=== PATIENT | male | born 1955 | race Caucasian/White ===

== ENCOUNTER 2018-09-02 09:14 | Observation (INO) | payer OTHER ==
[~2018-09-02] VITALS: Ht 175.3 cm; Wt 100.0 kg
[~2018-09-02 09:14] MED LIST: CYAN10005 PO; ERGO500027 PO; HYDR-2869 PO; LIPA1CAP6 PO; LOSA-73 PO; MELO15TA23 PO; OMEP20TA63 PO; TRAM50TA PO
[2018-09-02] MEDS ORDERED: IV NORMAL SALINE 1000ML BAG 1,000 ML IV SCH (09:27)
[2018-09-02] MEDS ORDERED: ASPIRIN CHEWABLE 81 MG TABLET. PO ONE (09:30)
[2018-09-02] MEDS ORDERED: ONDANSETRON PF 4 MG/2 ML VIAL. IV ONE (09:30)
--- NOTE | 2018-09-02 09:31 | PHYS DOC ---
Past Medical History Past Medical History: Hypertension, Pancreatitis Past Surgical History: Tonsillectomy Additional Past Surgical Histo: hernia repair. Alcohol Use: Heavy (on the weekends) Drug Use: None Adult General Chief Complaint Chief Complaint: CHEST PAIN HPI HPI Patient is a 62 year old male who presents with chest pain. This started yesterday morning. It has been getting worse over time. Patient describes it as both sharp and dull, no radiation, no association with exertion or movement. Patient had similar but less intense pain and he had previous pancreatitis. Patient has had some nausea for the past 2 days, even before this started, after eating some frozen sausage at home. Patient denies any travel, denies cough or fever. Denies any radiation of the discomfort. Notes that his pillow was soaking wet this morning. Otherwise denies any diaphoresis.[] Review of Systems Review of Systems Constitutional: Denies fever or chills [] Eyes: Denies change in visual acuity, redness, or eye pain [] HENT: Denies nasal congestion or sore throat [] Respiratory: Denies cough or shortness of breath [] Cardiovascular: No additional information not addressed in HPI [] GI: Denies abdominal pain, nausea, vomiting, bloody stools or diarrhea [] : Denies dysuria or hematuria [] Musculoskeletal: Denies back pain or joint pain [] Integument: Denies rash or skin lesions [] Neurologic: Denies headache, focal weakness or sensory changes [] Endocrine: Denies polyuria or polydipsia [] All other systems were reviewed and found to be within normal limits, except as documented in this note. Current Medications Current Medications Current Medications Medications (Trade) Dose Ordered Sig/Abimael Start Time Stop Time Status Last Admin Dose Admin Aspirin (Children'S Aspirin) 324 mg 1X ONCE 09/02/18 09:30 09/02/18 09:31 DC 09/02/18 09:52 324 MG Info (CONTRAST GIVEN -- Rx MONITORING) 1 each PRN DAILY PRN 09/02/18 11:45 09/04/18 11:44 Iohexol (Omnipaque 300 Mg/ml) 75 ml 1X ONCE 09/02/18 11:30 09/02/18 11:31 DC 09/02/18 11:38 75 ML Morphine Sulfate (Morphine Sulfate) 4 mg 1X ONCE 09/02/18 13:00 09/02/18 13:02 DC 09/02/18 13:09 4 MG Ondansetron HCl (Zofran) 4 mg 1X ONCE 09/02/18 09:30 09/02/18 09:31 DC 09/02/18 09:49 4 MG Sodium Chloride 1,000 ml @ 1,000 mls/hr Q1H 09/02/18 09:27 09/02/18 10:26 DC 09/02/18 09:47 1,000 MLS/HR Allergies Allergies Allergies Coded Allergies Type Severity Reaction Last Updated Verified No Known Drug Allergies 12/07/15 No Physical Exam Physical Exam Constitutional: Well developed, well nourished, mild discomfort, non-toxic appearance. [] HENT: Normocephalic, atraumatic, bilateral external ears normal, oropharynx moist, no oral exudates, nose normal. [] Eyes: PERRLA, EOMI, conjunctiva normal, no discharge. [] Neck: Normal range of motion, no tenderness, supple, no stridor. [] Cardiovascular:Heart rate regular rhythm, no murmur [] Lungs & Thorax: Bilateral breath sounds clear to auscultation [] Abdomen: Bowel sounds normal, soft, no tenderness, no masses, no pulsatile masses. [] Skin: Warm, dry, no erythema, no rash. [] Back: No tenderness, no CVA tenderness. [] Extremities: No tenderness, no cyanosis, no clubbing, ROM intact, no edema. [] Neurologic: Alert and oriented X 3, normal motor function, normal sensory function, no focal deficits noted. [] Psychologic: Affect normal, judgement normal, mood normal. [] Current Patient Data Vital Signs Vital Signs Date Time Temp Pulse Resp B/P (MAP) Pulse Ox O2 Delivery O2 Flow Rate FiO2 09/02/18 10:30 70 11 148/91 (110) 96 Room Air 09/02/18 09:14 98.0 98.0 Lab Values Laboratory Tests Test 09/02/18 09:29 09/02/18 09:39 09/02/18 09:40 D-Dimer (Flaquita) 0.59 ug/mlFEU (0.00-0.50) H POC Troponin I 0.00 ng/ml (<0.08) White Blood Count 7.7 x10^3/uL (4.0-11.0) Red Blood Count 5.07 x10^6/uL (4.30-5.70) Hemoglobin 15.2 g/dL (13.0-17.5) Hematocrit 45.1 % (39.0-53.0) Mean Corpuscular Volume 89 fL (79-100) Mean Corpuscular Hemoglobin 30 pg (25-35) Mean Corpuscular Hemoglobin Concent 34 g/dL (31-37) Red Cell Distribution Width 12.9 % (11.5-14.5) Platelet Count 233 x10^3/uL (140-400) Neutrophils (%) (Auto) 72 % (31-73) Lymphocytes (%) (Auto) 14 % (24-48) L Monocytes (%) (Auto) 11 % (0-9) H Eosinophils (%) (Auto) 1 % (0-3) Basophils (%) (Auto) 1 % (0-3) Neutrophils # (Auto) 5.5 x10^3uL (1.8-7.7) Lymphocytes # (Auto) 1.1 x10^3/uL (1.0-4.8) Monocytes # (Auto) 0.9 x10^3/uL (0.0-1.1) Eosinophils # (Auto) 0.1 x10^3/uL (0.0-0.7) Basophils # (Auto) 0.1 x10^3/uL (0.0-0.2) Prothrombin Time 13.3 SEC (11.7-14.0) Prothrombin Time INR 1.0 (0.8-1.1) Sodium Level 139 mmol/L (136-145) Potassium Level 4.0 mmol/L (3.5-5.1) Chloride Level 100 mmol/L (98-107) Carbon Dioxide Level 27 mmol/L (21-32) Anion Gap 12 (6-14) Blood Urea Nitrogen 12 mg/dL (8-26) Creatinine 1.0 mg/dL (0.7-1.3) Estimated GFR (Cockcroft-Gault) 75.7 BUN/Creatinine Ratio 12 (6-20) Glucose Level 107 mg/dL (70-99) H Calcium Level 8.4 mg/dL (8.5-10.1) L Magnesium Level 1.7 mg/dL (1.8-2.4) L Total Bilirubin 0.9 mg/dL (0.2-1.0) Aspartate Amino Transferase (AST) 71 U/L (15-37) H Alanine Aminotransferase (ALT) 82 U/L (16-63) H Alkaline Phosphatase 76 U/L (46-116) Troponin I Quantitative < 0.017 ng/mL (0.000-0.055) XB-Ilf-H-Type Natriuretic Peptide 83 pg/mL (0-124) Total Protein 7.1 g/dL (6.4-8.2) Albumin 3.7 g/dL (3.4-5.0) Albumin/Globulin Ratio 1.1 (1.0-1.7) Lipase 30 U/L (73-393) L Laboratory Tests 09/02/18 09:40 Laboratory Tests 09/02/18 09:40 EKG EKG EKG shows a sinus rhythm at 79 bpm, normal axis, normal QTC at 423 ms, no ST elevations, no acute changes when compared with EKG of 07/07/2018. This was interpreted by me at 0921[] Radiology/Procedures Radiology/Procedures PROCEDURE: PORTABLE CHEST 1V CLINICAL INDICATION: CHEST PAIN COMPARISON: None FINDINGS: No pneumothorax identified. Cardiac and mediastinal contours unremarkable. No pulmonary consolidation or acute airspace disease. No acute osseous abnormalities identified. IMPRESSION: No pulmonary consolidation or acute airspace disease. TECHNIQUE: CT abdomen and pelvis with IV contrast with multiplanar reformats. COMPARISON: 07/07/2018 FINDINGS: Heart is normal in size. No pericardial or pleural effusion. Clear lung bases. Scattered calcified granulomas in the spleen and liver. Otherwise, liver, adrenals, spleen and gallbladder are within normal limits. Diffuse dystrophic calcifications are seen in the pancreas. No peripancreatic inflammatory changes. Stable diffusely dilated main pancreatic duct measuring 1.8 cm in the pancreatic head, previously seen. CBD is nondilated. No enlarged retroperitoneal or pelvic adenopathy. No free pelvic fluid or ascites. Exophytic low attenuating lesion is seen in the interpolar left kidney measuring 2.2 x 1.4 cm, previously 2.2 x 1.4 cm. Low attenuating lesion in the inferior pole of the right kidney most likely simple cysts. No nephrolithiasis or hydronephrosis. The prostate and seminal vesicles show no large mass. Small bilateral fat-containing inguinal hernia. No bowel obstruction. Normal appendix. Urinary bladder is within normal limits. No suspicious bony lesion. IMPRESSION: 1. Stigmata of chronic pancreatitis with stable diffuse dilation of the main pancreatic duct. No peripancreatic inflammatory changes or pseudocyst.. 2. Likely couple of simple or minimally complicated renal cysts.[] Course & Med Decision Making Course & Med Decision Making Pertinent Labs and Imaging studies reviewed. (See chart for details) ED course: Patient arrived, was placed in bed, in tolerated exam well. Patient required several doses of morphine for pain management during his emergency department stay. He was transported to and from [place] without complications. After the return of the laboratory and imaging findings, these were discussed with the patient voiced understanding. All questions were answered. Concern for this significant pain being of potential cardiac etiology, consultation was made with hospitalist service who graciously admitted him. Patient was admitted in improved condition Medical decision making: This does not appear to be an ST elevation [place], however there is concerned about this being of potential cardiac etiology. There is no evidence of pneumonia, pneumothorax, congestive heart failure, thoracic aneurysm dissection, nor esophageal rupture. There is no evidence of pancreatitis on CT imaging that is new, rather it appears to be chronic pancreatitis on CT scan. [] Dragon Disclaimer Dragon Disclaimer This electronic medical record was generated, in whole or in part, using a voice recognition dictation system. Departure Departure Impression: Primary Impression: Chest pain Disposition: ADMITTED INPATIENT Admitting Physician: Other Condition: IMPROVED Referrals: OMKAR SHIN MD (PCP) Problem Qualifiers Primary Impression: Chest pain Chest pain type: unspecified Qualified Codes: R07.9 - Chest pain, unspecified LAI KEITA DO Sep 02, 2018 09:31
[2018-09-02] MEDS ORDERED: MORPHINE SULFATE 4 MG/ML VIAL. IV ONE ×2 (10:00→13:00)
--- NOTE | 2018-09-02 10:01 | RAD ---
PROCEDURE: PORTABLE CHEST 1V CLINICAL INDICATION: CHEST PAIN COMPARISON: None FINDINGS: No pneumothorax identified. Cardiac and mediastinal contours unremarkable. No pulmonary consolidation or acute airspace disease. No acute osseous abnormalities identified. IMPRESSION: No pulmonary consolidation or acute airspace disease. Electronically signed by: Alexander Hsieh DO (09/02/2018 9:58 AM) [id number]
[2018-09-02 10:02] LABS: BASO # 0.1 x10^3/uL (0.0-0.2); BASO % 1 % (0-3); EOS # 0.1 x10^3/uL (0.0-0.7); EOS % 1 % (0-3); HEMATOCRIT 45.1 % (39.0-53.0); HEMOGLOBIN 15.2 g/dL (13.0-17.5); LYMPH # 1.1 x10^3/uL (1.0-4.8); LYMPH % 14 % (24-48); MEAN CORPUSCULAR HEMOGLOBIN 30 pg (25-35); MEAN CORPUSCULAR HGB CONC 34 g/dL (31-37); MEAN CORPUSCULAR VOLUME 89 fL (79-100); MONO # 0.9 x10^3/uL (0.0-1.1); MONO % 11 % (0-9); NEUT # 5.5 x10^3uL (1.8-7.7); NEUT % 72 % (31-73); PLATELET COUNT 233 x10^3/uL (140-400); RED BLOOD COUNT 5.07 x10^6/uL (4.30-5.70); RED CELL DISTRIBUTION WIDTH 12.9 % (11.5-14.5); WHITE BLOOD COUNT 7.7 x10^3/uL (4.0-11.0)
[2018-09-02 10:07] LABS: PROTHROMBIN TIME PATIENT 13.3 SEC (11.7-14.0)
[2018-09-02 10:15] LABS: CALCIUM 8.4 mg/dL (8.5-10.1); GFR 75.7
[2018-09-02 10:20] LABS: ALBUMIN 3.7 g/dL (3.4-5.0); ALBUMIN/GLOBULIN RATIO 1.1 (1.0-1.7); MAGNESIUM 1.7 mg/dL (1.8-2.4); TOTAL BILIRUBIN 0.9 mg/dL (0.2-1.0); TOTAL PROTEIN 7.1 g/dL (6.4-8.2)
[2018-09-02] MEDS ORDERED: IOHEXOL 300 MG/ML 100ML VIAL. IV ONE (11:30)
[2018-09-02] MEDS ORDERED: CONTRAST GIVEN. MC PRN (11:45)
--- NOTE | 2018-09-02 12:06 | RAD ---
PQRS Compliance statement: One or more of the following individualized dose reduction techniques were utilized for this examination: 1. Automated exposure control. 2. Adjustment of the mA and/or kV according to patient size. 3. Use of iterative reconstruction technique. Indication:ABD PAIN H/O PANCREATITIS PREV SENT INJ 75ML OMNI 300 TECHNIQUE: CT abdomen and pelvis with IV contrast with multiplanar reformats. COMPARISON: 07/07/2018 FINDINGS: Heart is normal in size. No pericardial or pleural effusion. Clear lung bases. Scattered calcified granulomas in the spleen and liver. Otherwise, liver, adrenals, spleen and gallbladder are within normal limits. Diffuse dystrophic calcifications are seen in the pancreas. No peripancreatic inflammatory changes. Stable diffusely dilated main pancreatic duct measuring 1.8 cm in the pancreatic head, previously seen. CBD is nondilated. No enlarged retroperitoneal or pelvic adenopathy. No free pelvic fluid or ascites. Exophytic low attenuating lesion is seen in the interpolar left kidney measuring 2.2 x 1.4 cm, previously 2.2 x 1.4 cm. Low attenuating lesion in the inferior pole of the right kidney most likely simple cysts. No nephrolithiasis or hydronephrosis. The prostate and seminal vesicles show no large mass. Small bilateral fat-containing inguinal hernia. No bowel obstruction. Normal appendix. Urinary bladder is within normal limits. No suspicious bony lesion. IMPRESSION: 1. Stigmata of chronic pancreatitis with stable diffuse dilation of the main pancreatic duct. No peripancreatic inflammatory changes or pseudocyst.. 2. Likely couple of simple or minimally complicated renal cysts. Electronically signed by: Alexander Hsieh DO (09/02/2018 12:03 PM) [id number]
[2018-09-02] MEDS ORDERED: cloNIDine HCL 0.1 MG TABLET PO PRN (13:15)
[2018-09-02] MEDS ORDERED: ONDANSETRON PF 4 MG/2 ML VIAL. IV PRN (13:15)
[2018-09-02] MEDS ORDERED: ACETAMINOPHEN 325 MG TABLET. PO PRN (13:15)
[2018-09-02] MEDS ORDERED: guaiFENesin ORAL 200 MG/10 ML LIQUID. PO PRN (13:15)
[2018-09-02] MEDS ORDERED: SODIUM PHOSPHATES 19/7GM 133 ML ENEMA. PR PRN (13:15)
[2018-09-02] MEDS ORDERED: DOCUSATE SODIUM 100 MG CAPSULE. PO PRN (13:15)
--- NOTE | 2018-09-02 15:14 | EKG ---
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
[2018-09-02] MEDS ORDERED: IPRATRPIUM/ALBUTEROL 0.5/2.5MG 3 ML NEBU. NEB SCH ×2 (16:00)
[2018-09-02 16:30] VITALS: BP 159/95
--- NOTE | 2018-09-02 16:36 | PDOC1 ---
History and Physical Date of Admission Date of Admission 09/02/2018 Identification/Chief Complaint Chief Complaint bonilla townsend Problems: (1) Chronic pancreatitis Source Source: Patient History of Present Illness History of Present Illness Patient is a 69-year-old gentleman with past medical history of pancreatitis in the past. Comes today with a history of 2 days evolution of epigastric discomfort with nausea. As a consequence of his symptoms he has not had any oral intake food or water. Very little fluids he relates after eating him on a different way. The patient relates that his symptoms are very similar as his past pancreatitis bouts. He seems dehydrated and in acute distress due to his discomfort. He denies emesis hematemesis no diarrhea he denies chest pain precordial per se. There is that discomfort in the epigastrium no radiation to the back no fever or chills were reported no cough or sputum production has been reported either. We have been asked to admit for chest pain rule out and he seems to have more of a GI etiology of his symptoms rather than cardiac. EKG does not have ischemic changes troponin is not elevated and despite his lipase being normal given that he has had several bouts in the past this may be a false negative lab results. The patient has a mild elevation of d-dimer which adjusted for age is in the normal range. He is being admitted for further treatment of his symptoms He denies diaphoresis sensation of impending doom or angina-type of symptoms. ER record: Patient is a 62 year old male who presents with chest pain. This started yesterday morning. It has been getting worse over time. Patient describes it as both sharp and dull, no radiation, no association with exertion or movement. Patient had similar but less intense pain and he had previous pancreatitis. Patient has had some nausea for the past 2 days, even before this started, after eating some frozen sausage at home. Patient denies any travel, denies cough or fever. Denies any radiation of the discomfort. Notes that his pillow was soaking wet this morning. Otherwise denies any diaphoresis. Past Medical History Cardiovascular: HTN Psych: Anxiety, Addictions Past Surgical History Past Surgical History: Tonsillectomy Family History Family History: Family History Unknown Social History ALCOHOL: heavy Drugs: None Current Problem List Problem List Problems Medical Problems: (1) Chest pain Status: Acute Current Medications Current Medications Current Medications Medications (Trade) Dose Ordered Sig/Abimael Start Time Stop Time Status Last Admin Dose Admin Acetaminophen (Tylenol) 650 mg PRN Q4HRS PRN 09/02/18 13:15 Albuterol/ Ipratropium (Duoneb) 3 ml Q4HRS 09/02/18 16:00 UNV Aspirin (Children'S Aspirin) 324 mg 1X ONCE 09/02/18 09:30 09/02/18 09:31 DC 09/02/18 09:52 324 MG Clonidine HCl (Catapres) 0.1 mg PRN Q6HRS PRN 09/02/18 13:15 Cyanocobalamin (Vitamin B-12) 1,000 mcg DAILY 09/03/18 09:00 UNV Docusate Sodium (Colace) 100 mg PRN BID PRN 09/02/18 13:15 Enoxaparin Sodium (Lovenox 40mg Syringe) 40 mg DAILY 09/03/18 09:00 Ergocalciferol (Vitamin D2) 50,000 unit WEEKLY 09/09/18 09:00 Guaifenesin (Robitussin) 200 mg PRN Q4HRS PRN 09/02/18 13:15 Info (CONTRAST GIVEN -- Rx MONITORING) 1 each PRN DAILY PRN 09/02/18 11:45 09/04/18 11:44 Iohexol (Omnipaque 300 Mg/ml) 75 ml 1X ONCE 09/02/18 11:30 09/02/18 11:31 DC 09/02/18 11:38 75 ML Lorazepam (Ativan) 0.5 mg PRN Q4HRS PRN 09/02/18 13:15 Losartan Potassium (Cozaar) 50 mg DAILY 09/03/18 09:00 UNV Morphine Sulfate (Morphine Sulfate) 4 mg 1X ONCE 09/02/18 13:00 09/02/18 13:02 DC 09/02/18 13:09 4 MG Non-Formulary Medication (Hydralazine Hcl ) 50 mg TID 09/02/18 14:00 UNV Non-Formulary Medication (Lipase/Protease/ Amylase (Creon Dr 24,000 Units Capsule)) 1 each QID 09/02/18 17:00 UNV Non-Formulary Medication (Omeprazole Magnesium (Prilosec Otc)) 1 tab DAILY 09/03/18 09:00 UNV Ondansetron HCl (Zofran) 4 mg PRN Q4HRS PRN 09/02/18 13:15 Sodium Monofluorophosphate (Fleet Adult) 133 ml PRN DAILY PRN 09/02/18 13:15 Sodium Chloride 1,000 ml @ 1,000 mls/hr Q1H 09/02/18 09:27 09/02/18 10:26 DC 09/02/18 09:47 1,000 MLS/HR Tramadol HCl (Ultram) 50 mg PRN Q6HRS PRN 09/02/18 13:15 Zolpidem Tartrate (Ambien) 5 mg PRN QHS PRN 09/02/18 13:15 Allergies Allergies Allergies Coded Allergies Type Severity Reaction Last Updated Verified No Known Drug Allergies 12/07/15 No ROS Review of System CONSTITUTIONAL: No fever or chills EYES: No recent changes SKIN: No rash or itching CARDIOVASCULAR: No chest pain, syncope, palpitations, or edema RESPIRATORY: No SOB or cough GASTROINTESTINAL: No nausea, vomiting or abdominal pain NEUROLOGICAL: No headaches or weakness ENDOCRINE: No cold or heat intolerance GENITOURINARY: No urgency or frequency of urination MUSCULOSKELETAL: No back pain or joint pain LYMPHATICS: No enlarged lymph nodes PSYCHIATRIC: No anxiety or depression Physical Exam Physical Exam GEN.: No apparent distress. Alert and oriented. HEENT: Head is normocephalic, atraumatic NECK: Supple. LUNGS: Clear to auscultation. HEART: RRR, S1, S2 present. Peripheral pulses intact ABDOMEN: Soft, nontender. Positive bowel sounds. EXTREMITIES: Without any cyanosis. NEUROLOGIC: Normal speech, normal tone PSYCHIATRIC: Normal affect, normal mood. SKIN: No ulcerations Vitals Vitals Vital Signs Date Time Temp Pulse Resp B/P (MAP) Pulse Ox O2 Delivery O2 Flow Rate FiO2 09/02/18 13:09 11 95 Room Air 09/02/18 10:30 70 148/91 (110) 09/02/18 09:14 98.0 98.0 Labs Labs Laboratory Tests Test 09/02/18 09:29 09/02/18 09:39 09/02/18 09:40 D-Dimer (Flaquita) 0.59 ug/mlFEU (0.00-0.50) Bedside Troponin I 0.00 ng/ml (<0.08) White Blood Count 7.7 x10^3/uL (4.0-11.0) Red Blood Count 5.07 x10^6/uL (4.30-5.70) Hemoglobin 15.2 g/dL (13.0-17.5) Hematocrit 45.1 % (39.0-53.0) Mean Corpuscular Volume 89 fL (79-100) Mean Corpuscular Hemoglobin 30 pg (25-35) Mean Corpuscular Hemoglobin Concent 34 g/dL (31-37) Red Cell Distribution Width 12.9 % (11.5-14.5) Platelet Count 233 x10^3/uL (140-400) Neutrophils (%) (Auto) 72 % (31-73) Lymphocytes (%) (Auto) 14 % (24-48) Monocytes (%) (Auto) 11 % (0-9) Eosinophils (%) (Auto) 1 % (0-3) Basophils (%) (Auto) 1 % (0-3) Neutrophils # (Auto) 5.5 x10^3uL (1.8-7.7) Lymphocytes # (Auto) 1.1 x10^3/uL (1.0-4.8) Monocytes # (Auto) 0.9 x10^3/uL (0.0-1.1) Eosinophils # (Auto) 0.1 x10^3/uL (0.0-0.7) Basophils # (Auto) 0.1 x10^3/uL (0.0-0.2) Prothrombin Time 13.3 SEC (11.7-14.0) Prothromb Time International Ratio 1.0 (0.8-1.1) Sodium Level 139 mmol/L (136-145) Potassium Level 4.0 mmol/L (3.5-5.1) Chloride Level 100 mmol/L (98-107) Carbon Dioxide Level 27 mmol/L (21-32) Anion Gap 12 (6-14) Blood Urea Nitrogen 12 mg/dL (8-26) Creatinine 1.0 mg/dL (0.7-1.3) Estimated GFR (Cockcroft-Gault) 75.7 BUN/Creatinine Ratio 12 (6-20) Glucose Level 107 mg/dL (70-99) Calcium Level 8.4 mg/dL (8.5-10.1) Magnesium Level 1.7 mg/dL (1.8-2.4) Total Bilirubin 0.9 mg/dL (0.2-1.0) Aspartate Amino Transf (AST/SGOT) 71 U/L (15-37) Alanine Aminotransferase (ALT/SGPT) 82 U/L (16-63) Alkaline Phosphatase 76 U/L (46-116) Troponin I Quantitative < 0.017 ng/mL (0.000-0.055) RK-Zlm-P-Type Natriuretic Peptide 83 pg/mL (0-124) Total Protein 7.1 g/dL (6.4-8.2) Albumin 3.7 g/dL (3.4-5.0) Albumin/Globulin Ratio 1.1 (1.0-1.7) Lipase 30 U/L (73-393) Laboratory Tests Test 09/02/18 09:29 09/02/18 09:39 09/02/18 09:40 D-Dimer (Flaquita) 0.59 ug/mlFEU (0.00-0.50) Bedside Troponin I 0.00 ng/ml (<0.08) White Blood Count 7.7 x10^3/uL (4.0-11.0) Red Blood Count 5.07 x10^6/uL (4.30-5.70) Hemoglobin 15.2 g/dL (13.0-17.5) Hematocrit 45.1 % (39.0-53.0) Mean Corpuscular Volume 89 fL (79-100) Mean Corpuscular Hemoglobin 30 pg (25-35) Mean Corpuscular Hemoglobin Concent 34 g/dL (31-37) Red Cell Distribution Width 12.9 % (11.5-14.5) Platelet Count 233 x10^3/uL (140-400) Neutrophils (%) (Auto) 72 % (31-73) Lymphocytes (%) (Auto) 14 % (24-48) Monocytes (%) (Auto) 11 % (0-9) Eosinophils (%) (Auto) 1 % (0-3) Basophils (%) (Auto) 1 % (0-3) Neutrophils # (Auto) 5.5 x10^3uL (1.8-7.7) Lymphocytes # (Auto) 1.1 x10^3/uL (1.0-4.8) Monocytes # (Auto) 0.9 x10^3/uL (0.0-1.1) Eosinophils # (Auto) 0.1 x10^3/uL (0.0-0.7) Basophils # (Auto) 0.1 x10^3/uL (0.0-0.2) Prothrombin Time 13.3 SEC (11.7-14.0) Prothromb Time International Ratio 1.0 (0.8-1.1) Sodium Level 139 mmol/L (136-145) Potassium Level 4.0 mmol/L (3.5-5.1) Chloride Level 100 mmol/L (98-107) Carbon Dioxide Level 27 mmol/L (21-32) Anion Gap 12 (6-14) Blood Urea Nitrogen 12 mg/dL (8-26) Creatinine 1.0 mg/dL (0.7-1.3) Estimated GFR (Cockcroft-Gault) 75.7 BUN/Creatinine Ratio 12 (6-20) Glucose Level 107 mg/dL (70-99) Calcium Level 8.4 mg/dL (8.5-10.1) Magnesium Level 1.7 mg/dL (1.8-2.4) Total Bilirubin 0.9 mg/dL (0.2-1.0) Aspartate Amino Transf (AST/SGOT) 71 U/L (15-37) Alanine Aminotransferase (ALT/SGPT) 82 U/L (16-63) Alkaline Phosphatase 76 U/L (46-116) Troponin I Quantitative < 0.017 ng/mL (0.000-0.055) YF-Dzi-M-Type Natriuretic Peptide 83 pg/mL (0-124) Total Protein 7.1 g/dL (6.4-8.2) Albumin 3.7 g/dL (3.4-5.0) Albumin/Globulin Ratio 1.1 (1.0-1.7) Lipase 30 U/L (73-393) VTE Prophylaxis Ordered VTE Prophylaxis Devices: Contraindicated VTE Pharmacological Prophylaxi: Yes Assessment/Plan Assessment/Plan Epigastric pain likely secondary to pancreatitis Report of chest pain as per ER physician who requested admission for rule out History of hypertension Obesity with a BMI of 31 History of chronic pancreatitis Plan: Continue trending his troponins Request a cardiology consultation We'll keep patient nothing by mouth IV fluid resuscitation with lactated Ringer's Pain management We'll give Protonix IV DVT prophylaxis with Lovenox Further recommendations based on the clinical course ELIZABETH FLANNERY MD Sep 02, 2018 16:36
[2018-09-02] MEDS: LIPASE/PROTEAS/AMYLAS 10/32/42 CAPSULE.DR. PO SCH ×2 (16:39→21:16)
[2018-09-02] MEDS: traMADol 50 MG TABLET PO PRN (16:39)
[2018-09-02] MEDS: IV RINGERS,LACTATED 1000ML 1,000 ML IV SCH (16:40)
[2018-09-02] MEDS ORDERED: ALBUTEROL SULFATE 2.5 MG/3 ML NEBU. NEB PRN (17:45)
[2018-09-02] MEDS ORDERED: IPRATRPIUM/ALBUTEROL 0.5/2.5MG 3 ML NEBU. NEB PRN (17:45)
[2018-09-02] MEDS: LORazepam 0.5 MG TABLET PO PRN (18:26)
[2018-09-02 19:00] VITALS: BP 141/88
[2018-09-02] MEDS: ZOLPIDEM 5 MG TABLET. PO PRN (23:07)
[2018-09-02 23:13] VITALS: BP 134/84
[2018-09-03] VITALS (7 sets, daily range): BP systolic 135–159; BP diastolic 87–100
[2018-09-03] MEDS: IV RINGERS,LACTATED 1000ML 1,000 ML IV SCH ×2 (03:00→15:00)
[2018-09-03] MEDS: traMADol 50 MG TABLET PO PRN ×3 (04:48→16:57)
[2018-09-03] MEDS: LIPASE/PROTEAS/AMYLAS 10/32/42 CAPSULE.DR. PO SCH ×4 (07:30→20:16)
--- NOTE | 2018-09-03 08:31 | PDOC ---
PROGRESS NOTES Chief Complaint Chief Complaint Epigastric pain likely secondary to pancreatitis Report of chest pain as per ER physician who requested admission for rule out History of hypertension Obesity with a BMI of 31 History of chronic pancreatitis ER record: Patient is a 62 year old male who presents with chest pain. This started yesterday morning. It has been getting worse over time. Patient describes it as both sharp and dull, no radiation, no association with exertion or movement. Patient had similar but less intense pain and he had previous pancreatitis. Patient has had some nausea for the past 2 days, even before this started, after eating some frozen sausage at home. Patient denies any travel, denies cough or fever. Denies any radiation of the discomfort. Notes that his pillow was soaking wet this morning. Otherwise denies any diaphoresis. History of Present Illness History of Present Illness 69-year-old gentleman with past medical history of pancreatitis in the past. Comes today with a history of 2 days evolution of epigastric discomfort with nausea. As a consequence of his symptoms he has not had any oral intake food or water. Very little fluids he relates after eating him on a different way. The patient relates that his symptoms are very similar as his past pancreatitis bouts. He seems dehydrated and in acute distress due to his discomfort. He denies emesis hematemesis no diarrhea he denies chest pain precordial per se. There is that discomfort in the epigastrium no radiation to the back no fever or chills were reported no cough or sputum production has been reported either. We have been asked to admit for chest pain rule out and he seems to have more of a GI etiology of his symptoms rather than cardiac. EKG does not have ischemic changes troponin is not elevated and despite his lipase being normal given that he has had several bouts in the past this may be a false negative lab results. The patient has a mild elevation of d-dimer which adjusted for age is in the normal range. He is being admitted for further treatment of his symptoms He denies diaphoresis sensation of impending doom or angina-type of symptoms. Was seen by cardiology anyway, non-cardiac. He has a bit of an appetite today and is insisting to eat and states he will be ready for d/c tomorrow. Plan: CMP in AM ADAT IV pain control, can transition to oral as tolerated for acute on chronic pancreatitis with acute transaminitis Transfer to med/surg Vitals Vitals Vital Signs Date Time Temp Pulse Resp B/P (MAP) Pulse Ox O2 Delivery O2 Flow Rate FiO2 09/03/18 07:00 98.0 83 22 143/99 (114) 94 98.0 09/03/18 04:48 Room Air Physical Exam General: Alert, Oriented X3, Cooperative, mild distress Heart: Regular rate, Normal S1, Normal S2 Lungs: Clear Abdomen: Normal bowel sounds, Soft Labs LABS Laboratory Tests Test 09/02/18 09:29 09/02/18 09:39 09/02/18 09:40 D-Dimer (Flaquita) 0.59 ug/mlFEU (0.00-0.50) Bedside Troponin I 0.00 ng/ml (<0.08) White Blood Count 7.7 x10^3/uL (4.0-11.0) Red Blood Count 5.07 x10^6/uL (4.30-5.70) Hemoglobin 15.2 g/dL (13.0-17.5) Hematocrit 45.1 % (39.0-53.0) Mean Corpuscular Volume 89 fL (79-100) Mean Corpuscular Hemoglobin 30 pg (25-35) Mean Corpuscular Hemoglobin Concent 34 g/dL (31-37) Red Cell Distribution Width 12.9 % (11.5-14.5) Platelet Count 233 x10^3/uL (140-400) Neutrophils (%) (Auto) 72 % (31-73) Lymphocytes (%) (Auto) 14 % (24-48) Monocytes (%) (Auto) 11 % (0-9) Eosinophils (%) (Auto) 1 % (0-3) Basophils (%) (Auto) 1 % (0-3) Neutrophils # (Auto) 5.5 x10^3uL (1.8-7.7) Lymphocytes # (Auto) 1.1 x10^3/uL (1.0-4.8) Monocytes # (Auto) 0.9 x10^3/uL (0.0-1.1) Eosinophils # (Auto) 0.1 x10^3/uL (0.0-0.7) Basophils # (Auto) 0.1 x10^3/uL (0.0-0.2) Prothrombin Time 13.3 SEC (11.7-14.0) Prothromb Time International Ratio 1.0 (0.8-1.1) Sodium Level 139 mmol/L (136-145) Potassium Level 4.0 mmol/L (3.5-5.1) Chloride Level 100 mmol/L (98-107) Carbon Dioxide Level 27 mmol/L (21-32) Anion Gap 12 (6-14) Blood Urea Nitrogen 12 mg/dL (8-26) Creatinine 1.0 mg/dL (0.7-1.3) Estimated GFR (Cockcroft-Gault) 75.7 BUN/Creatinine Ratio 12 (6-20) Glucose Level 107 mg/dL (70-99) Calcium Level 8.4 mg/dL (8.5-10.1) Magnesium Level 1.7 mg/dL (1.8-2.4) Total Bilirubin 0.9 mg/dL (0.2-1.0) Aspartate Amino Transf (AST/SGOT) 71 U/L (15-37) Alanine Aminotransferase (ALT/SGPT) 82 U/L (16-63) Alkaline Phosphatase 76 U/L (46-116) Troponin I Quantitative < 0.017 ng/mL (0.000-0.055) SN-Dln-N-Type Natriuretic Peptide 83 pg/mL (0-124) Total Protein 7.1 g/dL (6.4-8.2) Albumin 3.7 g/dL (3.4-5.0) Albumin/Globulin Ratio 1.1 (1.0-1.7) Lipase 30 U/L (73-393) Assessment and Plan Assessmemt and Plan Problems Medical Problems: (1) Chest pain Status: Acute Comment Review of Relevant I have reviewed the following items annelise (where applicable) has been applied. Labs Laboratory Tests Test 09/02/18 09:29 09/02/18 09:39 09/02/18 09:40 D-Dimer (Flaquita) 0.59 ug/mlFEU (0.00-0.50) Bedside Troponin I 0.00 ng/ml (<0.08) White Blood Count 7.7 x10^3/uL (4.0-11.0) Red Blood Count 5.07 x10^6/uL (4.30-5.70) Hemoglobin 15.2 g/dL (13.0-17.5) Hematocrit 45.1 % (39.0-53.0) Mean Corpuscular Volume 89 fL (79-100) Mean Corpuscular Hemoglobin 30 pg (25-35) Mean Corpuscular Hemoglobin Concent 34 g/dL (31-37) Red Cell Distribution Width 12.9 % (11.5-14.5) Platelet Count 233 x10^3/uL (140-400) Neutrophils (%) (Auto) 72 % (31-73) Lymphocytes (%) (Auto) 14 % (24-48) Monocytes (%) (Auto) 11 % (0-9) Eosinophils (%) (Auto) 1 % (0-3) Basophils (%) (Auto) 1 % (0-3) Neutrophils # (Auto) 5.5 x10^3uL (1.8-7.7) Lymphocytes # (Auto) 1.1 x10^3/uL (1.0-4.8) Monocytes # (Auto) 0.9 x10^3/uL (0.0-1.1) Eosinophils # (Auto) 0.1 x10^3/uL (0.0-0.7) Basophils # (Auto) 0.1 x10^3/uL (0.0-0.2) Prothrombin Time 13.3 SEC (11.7-14.0) Prothromb Time International Ratio 1.0 (0.8-1.1) Sodium Level 139 mmol/L (136-145) Potassium Level 4.0 mmol/L (3.5-5.1) Chloride Level 100 mmol/L (98-107) Carbon Dioxide Level 27 mmol/L (21-32) Anion Gap 12 (6-14) Blood Urea Nitrogen 12 mg/dL (8-26) Creatinine 1.0 mg/dL (0.7-1.3) Estimated GFR (Cockcroft-Gault) 75.7 BUN/Creatinine Ratio 12 (6-20) Glucose Level 107 mg/dL (70-99) Calcium Level 8.4 mg/dL (8.5-10.1) Magnesium Level 1.7 mg/dL (1.8-2.4) Total Bilirubin 0.9 mg/dL (0.2-1.0) Aspartate Amino Transf (AST/SGOT) 71 U/L (15-37) Alanine Aminotransferase (ALT/SGPT) 82 U/L (16-63) Alkaline Phosphatase 76 U/L (46-116) Troponin I Quantitative < 0.017 ng/mL (0.000-0.055) HZ-Miw-G-Type Natriuretic Peptide 83 pg/mL (0-124) Total Protein 7.1 g/dL (6.4-8.2) Albumin 3.7 g/dL (3.4-5.0) Albumin/Globulin Ratio 1.1 (1.0-1.7) Lipase 30 U/L (73-393) Laboratory Tests Test 09/02/18 09:29 09/02/18 09:39 09/02/18 09:40 D-Dimer (Flaquita) 0.59 ug/mlFEU (0.00-0.50) Bedside Troponin I 0.00 ng/ml (<0.08) White Blood Count 7.7 x10^3/uL (4.0-11.0) Red Blood Count 5.07 x10^6/uL (4.30-5.70) Hemoglobin 15.2 g/dL (13.0-17.5) Hematocrit 45.1 % (39.0-53.0) Mean Corpuscular Volume 89 fL (79-100) Mean Corpuscular Hemoglobin 30 pg (25-35) Mean Corpuscular Hemoglobin Concent 34 g/dL (31-37) Red Cell Distribution Width 12.9 % (11.5-14.5) Platelet Count 233 x10^3/uL (140-400) Neutrophils (%) (Auto) 72 % (31-73) Lymphocytes (%) (Auto) 14 % (24-48) Monocytes (%) (Auto) 11 % (0-9) Eosinophils (%) (Auto) 1 % (0-3) Basophils (%) (Auto) 1 % (0-3) Neutrophils # (Auto) 5.5 x10^3uL (1.8-7.7) Lymphocytes # (Auto) 1.1 x10^3/uL (1.0-4.8) Monocytes # (Auto) 0.9 x10^3/uL (0.0-1.1) Eosinophils # (Auto) 0.1 x10^3/uL (0.0-0.7) Basophils # (Auto) 0.1 x10^3/uL (0.0-0.2) Prothrombin Time 13.3 SEC (11.7-14.0) Prothromb Time International Ratio 1.0 (0.8-1.1) Sodium Level 139 mmol/L (136-145) Potassium Level 4.0 mmol/L (3.5-5.1) Chloride Level 100 mmol/L (98-107) Carbon Dioxide Level 27 mmol/L (21-32) Anion Gap 12 (6-14) Blood Urea Nitrogen 12 mg/dL (8-26) Creatinine 1.0 mg/dL (0.7-1.3) Estimated GFR (Cockcroft-Gault) 75.7 BUN/Creatinine Ratio 12 (6-20) Glucose Level 107 mg/dL (70-99) Calcium Level 8.4 mg/dL (8.5-10.1) Magnesium Level 1.7 mg/dL (1.8-2.4) Total Bilirubin 0.9 mg/dL (0.2-1.0) Aspartate Amino Transf (AST/SGOT) 71 U/L (15-37) Alanine Aminotransferase (ALT/SGPT) 82 U/L (16-63) Alkaline Phosphatase 76 U/L (46-116) Troponin I Quantitative < 0.017 ng/mL (0.000-0.055) GA-Pil-S-Type Natriuretic Peptide 83 pg/mL (0-124) Total Protein 7.1 g/dL (6.4-8.2) Albumin 3.7 g/dL (3.4-5.0) Albumin/Globulin Ratio 1.1 (1.0-1.7) Lipase 30 U/L (73-393) Medications Current Medications Aspirin (Children'S Aspirin) 324 mg 1X ONCE PO Last administered on 09/02/18 09:52; Start 09/02/18 at 09:30; Stop 09/02/18 at 09:31; Status DC Sodium Chloride 1,000 ml @ 1,000 mls/hr Q1H IV Last administered on 09/02/18at 09:47; Start 09/02/18 at 09:27; Stop 09/02/18 at 10:26; Status DC Ondansetron HCl (Zofran) 4 mg 1X ONCE IV Last administered on 3/8/19at 09:49; Start 09/02/18 at 09:30; Stop 09/02/18 at 09:31; Status DC Morphine Sulfate (Morphine Sulfate) 4 mg 1X ONCE IV Last administered on at 10:06; Start 09/02/18 at 10:00; Stop 09/02/18 at 10:01; Status DC Iohexol (Omnipaque 300 Mg/ml) 75 ml 1X ONCE IV Last administered on 09/02/18at 11:38; Start 09/02/18 at 11:30; Stop 09/02/18 at 11:31; Status DC Info (CONTRAST GIVEN -- Rx MONITORING) 1 each PRN DAILY PRN MC SEE COMMENTS; Start 09/02/18 at 11:45; Stop 09/04/18 at 11:44 Morphine Sulfate (Morphine Sulfate) 4 mg 1X ONCE IV Last administered on at 13:09; Start 09/02/18 at 13:00; Stop 09/02/18 at 13:02; Status DC Ondansetron HCl (Zofran) 4 mg PRN Q4HRS PRN IV NAUSEA/VOMITING; Start 09/02/18 at 13:15 Zolpidem Tartrate (Ambien) 5 mg PRN QHS PRN PO INSOMNIA Last administered on 09/02/18at 23:07; Start 09/02/18 at 13:15 Acetaminophen (Tylenol) 650 mg PRN Q4HRS PRN PO TEMP OVER 100.4F OR MILD PAIN; Start 09/02/18 at 13:15 Clonidine HCl (Catapres) 0.1 mg PRN Q6HRS PRN PO SBP>160 OR DBP>90; Start at 13:15 Sodium Monofluorophosphate (Fleet Adult) 133 ml PRN DAILY PRN MT CONSTIPATION; Start 09/02/18 at 13:15 Docusate Sodium (Colace) 100 mg PRN BID PRN PO CONSTIPATION; Start 09/02/18 at 13:15 Albuterol/ Ipratropium (Duoneb) 3 ml Q4HRS NEB ; Start 09/02/18 at 16:00; Stop at 17:44; Status DC Guaifenesin (Robitussin) 200 mg PRN Q4HRS PRN PO COUGH; Start 09/02/18 at 13:15 Lorazepam (Ativan) 0.5 mg PRN Q4HRS PRN PO ANXIETY / AGITATION Last administered on 09/02/18at 18:26; Start 09/02/18 at 13:15 Enoxaparin Sodium (Lovenox 40mg Syringe) 40 mg DAILY SQ ; Start 09/03/18 at 09:00 Cyanocobalamin (Vitamin B-12) 1,000 mcg DAILY PO ; Start 09/03/18 at 09:00 Ergocalciferol (Vitamin D2) 50,000 unit WEEKLY PO ; Start 09/09/18 at 09:00 Losartan Potassium (Cozaar) 50 mg DAILY PO ; Start 09/03/18 at 09:00 Tramadol HCl (Ultram) 50 mg PRN Q6HRS PRN PO MODERATE-SEVERE PAIN Last administered on 09/03/18at 04:48; Start 09/02/18 at 13:15 Hydralazine HCl (Apresoline) 50 mg TID PO Last administered on 09/02/18at 23:07; Start 09/02/18 at 17:00 Amylase/Lipase/ Protease (Zenpep 10,000) 2 cap QIDACHS PO Last administered on 09/02/18at 21:16; Start 09/02/18 at 17:00 Pantoprazole Sodium (Protonix) 40 mg DAILYAC PO ; Start 09/03/18 at 07:30 Albuterol/ Ipratropium (Duoneb) 3 ml Q4HRS NEB ; Start 09/02/18 at 16:00; Status UNV Ringer's Solution 1,000 ml @ 100 mls/hr Q10H IV Last administered on 09/03/18at 03:00; Start 09/02/18 at 17:00 Albuterol/ Ipratropium (Duoneb) 3 ml Q4HRS PRN NEB SHORTNESS OF BREATH; Start 09/02/18 at 17:45; Status UNV Albuterol Sulfate (Ventolin Neb Soln) 2.5 mg PRN Q4HRS PRN NEB SHORTNESS OF BREATH; Start 09/02/18 at 17:45 Active Scripts Active Hydralazine Hcl 50 Mg Tablet 50 Mg PO TID 30 Days Tramadol Hcl 50 Mg Tablet 1 Tab PO PRN Q6HRS 6 Days Prilosec Otc (Omeprazole Magnesium) 20 Mg Tablet. 1 Tab PO DAILY Reported Losartan Potassium 50 Mg Tablet 50 Mg PO DAILY Vitamin D2 (Ergocalciferol (Vitamin D2)) 50,000 Unit Capsule 1 Cap PO WEEKLY Vitamin B-12 (Cyanocobalamin (Vitamin B-12)) 1,000 Mcg Tablet 1 Tab PO DAILY Creon 24,000 Units Capsule (Lipase/Protease/Amylase) 1 Each Capsule. 1 Each PO QID Vitals/I & O Vital Sign - Last 24 Hours 09/02/18 09/02/18 09/02/18 09/02/18 09:14 09:30 10:00 10:06 Temp 98.0 98.0 Pulse 84 78 68 Resp 12 15 12 11 B/P (MAP) 140/91 (107) 140/91 (107) 139/95 (110) Pulse Ox 96 98 94 95 O2 Delivery Room Air Room Air Room Air Room Air 09/02/18 09/02/18 09/02/18 09/02/18 10:30 10:30 11:30 12:00 Pulse 70 70 64 70 Resp 11 11 9 10 B/P (MAP) 148/91 (110) 148/91 (110) 142/88 (106) 144/91 (108) Pulse Ox 96 96 95 96 O2 Delivery Room Air Room Air Room Air Room Air 09/02/18 09/02/18 09/02/18 09/02/18 13:00 13:09 13:30 14:00 Pulse 66 66 82 Resp 9 11 10 10 B/P (MAP) 145/97 (113) 152/97 (115) 148/94 (112) Pulse Ox 95 95 94 94 O2 Delivery Room Air Room Air Room Air Room Air 09/02/18 09/02/18 09/02/18 09/02/18 14:30 15:00 15:30 16:00 Pulse 64 64 62 66 Resp 9 12 9 18 B/P (MAP) 146/91 (109) 140/91 (107) 149/95 (113) 157/97 (117) Pulse Ox 95 94 94 95 O2 Delivery Room Air Room Air Room Air Room Air 09/02/18 09/02/18 09/02/18 09/02/18 16:30 16:39 16:39 19:00 Temp 97.9 98.4 97.9 98.4 Pulse 68 80 77 Resp 18 18 B/P (MAP) 159/95 (116) 159/95 141/88 (105) Pulse Ox 95 95 95 O2 Delivery Room Air Room Air 09/02/18 09/02/18 09/03/18 09/03/18 23:07 23:13 03:00 04:48 Temp 98.1 98.1 98.1 98.1 Pulse 80 74 82 Resp 22 18 16 B/P (MAP) 137/89 134/84 (101) 136/92 (107) Pulse Ox 95 94 O2 Delivery Room Air Room Air Room Air 09/03/18 09/03/18 05:48 07:00 Temp 98.0 98.0 Pulse 83 Resp 18 22 B/P (MAP) 143/99 (114) Pulse Ox 94 94 Intake and Output 09/02/18 09/02/18 09/03/18 15:00 23:00 07:00 Intake Total 1000 ml 180 ml Balance 1000 ml 180 ml MASTER MILLS MD Sep 03, 2018 08:31
[2018-09-03] MEDS: PANTOPRAZOLE 40 MG TABLET.DR. PO SCH (09:47)
[2018-09-03] MEDS: LOSARTAN POTASSIUM 50 MG TABLET. PO SCH (09:47)
--- NOTE | 2018-09-03 12:29 | PDOC2 ---
CARDIOLOGY CONSULT NOTE CHEIF COMPLAINT: Belly pain HPI: 62 y.o male with known chronic pancreatitis presenting with similar symptoms as in the past. Cardiology asked to rule out any cardiac source due to epigastric nature of his pain. Patient denies any baseline exertional dyspnea, angina, orthopnea, PND or LE edema. No syncope or palpitations. No prior cardiac issues. Patient states that he drank 2 pints a day for 3 days approximately 2 days prior to presentation. He states that his symptoms feel very similar to his prior pancreatitis bouts. PMHX: Chronic alcohol abuse. Prior tobacco abuse HTN SOCHX: Significant alcohol abuse prior tobacco abuse FAMHX: No significant fam hx of cAD or SCD CURRENT MEDS: Current Medications Medications (Trade) Dose Ordered Sig/Abimael Start Time Stop Time Status Last Admin Dose Admin Acetaminophen (Tylenol) 650 mg PRN Q4HRS PRN 09/02/18 13:15 Albuterol Sulfate (Ventolin Neb Soln) 2.5 mg PRN Q4HRS PRN 09/02/18 17:45 Albuterol/ Ipratropium (Duoneb) 3 ml Q4HRS PRN 09/02/18 17:45 UNV Amylase/Lipase/ Protease (Zenpep 10,000) 2 cap QIDACHS 09/02/18 17:00 09/02/18 21:16 2 CAP Aspirin (Children'S Aspirin) 324 mg 1X ONCE 09/02/18 09:30 09/02/18 09:31 DC 09/02/18 09:52 324 MG Clonidine HCl (Catapres) 0.1 mg PRN Q6HRS PRN 09/02/18 13:15 Cyanocobalamin (Vitamin B-12) 1,000 mcg DAILY 09/03/18 09:00 Docusate Sodium (Colace) 100 mg PRN BID PRN 09/02/18 13:15 Enoxaparin Sodium (Lovenox 40mg Syringe) 40 mg DAILY 09/03/18 09:00 Ergocalciferol (Vitamin D2) 50,000 unit WEEKLY 09/09/18 09:00 Guaifenesin (Robitussin) 200 mg PRN Q4HRS PRN 09/02/18 13:15 Hydralazine HCl (Apresoline) 50 mg TID 09/02/18 17:00 09/03/18 09:48 50 MG Info (CONTRAST GIVEN -- Rx MONITORING) 1 each PRN DAILY PRN 09/02/18 11:45 09/04/18 11:44 Iohexol (Omnipaque 300 Mg/ml) 75 ml 1X ONCE 09/02/18 11:30 09/02/18 11:31 DC 09/02/18 11:38 75 ML Lorazepam (Ativan) 0.5 mg PRN Q4HRS PRN 09/02/18 13:15 09/02/18 18:26 0.5 MG Losartan Potassium (Cozaar) 50 mg DAILY 09/03/18 09:00 09/03/18 09:47 50 MG Morphine Sulfate (Morphine Sulfate) 4 mg 1X ONCE 09/02/18 13:00 09/02/18 13:02 DC 09/02/18 13:09 4 MG Ondansetron HCl (Zofran) 4 mg PRN Q4HRS PRN 09/02/18 13:15 Pantoprazole Sodium (Protonix) 40 mg DAILYAC 09/03/18 07:30 09/03/18 09:47 40 MG Ringer's Solution 1,000 ml @ 100 mls/hr Q10H 09/02/18 17:00 09/03/18 03:00 100 MLS/HR Sodium Monofluorophosphate (Fleet Adult) 133 ml PRN DAILY PRN 09/02/18 13:15 Sodium Chloride 1,000 ml @ 1,000 mls/hr Q1H 09/02/18 09:27 09/02/18 10:26 DC 09/02/18 09:47 1,000 MLS/HR Tramadol HCl (Ultram) 50 mg PRN Q6HRS PRN 09/02/18 13:15 09/03/18 10:30 50 MG Zolpidem Tartrate (Ambien) 5 mg PRN QHS PRN 09/02/18 13:15 09/02/18 23:07 5 MG ALLERGIES: Allergies Coded Allergies Type Severity Reaction Last Updated Verified No Known Drug Allergies 12/07/15 No ROS: As noted above in HPI PHYSICAL EXAM: Vital Signs: Vital Signs Date Time Temp Pulse Resp B/P (MAP) Pulse Ox O2 Delivery O2 Flow Rate FiO2 09/03/18 10:59 97.7 77 20 144/96 (112) 94 Room Air 97.7 I & O Intake and Output 09/03/18 07:00 Intake Total 1180 ml Balance 1180 ml Intake Oral 180 ml IV Total 1000 ml # Voids 3 Physical Exam: GEN.: No apparent distress. Alert and oriented. HEENT: Head is normocephalic, atraumatic NECK: Supple. LUNGS: Clear to auscultation. HEART: RRR, S1, S2 present. Peripheral pulses intact EXTREMITIES: Without any cyanosis. NEUROLOGIC: Normal speech, normal tone PSYCHIATRIC: Normal affect, normal mood. SKIN: No ulcerations DIAGNOSTIC TESTING: Trop negative EKG negative CT abd/pelvis - chronic pancreatitis ASSESSMENT: 1. Pancreatitis PLAN: 1. Presenting symptoms, diagnostic testing and overall problem consistent with pancreatitis. No clear cardiac issues. (negative trop, EKG) and patient able to do strenous activities at home such as shovel snow and ride on an elliptical for 30 minutes w/o problems. No further testing needed. Pls call with questions. CAROLINA AREVALO MD Sep 03, 2018 12:29
[2018-09-03] MEDS: ENOXAPARIN 40 MG/0.4 ML SYRINGE. SQ SCH (12:53)
[2018-09-03] MEDS: CYANOCOBALAMIN (VITAMIN B-12) 1,000 MCG TABLET. PO SCH (12:54)
[2018-09-03] MEDS ORDERED: MAGNESIUM SULFATE 4GM 100 ML IV ONE (14:30)
--- NOTE | 2018-09-03 15:17 | NUR ---
FACULTY CO-SIGN I have reviewed the documentation by Messi Mckeon nursing home director [facility].:
[2018-09-03] MEDS: LORazepam 0.5 MG TABLET PO PRN (18:30)
[2018-09-03] MEDS: ZOLPIDEM 5 MG TABLET. PO PRN (20:16)
[2018-09-04 03:00] VITALS: BP 120/89
[2018-09-04 05:53] LABS: ALBUMIN 3.2 g/dL (3.4-5.0); ALBUMIN/GLOBULIN RATIO 0.9 (1.0-1.7); CALCIUM 8.3 mg/dL (8.5-10.1); CREATININE 0.9 mg/dL (0.7-1.3); GFR 85.5; TOTAL BILIRUBIN 0.8 mg/dL (0.2-1.0); TOTAL PROTEIN 6.9 g/dL (6.4-8.2)
[2018-09-04] MEDS: PANTOPRAZOLE 40 MG TABLET.DR. PO SCH (07:08)
[2018-09-04] MEDS: LIPASE/PROTEAS/AMYLAS 10/32/42 CAPSULE.DR. PO SCH ×2 (07:08→11:39)
[2018-09-04] MEDS: traMADol 50 MG TABLET PO PRN (07:09)
[2018-09-04] MEDS ORDERED: DILT180C2 PO (07:21)
[2018-09-04 07:42] VITALS: BP 148/96
[2018-09-04] MEDS: LOSARTAN POTASSIUM 50 MG TABLET. PO SCH (09:00)
[2018-09-04] MEDS: CYANOCOBALAMIN (VITAMIN B-12) 1,000 MCG TABLET. PO SCH (09:00)
[2018-09-04] MEDS: ENOXAPARIN 40 MG/0.4 ML SYRINGE. SQ SCH (09:01)
--- NOTE | 2018-09-04 10:23 | PDOC ---
PROGRESS NOTES Chief Complaint Chief Complaint Epigastric pain likely secondary to pancreatitis Report of chest pain as per ER physician who requested admission for rule out History of hypertension Obesity with a BMI of 31 History of chronic pancreatitis History of Present Illness History of Present Illness 69-year-old gentleman with past medical history of pancreatitis in the past. He was seen and examined this morning Pt was resting in bed comfortably with NAD He expressed a desire to be discharged home, as his pain is much better controlled He has been able to tolerate food well Discussed with RN Vitals Vitals Vital Signs Date Time Temp Pulse Resp B/P (MAP) Pulse Ox O2 Delivery O2 Flow Rate FiO2 09/04/18 09:00 89 148/96 09/04/18 08:09 16 Room Air 09/04/18 07:42 97.9 95 97.9 Physical Exam General: Alert, Oriented X3, Cooperative, No acute distress Heart: Regular rate, Normal S1, Normal S2 Lungs: Clear Abdomen: Normal bowel sounds, Soft Extremities: No clubbing, No cyanosis, No edema Skin: No rashes, No significant lesion Labs LABS Laboratory Tests Test 09/04/18 04:30 Sodium Level 139 mmol/L (136-145) Potassium Level 4.0 mmol/L (3.5-5.1) Chloride Level 102 mmol/L (98-107) Carbon Dioxide Level 27 mmol/L (21-32) Anion Gap 10 (6-14) Blood Urea Nitrogen 10 mg/dL (8-26) Creatinine 0.9 mg/dL (0.7-1.3) Estimated GFR (Cockcroft-Gault) 85.5 BUN/Creatinine Ratio 11 (6-20) Glucose Level 114 mg/dL (70-99) Calcium Level 8.3 mg/dL (8.5-10.1) Total Bilirubin 0.8 mg/dL (0.2-1.0) Aspartate Amino Transf (AST/SGOT) 47 U/L (15-37) Alanine Aminotransferase (ALT/SGPT) 54 U/L (16-63) Alkaline Phosphatase 107 U/L (46-116) Total Protein 6.9 g/dL (6.4-8.2) Albumin 3.2 g/dL (3.4-5.0) Albumin/Globulin Ratio 0.9 (1.0-1.7) Review of Systems Review of Systems Pt reports some mild epigastric pain, much improved Denies CP, SOB, n/v Assessment and Plan Assessmemt and Plan Problems Medical Problems: (1) Chest pain Status: Acute Assessment Epigastric pain likely secondary to pancreatitis Report of chest pain as per ER physician who requested admission for rule out History of hypertension Obesity with a BMI of 31 History of chronic pancreatitis Plan Cardiology has ruled out cardiac etiology Hopeful to D/C today, as his pain has improved and he feels well Given IVF pain control home meds PT/OT Labs daily lipase D/C home possibly today Comment Review of Relevant I have reviewed the following items annelise (where applicable) has been applied. Labs Laboratory Tests Test 09/03/18 09:30 09/04/18 04:30 Troponin I Quantitative < 0.017 ng/mL (0.000-0.055) Sodium Level 139 mmol/L (136-145) Potassium Level 4.0 mmol/L (3.5-5.1) Chloride Level 102 mmol/L (98-107) Carbon Dioxide Level 27 mmol/L (21-32) Anion Gap 10 (6-14) Blood Urea Nitrogen 10 mg/dL (8-26) Creatinine 0.9 mg/dL (0.7-1.3) Estimated GFR (Cockcroft-Gault) 85.5 BUN/Creatinine Ratio 11 (6-20) Glucose Level 114 mg/dL (70-99) Calcium Level 8.3 mg/dL (8.5-10.1) Total Bilirubin 0.8 mg/dL (0.2-1.0) Aspartate Amino Transf (AST/SGOT) 47 U/L (15-37) Alanine Aminotransferase (ALT/SGPT) 54 U/L (16-63) Alkaline Phosphatase 107 U/L (46-116) Total Protein 6.9 g/dL (6.4-8.2) Albumin 3.2 g/dL (3.4-5.0) Albumin/Globulin Ratio 0.9 (1.0-1.7) Laboratory Tests Test 09/04/18 04:30 Sodium Level 139 mmol/L (136-145) Potassium Level 4.0 mmol/L (3.5-5.1) Chloride Level 102 mmol/L (98-107) Carbon Dioxide Level 27 mmol/L (21-32) Anion Gap 10 (6-14) Blood Urea Nitrogen 10 mg/dL (8-26) Creatinine 0.9 mg/dL (0.7-1.3) Estimated GFR (Cockcroft-Gault) 85.5 BUN/Creatinine Ratio 11 (6-20) Glucose Level 114 mg/dL (70-99) Calcium Level 8.3 mg/dL (8.5-10.1) Total Bilirubin 0.8 mg/dL (0.2-1.0) Aspartate Amino Transf (AST/SGOT) 47 U/L (15-37) Alanine Aminotransferase (ALT/SGPT) 54 U/L (16-63) Alkaline Phosphatase 107 U/L (46-116) Total Protein 6.9 g/dL (6.4-8.2) Albumin 3.2 g/dL (3.4-5.0) Albumin/Globulin Ratio 0.9 (1.0-1.7) Medications Current Medications Aspirin (Children'S Aspirin) 324 mg 1X ONCE PO Last administered on 09/02/18 09:52; Start 09/02/18 at 09:30; Stop 09/02/18 at 09:31; Status DC Sodium Chloride 1,000 ml @ 1,000 mls/hr Q1H IV Last administered on 09/02/18at 09:47; Start 09/02/18 at 09:27; Stop 09/02/18 at 10:26; Status DC Ondansetron HCl (Zofran) 4 mg 1X ONCE IV Last administered on 09/02/18 09:49; Start 09/02/18 at 09:30; Stop 09/02/18 at 09:31; Status DC Morphine Sulfate (Morphine Sulfate) 4 mg 1X ONCE IV Last administered on at 10:06; Start 09/02/18 at 10:00; Stop 09/02/18 at 10:01; Status DC Iohexol (Omnipaque 300 Mg/ml) 75 ml 1X ONCE IV Last administered on 09/02/18at 11:38; Start 09/02/18 at 11:30; Stop 09/02/18 at 11:31; Status DC Info (CONTRAST GIVEN -- Rx MONITORING) 1 each PRN DAILY PRN MC SEE COMMENTS; Start 09/02/18 at 11:45; Stop 09/04/18 at 11:44 Morphine Sulfate (Morphine Sulfate) 4 mg 1X ONCE IV Last administered on 13:09; Start 09/02/18 at 13:00; Stop 09/02/18 at 13:02; Status DC Ondansetron HCl (Zofran) 4 mg PRN Q4HRS PRN IV NAUSEA/VOMITING; Start 09/02/18 at 13:15 Zolpidem Tartrate (Ambien) 5 mg PRN QHS PRN PO INSOMNIA Last administered on 20:16; Start 09/02/18 at 13:15 Acetaminophen (Tylenol) 650 mg PRN Q4HRS PRN PO TEMP OVER 100.4F OR MILD PAIN Last administered on 09/04/18 08:12; Start 09/02/18 at 13:15 Clonidine HCl (Catapres) 0.1 mg PRN Q6HRS PRN PO SBP>160 OR DBP>90; Start at 13:15 Sodium Monofluorophosphate (Fleet Adult) 133 ml PRN DAILY PRN DE CONSTIPATION; Start 09/02/18 at 13:15 Docusate Sodium (Colace) 100 mg PRN BID PRN PO CONSTIPATION; Start 09/02/18 at 13:15 Albuterol/ Ipratropium (Duoneb) 3 ml Q4HRS NEB ; Start 09/02/18 at 16:00; Stop at 17:44; Status DC Guaifenesin (Robitussin) 200 mg PRN Q4HRS PRN PO COUGH; Start 09/02/18 at 13:15 Lorazepam (Ativan) 0.5 mg PRN Q4HRS PRN PO ANXIETY / AGITATION Last administered on 09/03/18 18:30; Start 09/02/18 at 13:15 Enoxaparin Sodium (Lovenox 40mg Syringe) 40 mg DAILY SQ Last administered on 09:01; Start 09/03/18 at 09:00 Cyanocobalamin (Vitamin B-12) 1,000 mcg DAILY PO Last administered on 09:00; Start 09/03/18 at 09:00 Ergocalciferol (Vitamin D2) 50,000 unit WEEKLY PO ; Start 09/09/18 at 09:00 Losartan Potassium (Cozaar) 50 mg DAILY PO Last administered on 3/10/19at 09:00 ; Start 09/03/18 at 09:00 Tramadol HCl (Ultram) 50 mg PRN Q6HRS PRN PO MODERATE-SEVERE PAIN Last administered on 09/04/18at 07:09; Start 09/02/18 at 13:15 Hydralazine HCl (Apresoline) 50 mg TID PO Last administered on 09/03/18at 20:16; Start 09/02/18 at 17:00; Stop 09/04/18 at 08:58; Status DC Amylase/Lipase/ Protease (Zenpep 10,000) 2 cap QIDACHS PO Last administered on 09/04/18at 07:08; Start 09/02/18 at 17:00 Pantoprazole Sodium (Protonix) 40 mg DAILYAC PO Last administered on 09/04/18 07:08; Start 09/03/18 at 07:30 Albuterol/ Ipratropium (Duoneb) 3 ml Q4HRS NEB ; Start 09/02/18 at 16:00; Status UNV Ringer's Solution 1,000 ml @ 100 mls/hr Q10H IV Last administered on 09/03/18at 15:00; Start 09/02/18 at 17:00; Stop 09/04/18 at 09:00; Status DC Albuterol/ Ipratropium (Duoneb) 3 ml Q4HRS PRN NEB SHORTNESS OF BREATH; Start 09/02/18 at 17:45; Status UNV Albuterol Sulfate (Ventolin Neb Soln) 2.5 mg PRN Q4HRS PRN NEB SHORTNESS OF BREATH; Start 09/02/18 at 17:45 Magnesium Sulfate/ Dextrose 100 ml @ 25 mls/hr 1X ONCE IV Last administered on 09/03/18 15:01; Start 09/03/18 at 14:30; Stop 09/03/18 at 18:29; Status DC Diltiazem HCl (Cardizem 24hr Cd) 180 mg DAILY PO Last administered on at 09:00; Start 09/04/18 at 09:00 Active Scripts Active Tramadol Hcl 50 Mg Tablet 1 Tab PO PRN Q6HRS 6 Days Prilosec Otc (Omeprazole Magnesium) 20 Mg Tablet.dr 1 Tab PO DAILY Reported Cardizem Cd (Diltiazem Hcl) 180 Mg Cap.er.24h 1 Cap PO DAILY Losartan Potassium 50 Mg Tablet 50 Mg PO DAILY Vitamin D2 (Ergocalciferol (Vitamin D2)) 50,000 Unit Capsule 1 Cap PO WEEKLY Vitamin B-12 (Cyanocobalamin (Vitamin B-12)) 1,000 Mcg Tablet 1 Tab PO DAILY Harshad Orellana 24,000 Units Capsule (Lipase/Protease/Amylase) 1 Each Capsule. 1 Each PO QID Vitals/I & O Vital Sign - Last 24 Hours 09/03/18 09/03/18 09/03/18 09/03/18 10:30 10:59 14:59 15:00 Temp 97.7 98.2 97.7 98.2 Pulse 77 77 74 Resp 16 20 20 B/P (MAP) 144/96 (112) 144/96 159/100 (119) Pulse Ox 94 97 O2 Delivery Room Air Room Air Room Air 09/03/18 09/03/18 09/03/18 09/03/18 16:57 18:46 19:31 20:16 Temp 98.0 98.0 Pulse 109 109 Resp 16 20 B/P (MAP) 135/87 (103) 135/87 Pulse Ox 95 O2 Delivery Room Air Room Air Room Air 09/03/18 09/04/18 09/04/18 09/04/18 23:13 03:00 07:09 07:42 Temp 98.0 98.0 97.9 98.0 98.0 97.9 Pulse 86 79 100 Resp 18 20 16 20 B/P (MAP) 153/98 (116) 120/89 (99) 148/96 (113) Pulse Ox 96 94 95 O2 Delivery Room Air Room Air Room Air Room Air 09/04/18 09/04/18 09/04/18 09/04/18 08:00 08:09 09:00 09:00 Pulse 100 89 Resp 16 B/P (MAP) 148/96 148/96 O2 Delivery Room Air Room Air Intake and Output 09/03/18 09/03/18 09/04/18 14:59 22:59 06:59 Intake Total 200 ml 500 ml Output Total 600 ml Balance 200 ml -100 ml OMAR REEDER III DO Sep 04, 2018 10:23
[2018-09-04 10:50] VITALS: BP 143/87
--- NOTE | 2018-09-04 14:00 | NUR ---
Discharge instructions reviewed with patient, patient verbalized understanding. Patient to be picked up by taxi.
--- NOTE | 2018-09-04 20:48 | DS ---
DATE OF DISCHARGE: 09/04/2018 ADMISSION DIAGNOSES: Chest pain and pancreatitis. DISCHARGE DIAGNOSIS: Resolving atypical chest pain secondary to pancreatitis. CONSULTS: Cardiology. PROCEDURES: None. HOSPITAL COURSE: The patient is a pleasant middle-aged male, who presented with chest pain. He was admitted. We did a full cardiac workup with consult to Cardiology. His enzymes are negative, but he does have pancreatitis. He has now been eating for the last day or so. I saw him and examined this morning. His heart tones were normal. His lungs were clear. His abdomen was soft, nontender. We plan to discharge with close outpatient followup. DISPOSITION: Home. ACTIVITY: As tolerated. DIET: Low sodium. MEDICATIONS: Please see the MRAD. TOTAL TIME: 34 minutes. OMAR REEDER DO DR: JULIENNE/esa JOB#: [id number] / [id number]
[2018-09-09] MEDS ORDERED: ERGOCALCIFEROL (VITAMIN D2) 50,000 UNIT CAPSULE. PO SCH (09:00)
== END 2018-09-04 14:45 | disposition home or self-care (01) ==
LOC: ER 09:14 → ED HOLD 13:00 → 2 SOUTH 16:23
PROVIDERS: ADMIT Internal Medicine; ATTEND Internal Medicine
DX: R07.89 Other chest pain (principal); I10 Essential (primary) hypertension; K86.1 Other chronic pancreatitis; F41.9 Anxiety disorder, unspecified; Z98.890 Other specified postprocedural states; E66.9 Obesity, unspecified; Z68.31 Body mass index [BMI] 31.0-31.9, adult
CPT/HCPCS: 36415; 71045; 74177; 80053; 83690; 83735; 83880; 84484; 85025; 85379; 85610; 93005; 96361; 96365; 96366; 96372; 96375; 96376; 99284; G0378; J1650; J2270; J2405; J3475; J7030; Q9967; G0379; J7120

== ENCOUNTER 2018-10-26 18:15 | Inpatient (IN) | payer OTHER, SELFPAY ==
[~2018-10-26] VITALS: Ht 175.3 cm; Wt 99.1 kg
[~2018-10-26 18:15] MED LIST changes: +DILT180C2 PO
[2018-10-26] MEDS ORDERED: IV NORMAL SALINE 1000ML BAG 1,000 ML IV SCH (19:07)
[2018-10-26 19:16] LABS: BASO # 0.1 x10^3/uL (0.0-0.2); BASO % 1 % (0-3); EOS # 0.3 x10^3/uL (0.0-0.7); EOS % 4 % (0-3); HEMATOCRIT 42.2 % (39.0-53.0); HEMOGLOBIN 14.2 g/dL (13.0-17.5); LYMPH % 27 % (24-48); MEAN CORPUSCULAR HEMOGLOBIN 30 pg (25-35); MEAN CORPUSCULAR HGB CONC 34 g/dL (31-37); MEAN CORPUSCULAR VOLUME 89 fL (79-100); MONO % 13 % (0-9); NEUT # 4.2 x10^3uL (1.8-7.7); NEUT % 56 % (31-73); PLATELET COUNT 305 x10^3/uL (140-400); RED BLOOD COUNT 4.75 x10^6/uL (4.30-5.70); RED CELL DISTRIBUTION WIDTH 13.3 % (11.5-14.5); WHITE BLOOD COUNT 7.6 x10^3/uL (4.0-11.0)
[2018-10-26 19:27] LABS: CALCIUM 8.7 mg/dL (8.5-10.1); CREATININE 0.9 mg/dL (0.7-1.3); GFR 85.2; POTASSIUM 3.7 mmol/L (3.5-5.1)
[2018-10-26 19:33] LABS: ALBUMIN 3.3 g/dL (3.4-5.0); TOTAL BILIRUBIN 0.3 mg/dL (0.2-1.0); TOTAL PROTEIN 6.6 g/dL (6.4-8.2)
--- NOTE | 2018-10-26 19:44 | RAD ---
CHEST PA LATERAL History: CHEST PAIN, HIGH BLOOD PRESSURE, WEAKNESS. Comparison with 09/02/2018. Heart size not enlarged. No evidence of pneumothorax, pleural effusion or consolidating infiltrate. Right lateral chest wall not completely included. Regional skeleton appears grossly intact. IMPRESSION: No evidence of consolidating infiltrate. Electronically signed by: Tyrone Shah MD (10/26/2018 7:41 PM) [facility]
[2018-10-26] MEDS ORDERED: MORPHINE SULFATE 4 MG/ML VIAL. IV ONE (19:45)
[2018-10-26] MEDS ORDERED: ONDANSETRON ODT 4 MG TAB.RAPDIS. PO ONE (19:45)
[2018-10-26] MEDS ORDERED: IOHEXOL 300 MG/ML 100ML VIAL. IV ONE (20:30)
[2018-10-26 20:52] LABS: BILIRUBIN,URINE NEGATIVE (NEG); CLARITY,URINE CLEAR; COLOR,URINE YELLOW; NITRITE,URINE NEGATIVE (NEG); PH,URINE 7.5; PROTEIN,URINE NEGATIVE (NEG-TRACE); UROBILINOGEN,URINE 0.2 mg/dL (0.2 mg/dL)
--- NOTE | 2018-10-26 20:54 | RAD ---
CT ABD PELV W/ IV CONTRST ONLY Indication: epigastric pain, n/v, hx pancreatitis, [id number] 75ml, prior sent Exposure: One or more of the following individualized dose reduction techniques were utilized for this examination: 1. Automated exposure control 2. Adjustment of the mA and/or kV according to patient size 3. Use of iterative reconstruction technique. Technique: Intravenous contrast was given. No oral contrast per request. The lung bases are clear. No pericardial effusion. Liver and spleen are unremarkable. The pancreas is diffusely calcified comparable to study of 09/02/2018. Pancreatic duct dilatation also appears similar. No adrenal mass. Kidneys demonstrate symmetric enhancement. Lesion at the posterior left kidney is stable in size, measures 60 Hounsfield units could be a hemorrhagic cyst. Smaller low-density lesion of the right kidney too small to characterize appears similar. No hydronephrosis. No calcified gallstone. Aorta nonaneurysmal. Mildly calcified. No significant lymph node enlargement. No significant small bowel distention. No evidence of acute colitis. The appendix is visualized and appears normal. No evidence of ascites or pneumoperitoneum. No evidence of pelvic mass. Urinary bladder appears unremarkable. Degenerative spondylosis is again seen. No aggressive bone destruction. IMPRESSION: 1. Left renal lesion measures greater than a simple cyst. This could represent a hemorrhagic cyst versus other etiology. Nonemergent ultrasound could further evaluate. 2. Chronic pancreatic changes are again seen. 3. No acute findings are identified. Electronically signed by: Tyrone Shah MD (10/26/2018 8:51 PM) [facility]
[2018-10-26 20:56] LABS: BACTERIA,URINE 0 /HPF (0-FEW); RBC,URINE RARE /HPF (0-2); WBC,URINE OCC /HPF (0-4)
--- NOTE | 2018-10-26 21:00 | PHYS DOC ---
Past Medical History Past Medical History: GERD, Hypertension, Pancreatitis Past Surgical History: Tonsillectomy Additional Past Surgical Histo: HERNIA REPAIR Smoking: Cigarettes Alcohol Use: Heavy Drug Use: None Adult General Chief Complaint Chief Complaint: CHEST PAIN HPI HPI Patient is a 63 year old male presents to the ED the chief complaint of epigastric chest pain. Patient states that the pain has been present all day today. Patient states that he has history of bronchitis and he used alcohol today. Patient denies fever, chills, nausea, vomiting, diarrhea, dysuria, shortness of breath. Patient also denies cardiac history. Patient does admit to being an active smoker and using alcohol. Patient was last admitted for cardiac rule out and 2015 when he had a negative echo. Patient was admitted in June 2018 for pancreatitis. Patient states that his lipase is usually not elevated. Review of Systems Review of Systems Patient denies fever, chills, nausea, vomiting, diarrhea, dysuria, shortness of breath. Patient does complain of chest pain and epigastric abdominal pain. Current Medications Current Medications Current Medications Medications (Trade) Dose Ordered Sig/Abimael Start Time Stop Time Status Last Admin Dose Admin Famotidine (Pepcid Vial) 20 mg 1X ONCE 10/26/18 21:30 10/26/18 21:31 DC 10/26/18 21:38 20 MG Iohexol (Omnipaque 300 Mg/ml) 75 ml 1X ONCE 10/26/18 20:30 10/26/18 20:32 DC 10/26/18 20:34 75 ML Morphine Sulfate (Morphine Sulfate) 4 mg 1X ONCE 10/26/18 19:45 10/26/18 19:46 DC 10/26/18 19:45 4 MG Multi-Ingredient Mouthwash/Gargle (Gi Cocktail) 20 ml 1X ONCE 10/26/18 21:30 10/26/18 21:31 DC 10/26/18 21:38 20 ML Ondansetron HCl (Zofran Odt) 4 mg 1X ONCE 10/26/18 19:45 10/26/18 19:46 DC 10/26/18 19:45 4 MG Sodium Chloride 1,000 ml @ 1,000 mls/hr Q1H 10/26/18 19:07 10/26/18 20:06 DC 10/26/18 19:37 1,000 MLS/HR Allergies Allergies Allergies Coded Allergies Type Severity Reaction Last Updated Verified No Known Drug Allergies 12/07/15 No Physical Exam Physical Exam Constitutional: Well developed, well nourished, no acute distress, non-toxic appearance. HENT: Normocephalic, atraumatic, normocaphalic Eyes: PERRL, EOMI Neck: Normal range of motion, no tenderness, supple Cardiovascular:Heart rate regular rhythm, no murmur Resp: Bilateral breath sounds clear to auscultation Abdomen: Epigastric abdominal tenderness Skin: Warm, dry, no erythema, no rash. Back: No tenderness, no CVA tenderness. Extremities: No tenderness, ROM intact, no edema. Neurologic: Alert and oriented X 3, normal motor function, normal sensory function, no focal deficits noted. Psychologic: Affect normal, judgement normal, mood normal. Current Patient Data Vital Signs Vital Signs Date Time Temp Pulse Resp B/P (MAP) Pulse Ox O2 Delivery O2 Flow Rate FiO2 10/26/18 21:56 72 12 157/99 (118) 96 Room Air 10/26/18 18:23 98.3 98.3 Lab Values Laboratory Tests Test 10/26/18 18:47 10/26/18 20:42 White Blood Count 7.6 x10^3/uL (4.0-11.0) Red Blood Count 4.75 x10^6/uL (4.30-5.70) Hemoglobin 14.2 g/dL (13.0-17.5) Hematocrit 42.2 % (39.0-53.0) Mean Corpuscular Volume 89 fL (79-100) Mean Corpuscular Hemoglobin 30 pg (25-35) Mean Corpuscular Hemoglobin Concent 34 g/dL (31-37) Red Cell Distribution Width 13.3 % (11.5-14.5) Platelet Count 305 x10^3/uL (140-400) Neutrophils (%) (Auto) 56 % (31-73) Lymphocytes (%) (Auto) 27 % (24-48) Monocytes (%) (Auto) 13 % (0-9) H Eosinophils (%) (Auto) 4 % (0-3) H Basophils (%) (Auto) 1 % (0-3) Neutrophils # (Auto) 4.2 x10^3uL (1.8-7.7) Lymphocytes # (Auto) 2.0 x10^3/uL (1.0-4.8) Monocytes # (Auto) 1.0 x10^3/uL (0.0-1.1) Eosinophils # (Auto) 0.3 x10^3/uL (0.0-0.7) Basophils # (Auto) 0.1 x10^3/uL (0.0-0.2) Sodium Level 141 mmol/L (136-145) Potassium Level 3.7 mmol/L (3.5-5.1) Chloride Level 104 mmol/L (98-107) Carbon Dioxide Level 27 mmol/L (21-32) Anion Gap 10 (6-14) Blood Urea Nitrogen 14 mg/dL (8-26) Creatinine 0.9 mg/dL (0.7-1.3) Estimated GFR (Cockcroft-Gault) 85.2 BUN/Creatinine Ratio 16 (6-20) Glucose Level 110 mg/dL (70-99) H Calcium Level 8.7 mg/dL (8.5-10.1) Total Bilirubin 0.3 mg/dL (0.2-1.0) Aspartate Amino Transferase (AST) 37 U/L (15-37) Alanine Aminotransferase (ALT) 40 U/L (16-63) Alkaline Phosphatase 70 U/L (46-116) Troponin I Quantitative < 0.017 ng/mL (0.000-0.055) Total Protein 6.6 g/dL (6.4-8.2) Albumin 3.3 g/dL (3.4-5.0) L Albumin/Globulin Ratio 1.0 (1.0-1.7) Lipase 52 U/L (73-393) L Urine Color Yellow Urine Clarity Clear Urine pH 7.5 Urine Specific [place] 1.015 Urine Protein Negative mg/dL (NEG-TRACE) Urine Glucose (UA) Negative mg/dL (NEG) Urine Ketones (Stick) Negative mg/dL (NEG) Urine Blood Negative (NEG) Urine Nitrite Negative (NEG) Urine Bilirubin Negative (NEG) Urine Urobilinogen Dipstick 0.2 mg/dL (0.2 mg/dL) Urine Leukocyte Esterase Negative (NEG) Urine RBC Rare /HPF (0-2) Urine WBC Occ /HPF (0-4) Urine Squamous Epithelial Cells None /LPF Urine Bacteria 0 /HPF (0-FEW) Urine Mucus Slight /LPF Laboratory Tests 10/26/18 18:47 Laboratory Tests 10/26/18 18:47 EKG EKG EKG interpretation: 10/26/2018 HR: 83 Normal sinus rhythm Regular intervals Normal axis Nonspecific ST changes No STEMI Radiology/Procedures Radiology/Procedures CHEST PA LATERAL History: CHEST PAIN, HIGH BLOOD PRESSURE, WEAKNESS. Comparison with 09/02/2018. Heart size not enlarged. No evidence of pneumothorax, pleural effusion or consolidating infiltrate. Right lateral chest wall not completely included. Regional skeleton appears grossly intact. IMPRESSION: No evidence of consolidating infiltrate. Electronically signed by: Tyrone Shah MD (10/26/2018 7:41 PM) [facility] CT ABD PELV W/ IV CONTRST ONLY Indication: epigastric pain, n/v, hx pancreatitis, [id number] 75ml, prior sent Exposure: One or more of the following individualized dose reduction techniques were utilized for this examination: 1. Automated exposure control 2. Adjustment of the mA and/or kV according to patient size 3. Use of iterative reconstruction technique. Technique: Intravenous contrast was given. No oral contrast per request. The lung bases are clear. No pericardial effusion. Liver and spleen are unremarkable. The pancreas is diffusely calcified comparable to study of 09/02/2018. Pancreatic duct dilatation also appears similar. No adrenal mass. Kidneys demonstrate symmetric enhancement. Lesion at the posterior left kidney is stable in size, measures 60 Hounsfield units could be a hemorrhagic cyst. Smaller low-density lesion of the right kidney too small to characterize appears similar. No hydronephrosis. No calcified gallstone. Aorta nonaneurysmal. Mildly calcified. No significant lymph node enlargement. No significant small bowel distention. No evidence of acute colitis. The appendix is visualized and appears normal. No evidence of ascites or pneumoperitoneum. No evidence of pelvic mass. Urinary bladder appears unremarkable. Degenerative spondylosis is again seen. No aggressive bone destruction. IMPRESSION: 1. Left renal lesion measures greater than a simple cyst. This could represent a hemorrhagic cyst versus other etiology. Nonemergent ultrasound could further evaluate. 2. Chronic pancreatic changes are again seen. 3. No acute findings are identified. Electronically signed by: Tyrone Shah MD (10/26/2018 8:51 PM) [facility] Course & Med Decision Making Course & Med Decision Making Pertinent Labs and Imaging studies reviewed. (See chart for details) Ordered labs, EKG, chest x-ray, IV fluids. EKG shows no acute changes. Troponin is negative. Labs are within normal limits. Lipase is within normal limits. CT abdomen and pelvis with IV contrast shows no acute disease. Patient has received IV morphine and Zofran in the ED. Continues to ask for pain medication and so ordered Toradol 30 mg IV. The medications given to the patient. GI cocktail given to the patient. Review patient's chart patient has been admitted for chronic otitis in June 2018. Patient states that he feels just like he did for the chronic pancreatitis admission. I discussed case with Dr. iVrk hospitalist on-call who accepts admission. I will order second troponin to ED. If troponin is negative patient will be admitted for chronic pancreatitis. Dragon Disclaimer Mumtazon Disclaimer This electronic medical record was generated, in whole or in part, using a voice recognition dictation system. Departure Departure Disposition: ADMITTED INPATIENT Admitting Physician: Other Condition: IMPROVED Referrals: NO PCP (PCP) URSULA CROCKETT DO October 26, 2018 21:00
[2018-10-26] MEDS ORDERED: FAMOTIDINE 20 MG/2 ML VIAL IVP ONE (21:30)
[2018-10-26] MEDS ORDERED: LIDO:MAALOX 1:1 20 ML SINGLE DOSE. SWSW ONE (21:30)
[2018-10-26] MEDS ORDERED: KETOROLAC 30 MG/ML VIAL. IV ONE (22:30)
[2018-10-26 23:05] VITALS: BP 145/100
[2018-10-26] MEDS ORDERED: PROCHLORPERAZINE 10 MG/2 ML VIAL. IV ONE (23:15)
[2018-10-26] MEDS ORDERED: HALOPERIDOL LACTATE 5 MG/ML VIAL. IVP PRN (23:45)
[2018-10-26] MEDS ORDERED: diphenhydrAMINE 50 MG/ML VIAL IVP PRN (23:45)
[2018-10-26] MEDS ORDERED: HYDROmorphone 2 MG/ML VIAL IV PRN (23:45)
--- NOTE | 2018-10-26 23:53 | PDOC1 ---
History and Physical Date of Admission Date of Admission DATE: 10/26/18 TIME: 23:40 Identification/Chief Complaint Chief Complaint Chest pain Source Source: Patient History of Present Illness History of Present Illness 62-year-old male w/ PMH ex-smoker, bronchitischronic pancreatitis, HTN admits to me he has been drinking again. Was last seen here June 2018 for alcoholic pancreatitis. His lipase is normal now, but he looks very uncomfortable with epigastric pain and chest pain. Known to GI. Was advised to go out patient EGD in [facility] [place] and daily PPI but he has not been taking PPI but he admits he is taking the Creon. He is scheduled for an EGD sometime, but he came to the ER because of 4 day history of severe epigastric pain some nausea but no emesis. No fevers no sick contacts. No change in BM. Patient was last admitted for cardiac rule out and 2016 when he had a negative echo. Patient was admitted in June 2018 for pancreatitis. Patient states that his lipase is usually not elevated. Past Medical History Cardiovascular: HTN Psych: Anxiety, Addictions Past Surgical History Past Surgical History: Tonsillectomy Family History Family History: Family History Unknown Social History Smoke: 1 pack per day ALCOHOL: heavy Drugs: None Current Problem List Problem List Problems Medical Problems: (1) Pancreatitis Status: Acute Current Medications Current Medications Current Medications Sodium Chloride 1,000 ml @ 1,000 mls/hr Q1H IV Last administered on 10/26/18at 19:37; Start 10/26/18 at 19:07; Stop 10/26/18 at 20:06; Status DC Morphine Sulfate (Morphine Sulfate) 4 mg 1X ONCE IV Last administered on 10/26/18at 19:45; Start 10/26/18 at 19:45; Stop 10/26/18 at 19:46; Status DC Ondansetron HCl (Zofran Odt) 4 mg 1X ONCE PO Last administered on 10/26/18at 19:45; Start 10/26/18 at 19:45; Stop 10/26/18 at 19:46; Status DC Iohexol (Omnipaque 300 Mg/ml) 75 ml 1X ONCE IV Last administered on 10/26/18at 2 0:34; Start 10/26/18 at 20:30; Stop 10/26/18 at 20:32; Status DC Multi-Ingredient Mouthwash/Gargle (Gi Cocktail) 20 ml 1X ONCE SWSW Last administered on 10/26/18at 21:38; Start 10/26/18 at 21:30; Stop 10/26/18 at 21:31; Status DC Famotidine (Pepcid Vial) 20 mg 1X ONCE IVP Last administered on 10/26/18at 21:38; Start 10/26/18 at 21:30; Stop 10/26/18 at 21:31; Status DC Ketorolac Tromethamine (Toradol 30mg Vial) 30 mg 1X ONCE IV Last administered on 10/26/18at 22:27; Start 10/26/18 at 22:30; Stop 10/26/18 at 22:31; Status DC Prochlorperazine Edisylate (Compazine) 10 mg 1X ONCE IV Last administered on 10/26/18at 23:37; Start 10/26/18 at 23:15; Stop 10/26/18 at 23:18; Status DC Active Scripts Active Prilosec Otc (Omeprazole Magnesium) 20 Mg Tablet.dr 1 Tab PO DAILY Reported Cardizem Cd (Diltiazem Hcl) 180 Mg Cap.er.24h 1 Cap PO DAILY Losartan Potassium 50 Mg Tablet 50 Mg PO DAILY Vitamin D2 (Ergocalciferol (Vitamin D2)) 50,000 Unit Capsule 1 Cap PO WEEKLY Vitamin B-12 (Cyanocobalamin (Vitamin B-12)) 1,000 Mcg Tablet 1 Tab PO DAILY Harshad Orellana 24,000 Units Capsule (Lipase/Protease/Amylase) 1 Each Capsule.dr 1 Each PO QID Allergies Allergies: Coded Allergies: No Known Drug Allergies (Unverified , 12/07/15) ROS General: YES: Fatigue, Malaise, Appetite; No: Chills, Night Sweats, Other PSYCHOLOGICAL ROS: YES: Anxiety; No: Behavioral Disorder, Concentration difficultie, Decreased libido, Depression, Disorientation, Hallucinations, Hostility, Irritablity, Memory difficulties, Mood Swings, Obsessive thoughts, Physical abuse, Sexual abuse, Sleep disturbances, Suicidal ideation, Other Eyes: No Blurry vision, No Decreased vision, No Double vision, No Dry eyes, No Excessive tearing, No Eye Pain, No Itchy Eyes, No Loss of vision, No Photophobia, No Scotomata, No Uses contacts, No Uses glasses, No Other HEENT: YES: Heacaches; No: Visual Changes, Hearing change, Nasal congestion, Nasal discharge, Oral lesions, Sinus pain, Sore Throat, Epistaxis, Sneezing, Snoring, Tinnitus, Vertigo, Vocal changes, Other ALLERGY AND IMMUNOLOGY: No: Hives, Insect Bite Sensitivity, Itchy/Watery Eyes, Nasal Congestion, Post Nasal Drip, Seasonal Allergies, Other Hematological and Lymphatic: No: Bleeding Problems, Blood Clots, Blood Transfusions, Brusing, Night Sweats, Pallor, Swollen Lymph Nodes, Other ENDOCRINE: No: Breast Changes, Galactorrhea, Hair Pattern Changes, Hot Flashes, Malaise/lethargy, Mood Swings, Palpitations, Polydipsia/polyuria, Skin Changes, Temperature Intolerance, Unexpected Weight Changes, Other Breast: No New/Changing Breast Lumps, No Nipple changes, No Nipple discharge, No Other Respiratory: YES: Wheezing; No: Cough, Hemoptysis, Orthopnea, Pleuritic Pain, Shortness of breath, SOB with excertion, Sputum Changes, Stridor, Tachypnea, Other Cardiovascular: yes Chest Pain; No Palpitations, No Orthopnea, No Paroxysmal Noc. Dyspnea, No Edema, No Lt Headedness, No Other Gastrointestinal: Yes Nausea, Yes Abdominal Pain; No Vomiting, No Diarrhea, No Constipation, No Melena, No Hematochezia, No Other Genitourinary: No Dysuria, No Frequency, No Incontinence, No Hematuria, No Retention, No Discharge, No Urgency, No Pain, No Flank Pain, No Other, No , No , No , No , No , No , No Musculoskeletal: No Gait Disturbance, No Joint Pain, No Joint Stiffness, No Joint Swelling, No Muscle Pain, No Muscular Weakness, No Pain In:, No Swelling In:, No Other Neurological: No Behavorial Changes, No Bowel/Bladder ControlChng, No Confusion, No Dizziness, No Gait Disturbance, No Headaches, No Impaired Coord/balance, No Memory Loss, No Numbness/Tingling, No Seizures, No Speech Problems, No Tremors, No Visual Changes, No Weakness, No Other Skin: No Dry Skin, No Eczema, No Hair Changes, No Lumps, No Mole Changes, No Mottling, No Nail Changes, No Pruritus, No Rash, No Skin Lesion Changes, No Other, No Acne Physical Exam General: Alert, Oriented X3, Cooperative, No acute distress HEENT: Atraumatic, PERRLA, EOMI, Mucous membr. moist/pink Lungs: Clear to auscultation, Normal air movement Heart: S1S2, RRR Abdomen: Normal bowel sounds, Soft, No hepatosplenomegaly, No masses, Other (Epigastric tenderness) Extremities: No clubbing, No cyanosis, No edema, Normal pulses, No tenderness/swelling Skin: No rashes, No breakdown, No significant lesion Neuro: Normal gait, Normal speech, Strength at 5/5 X4 ext, Normal tone, Sensation intact, Cranial nerves 3-12 NL, Reflexes 2+ Psych/Mental Status: Mental status NL, Mood NL Vitals Vitals Vital Signs Date Time Temp Pulse Resp B/P (MAP) Pulse Ox O2 Delivery O2 Flow Rate FiO2 10/26/18 23:05 97.4 64 16 145/100 (115) 96 Room Air 97.4 Labs Labs Laboratory Tests Test 10/26/18 18:47 10/26/18 20:42 White Blood Count 7.6 x10^3/uL (4.0-11.0) Red Blood Count 4.75 x10^6/uL (4.30-5.70) Hemoglobin 14.2 g/dL (13.0-17.5) Hematocrit 42.2 % (39.0-53.0) Mean Corpuscular Volume 89 fL (79-100) Mean Corpuscular Hemoglobin 30 pg (25-35) Mean Corpuscular Hemoglobin Concent 34 g/dL (31-37) Red Cell Distribution Width 13.3 % (11.5-14.5) Platelet Count 305 x10^3/uL (140-400) Neutrophils (%) (Auto) 56 % (31-73) Lymphocytes (%) (Auto) 27 % (24-48) Monocytes (%) (Auto) 13 % (0-9) Eosinophils (%) (Auto) 4 % (0-3) Basophils (%) (Auto) 1 % (0-3) Neutrophils # (Auto) 4.2 x10^3uL (1.8-7.7) Lymphocytes # (Auto) 2.0 x10^3/uL (1.0-4.8) Monocytes # (Auto) 1.0 x10^3/uL (0.0-1.1) Eosinophils # (Auto) 0.3 x10^3/uL (0.0-0.7) Basophils # (Auto) 0.1 x10^3/uL (0.0-0.2) Sodium Level 141 mmol/L (136-145) Potassium Level 3.7 mmol/L (3.5-5.1) Chloride Level 104 mmol/L (98-107) Carbon Dioxide Level 27 mmol/L (21-32) Anion Gap 10 (6-14) Blood Urea Nitrogen 14 mg/dL (8-26) Creatinine 0.9 mg/dL (0.7-1.3) Estimated GFR (Cockcroft-Gault) 85.2 BUN/Creatinine Ratio 16 (6-20) Glucose Level 110 mg/dL (70-99) Calcium Level 8.7 mg/dL (8.5-10.1) Total Bilirubin 0.3 mg/dL (0.2-1.0) Aspartate Amino Transf (AST/SGOT) 37 U/L (15-37) Alanine Aminotransferase (ALT/SGPT) 40 U/L (16-63) Alkaline Phosphatase 70 U/L (46-116) Troponin I Quantitative < 0.017 ng/mL (0.000-0.055) Total Protein 6.6 g/dL (6.4-8.2) Albumin 3.3 g/dL (3.4-5.0) Albumin/Globulin Ratio 1.0 (1.0-1.7) Lipase 52 U/L (73-393) Urine Color Yellow Urine Clarity Clear Urine pH 7.5 Urine Specific Mobile 1.015 Urine Protein Negative mg/dL (NEG-TRACE) Urine Glucose (UA) Negative mg/dL (NEG) Urine Ketones (Stick) Negative mg/dL (NEG) Urine Blood Negative (NEG) Urine Nitrite Negative (NEG) Urine Bilirubin Negative (NEG) Urine Urobilinogen Dipstick 0.2 mg/dL (0.2 mg/dL) Urine Leukocyte Esterase Negative (NEG) Urine RBC Rare /HPF (0-2) Urine WBC Occ /HPF (0-4) Urine Squamous Epithelial Cells None /LPF Urine Bacteria 0 /HPF (0-FEW) Urine Mucus Slight /LPF Laboratory Tests Test 10/26/18 18:47 10/26/18 20:42 White Blood Count 7.6 x10^3/uL (4.0-11.0) Red Blood Count 4.75 x10^6/uL (4.30-5.70) Hemoglobin 14.2 g/dL (13.0-17.5) Hematocrit 42.2 % (39.0-53.0) Mean Corpuscular Volume 89 fL (79-100) Mean Corpuscular Hemoglobin 30 pg (25-35) Mean Corpuscular Hemoglobin Concent 34 g/dL (31-37) Red Cell Distribution Width 13.3 % (11.5-14.5) Platelet Count 305 x10^3/uL (140-400) Neutrophils (%) (Auto) 56 % (31-73) Lymphocytes (%) (Auto) 27 % (24-48) Monocytes (%) (Auto) 13 % (0-9) Eosinophils (%) (Auto) 4 % (0-3) Basophils (%) (Auto) 1 % (0-3) Neutrophils # (Auto) 4.2 x10^3uL (1.8-7.7) Lymphocytes # (Auto) 2.0 x10^3/uL (1.0-4.8) Monocytes # (Auto) 1.0 x10^3/uL (0.0-1.1) Eosinophils # (Auto) 0.3 x10^3/uL (0.0-0.7) Basophils # (Auto) 0.1 x10^3/uL (0.0-0.2) Sodium Level 141 mmol/L (136-145) Potassium Level 3.7 mmol/L (3.5-5.1) Chloride Level 104 mmol/L (98-107) Carbon Dioxide Level 27 mmol/L (21-32) Anion Gap 10 (6-14) Blood Urea Nitrogen 14 mg/dL (8-26) Creatinine 0.9 mg/dL (0.7-1.3) Estimated GFR (Cockcroft-Gault) 85.2 BUN/Creatinine Ratio 16 (6-20) Glucose Level 110 mg/dL (70-99) Calcium Level 8.7 mg/dL (8.5-10.1) Total Bilirubin 0.3 mg/dL (0.2-1.0) Aspartate Amino Transf (AST/SGOT) 37 U/L (15-37) Alanine Aminotransferase (ALT/SGPT) 40 U/L (16-63) Alkaline Phosphatase 70 U/L (46-116) Troponin I Quantitative < 0.017 ng/mL (0.000-0.055) Total Protein 6.6 g/dL (6.4-8.2) Albumin 3.3 g/dL (3.4-5.0) Albumin/Globulin Ratio 1.0 (1.0-1.7) Lipase 52 U/L (73-393) Urine Color Yellow Urine Clarity Clear Urine pH 7.5 Urine Specific Mobile 1.015 Urine Protein Negative mg/dL (NEG-TRACE) Urine Glucose (UA) Negative mg/dL (NEG) Urine Ketones (Stick) Negative mg/dL (NEG) Urine Blood Negative (NEG) Urine Nitrite Negative (NEG) Urine Bilirubin Negative (NEG) Urine Urobilinogen Dipstick 0.2 mg/dL (0.2 mg/dL) Urine Leukocyte Esterase Negative (NEG) Urine RBC Rare /HPF (0-2) Urine WBC Occ /HPF (0-4) Urine Squamous Epithelial Cells None /LPF Urine Bacteria 0 /HPF (0-FEW) Urine Mucus Slight /LPF Images Images CT abdomen - 1. Left renal lesion measures greater than a simple cyst. This could represent a hemorrhagic cyst versus other etiology. Nonemergent ultrasound could further evaluate. 2. Chronic pancreatic changes are again seen. 3. No acute findings are identified. VTE Prophylaxis Ordered VTE Prophylaxis Devices: Contraindicated VTE Pharmacological Prophylaxi: Yes Assessment/Plan Assessment/Plan A/P: Abdominal pain - acute on Chronic Pancreatitis - will keep NPO Epigastric pain, need to rule out perforation or any acute abdomen but he lacks signs of acute abdomen on my PE, difftls include PUD, gastritis or NUD - will consult GI Heavy alcohol drinking - CIWA scale History of chronic pancreatitis-lipase is normal Accel HTN sec to pain POA - will keep on his meds Chest pain - seen by cardiology very recently, negative echo, will trend trops Obesity BMI 32 - counseled on weight loss Headache - will give toradol, compazine Ex smoker - counseled Chronic bronchitis - nebs FEN - NPO PPX - Lovenox, PPI FULL CODE Dispo - inpatient for acute on chronic pancreatitis, chest pain MASTER MILLS MD October 26, 2018 23:53
[2018-10-27 03:02] VITALS: BP 135/91
[2018-10-27] MEDS: PANTOPRAZOLE 40 MG TABLET.DR. PO SCH (06:35)
--- NOTE | 2018-10-27 06:54 | EKG ---
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
[2018-10-27 07:00] VITALS: BP 126/96
[2018-10-27] MEDS: IPRATRPIUM/ALBUTEROL 0.5/2.5MG 3 ML NEBU. NEB SCH ×2 (07:00→11:19)
[2018-10-27] MEDS: HYDROcodone/APAP 5/325MG 1 TAB TABLET PO PRN ×4 (07:34→23:04)
[2018-10-27] MEDS: CYANOCOBALAMIN (VITAMIN B-12) 1,000 MCG TABLET. PO SCH (08:45)
[2018-10-27] MEDS: MULTIVIT INFUSN,ADULT 4,VIT K 10 ML, THIAMINE INJ 100 MG, FOLIC ACID INJ 1 MG in IV NOR... IV SCH (08:45)
[2018-10-27] MEDS: LOSARTAN POTASSIUM 50 MG TABLET. PO SCH (08:46)
[2018-10-27] MEDS: ENOXAPARIN 40 MG/0.4 ML SYRINGE. SQ SCH (08:47)
[2018-10-27] MEDS: LIPASE/PROTEAS/AMYLAS 10/32/42 CAPSULE.DR. PO SCH ×4 (08:50→20:45)
--- NOTE | 2018-10-27 10:01 | PDOC ---
PROGRESS NOTES Chief Complaint Chief Complaint but he came to the ER because of 4 day history of severe epigastric pain some nausea but no emesis. No fevers no sick contacts. No change in BM. Patient was last admitted for cardiac rule out and 2016 when he had a negative echo. Patient was admitted in June 2018 for pancreatitis. Patient states that his lipase is usually not elevated. History of Present Illness History of Present Illness VTE Prophylaxis Ordered VTE Prophylaxis Devices: Contraindicated VTE Pharmacological Prophylaxi: Yes Assessment/Plan Assessment/Plan A/P: Abdominal pain - acute on Chronic Pancreatitis - will keep NPO Epigastric pain, need to rule out perforation or any acute abdomen but he lacks signs of acute abdomen on my PE, difftls include PUD, gastritis or NUD - GI following Heavy alcohol drinking - CIWA scale History of chronic pancreatitis-lipase is normal Accel HTN sec to pain POA - will keep on his meds Chest pain - seen by cardiology very recently, negative echo, will trend trops Obesity BMI 32 - counseled on weight loss Headache - cont toradol, compazine Ex smoker - counseled Chronic bronchitis - nebs Left renal lesion measures greater than a simple cyst. This could represent a hemorrhagic cyst versus other etiology. Nonemergent ultrasound could further evaluate. 2. Chronic pancreatic changes FEN - NPO PPX - Lovenox, PPI FULL CODE Dispo - inpatient for acute on chronic pancreatitis, chest pain 43 min pt exam, chart review, > 50% of time spent with exam, chart review, pt care coordination Vitals Vitals Vital Signs Date Time Temp Pulse Resp B/P (MAP) Pulse Ox O2 Delivery O2 Flow Rate FiO2 10/27/18 08:46 76 126/96 10/27/18 08:34 18 10/27/18 07:34 98 Room Air 10/27/18 07:00 98.6 98.6 Physical Exam General: Alert, Oriented X3, Cooperative, No acute distress Lungs: Clear Abdomen: Normal bowel sounds, Soft, No hepatosplenomegaly, No masses, Other (Epigastric tenderness) Extremities: No clubbing, No cyanosis, No edema, Normal pulses, No tenderness/swelling Skin: No rashes, No breakdown, No significant lesion Labs LABS CT ABD PELV W/ IV CONTRST ONLY Indication: epigastric pain, n/v, hx pancreatitis, [id number] 75ml, prior sent Exposure: One or more of the following individualized dose reduction techniques were utilized for this examination: 1. Automated exposure control 2. Adjustment of the mA and/or kV according to patient size 3. Use of iterative reconstruction technique. Technique: Intravenous contrast was given. No oral contrast per request. The lung bases are clear. No pericardial effusion. Liver and spleen are unremarkable. The pancreas is diffusely calcified comparable to study of 09/02/2018. Pancreatic duct dilatation also appears similar. No adrenal mass. Kidneys demonstrate symmetric enhancement. Lesion at the posterior left kidney is stable in size, measures 60 Hounsfield units could be a hemorrhagic cyst. Smaller low-density lesion of the right kidney too small to characterize appears similar. No hydronephrosis. No calcified gallstone. Aorta nonaneurysmal. Mildly calcified. No significant lymph node enlargement. No significant small bowel distention. No evidence of acute colitis. The appendix is visualized and appears normal. No evidence of ascites or pneumoperitoneum. No evidence of pelvic mass. Urinary bladder appears unremarkable. Degenerative spondylosis is again seen. No aggressive bone destruction. IMPRESSION: 1. Left renal lesion measures greater than a simple cyst. This could represent a hemorrhagic cyst versus other etiology. Nonemergent ultrasound could further evaluate. 2. Chronic pancreatic changes are again seen. 3. No acute findings are identified. Electronically signed by: Tyrone Shah MD (10/26/2018 8:51 PM) [facility] DICTATED and SIGNED BY: TYRONE SHAH MD DATE: 10/26/182050 Laboratory Tests Test 10/26/18 18:47 10/26/18 20:42 10/27/18 01:45 10/27/18 07:35 White Blood Count 7.6 x10^3/uL (4.0-11.0) Red Blood Count 4.75 x10^6/uL (4.30-5.70) Hemoglobin 14.2 g/dL (13.0-17.5) Hematocrit 42.2 % (39.0-53.0) Mean Corpuscular Volume 89 fL (79-100) Mean Corpuscular Hemoglobin 30 pg (25-35) Mean Corpuscular Hemoglobin Concent 34 g/dL (31-37) Red Cell Distribution Width 13.3 % (11.5-14.5) Platelet Count 305 x10^3/uL (140-400) Neutrophils (%) (Auto) 56 % (31-73) Lymphocytes (%) (Auto) 27 % (24-48) Monocytes (%) (Auto) 13 % (0-9) Eosinophils (%) (Auto) 4 % (0-3) Basophils (%) (Auto) 1 % (0-3) Neutrophils # (Auto) 4.2 x10^3uL (1.8-7.7) Lymphocytes # (Auto) 2.0 x10^3/uL (1.0-4.8) Monocytes # (Auto) 1.0 x10^3/uL (0.0-1.1) Eosinophils # (Auto) 0.3 x10^3/uL (0.0-0.7) Basophils # (Auto) 0.1 x10^3/uL (0.0-0.2) Sodium Level 141 mmol/L (136-145) Potassium Level 3.7 mmol/L (3.5-5.1) Chloride Level 104 mmol/L (98-107) Carbon Dioxide Level 27 mmol/L (21-32) Anion Gap 10 (6-14) Blood Urea Nitrogen 14 mg/dL (8-26) Creatinine 0.9 mg/dL (0.7-1.3) Estimated GFR (Cockcroft-Gault) 85.2 BUN/Creatinine Ratio 16 (6-20) Glucose Level 110 mg/dL (70-99) Calcium Level 8.7 mg/dL (8.5-10.1) Total Bilirubin 0.3 mg/dL (0.2-1.0) Aspartate Amino Transf (AST/SGOT) 37 U/L (15-37) Alanine Aminotransferase (ALT/SGPT) 40 U/L (16-63) Alkaline Phosphatase 70 U/L (46-116) Troponin I Quantitative < 0.017 ng/mL (0.000-0.055) 0.019 ng/mL (0.000-0.055) < 0.017 ng/mL (0.000-0.055) Total Protein 6.6 g/dL (6.4-8.2) Albumin 3.3 g/dL (3.4-5.0) Albumin/Globulin Ratio 1.0 (1.0-1.7) Lipase 52 U/L (73-393) Urine Color Yellow Urine Clarity Clear Urine pH 7.5 Urine Specific [place] 1.015 Urine Protein Negative mg/dL (NEG-TRACE) Urine Glucose (UA) Negative mg/dL (NEG) Urine Ketones (Stick) Negative mg/dL (NEG) Urine Blood Negative (NEG) Urine Nitrite Negative (NEG) Urine Bilirubin Negative (NEG) Urine Urobilinogen Dipstick 0.2 mg/dL (0.2 mg/dL) Urine Leukocyte Esterase Negative (NEG) Urine RBC Rare /HPF (0-2) Urine WBC Occ /HPF (0-4) Urine Squamous Epithelial Cells None /LPF Urine Bacteria 0 /HPF (0-FEW) Urine Mucus Slight /LPF Assessment and Plan Assessmemt and Plan Problems Medical Problems: (1) Pancreatitis Status: Acute Comment Review of Relevant I have reviewed the following items annelise (where applicable) has been applied. Labs Laboratory Tests Test 10/26/18 18:47 10/26/18 20:42 10/27/18 01:45 10/27/18 07:35 White Blood Count 7.6 x10^3/uL (4.0-11.0) Red Blood Count 4.75 x10^6/uL (4.30-5.70) Hemoglobin 14.2 g/dL (13.0-17.5) Hematocrit 42.2 % (39.0-53.0) Mean Corpuscular Volume 89 fL (79-100) Mean Corpuscular Hemoglobin 30 pg (25-35) Mean Corpuscular Hemoglobin Concent 34 g/dL (31-37) Red Cell Distribution Width 13.3 % (11.5-14.5) Platelet Count 305 x10^3/uL (140-400) Neutrophils (%) (Auto) 56 % (31-73) Lymphocytes (%) (Auto) 27 % (24-48) Monocytes (%) (Auto) 13 % (0-9) Eosinophils (%) (Auto) 4 % (0-3) Basophils (%) (Auto) 1 % (0-3) Neutrophils # (Auto) 4.2 x10^3uL (1.8-7.7) Lymphocytes # (Auto) 2.0 x10^3/uL (1.0-4.8) Monocytes # (Auto) 1.0 x10^3/uL (0.0-1.1) Eosinophils # (Auto) 0.3 x10^3/uL (0.0-0.7) Basophils # (Auto) 0.1 x10^3/uL (0.0-0.2) Sodium Level 141 mmol/L (136-145) Potassium Level 3.7 mmol/L (3.5-5.1) Chloride Level 104 mmol/L (98-107) Carbon Dioxide Level 27 mmol/L (21-32) Anion Gap 10 (6-14) Blood Urea Nitrogen 14 mg/dL (8-26) Creatinine 0.9 mg/dL (0.7-1.3) Estimated GFR (Cockcroft-Gault) 85.2 BUN/Creatinine Ratio 16 (6-20) Glucose Level 110 mg/dL (70-99) Calcium Level 8.7 mg/dL (8.5-10.1) Total Bilirubin 0.3 mg/dL (0.2-1.0) Aspartate Amino Transf (AST/SGOT) 37 U/L (15-37) Alanine Aminotransferase (ALT/SGPT) 40 U/L (16-63) Alkaline Phosphatase 70 U/L (46-116) Troponin I Quantitative < 0.017 ng/mL (0.000-0.055) 0.019 ng/mL (0.000-0.055) < 0.017 ng/mL (0.000-0.055) Total Protein 6.6 g/dL (6.4-8.2) Albumin 3.3 g/dL (3.4-5.0) Albumin/Globulin Ratio 1.0 (1.0-1.7) Lipase 52 U/L (73-393) Urine Color Yellow Urine Clarity Clear Urine pH 7.5 Urine Specific [place] 1.015 Urine Protein Negative mg/dL (NEG-TRACE) Urine Glucose (UA) Negative mg/dL (NEG) Urine Ketones (Stick) Negative mg/dL (NEG) Urine Blood Negative (NEG) Urine Nitrite Negative (NEG) Urine Bilirubin Negative (NEG) Urine Urobilinogen Dipstick 0.2 mg/dL (0.2 mg/dL) Urine Leukocyte Esterase Negative (NEG) Urine RBC Rare /HPF (0-2) Urine WBC Occ /HPF (0-4) Urine Squamous Epithelial Cells None /LPF Urine Bacteria 0 /HPF (0-FEW) Urine Mucus Slight /LPF Laboratory Tests Test 10/26/18 18:47 10/26/18 20:42 10/27/18 01:45 10/27/18 07:35 White Blood Count 7.6 x10^3/uL (4.0-11.0) Red Blood Count 4.75 x10^6/uL (4.30-5.70) Hemoglobin 14.2 g/dL (13.0-17.5) Hematocrit 42.2 % (39.0-53.0) Mean Corpuscular Volume 89 fL (79-100) Mean Corpuscular Hemoglobin 30 pg (25-35) Mean Corpuscular Hemoglobin Concent 34 g/dL (31-37) Red Cell Distribution Width 13.3 % (11.5-14.5) Platelet Count 305 x10^3/uL (140-400) Neutrophils (%) (Auto) 56 % (31-73) Lymphocytes (%) (Auto) 27 % (24-48) Monocytes (%) (Auto) 13 % (0-9) Eosinophils (%) (Auto) 4 % (0-3) Basophils (%) (Auto) 1 % (0-3) Neutrophils # (Auto) 4.2 x10^3uL (1.8-7.7) Lymphocytes # (Auto) 2.0 x10^3/uL (1.0-4.8) Monocytes # (Auto) 1.0 x10^3/uL (0.0-1.1) Eosinophils # (Auto) 0.3 x10^3/uL (0.0-0.7) Basophils # (Auto) 0.1 x10^3/uL (0.0-0.2) Sodium Level 141 mmol/L (136-145) Potassium Level 3.7 mmol/L (3.5-5.1) Chloride Level 104 mmol/L (98-107) Carbon Dioxide Level 27 mmol/L (21-32) Anion Gap 10 (6-14) Blood Urea Nitrogen 14 mg/dL (8-26) Creatinine 0.9 mg/dL (0.7-1.3) Estimated GFR (Cockcroft-Gault) 85.2 BUN/Creatinine Ratio 16 (6-20) Glucose Level 110 mg/dL (70-99) Calcium Level 8.7 mg/dL (8.5-10.1) Total Bilirubin 0.3 mg/dL (0.2-1.0) Aspartate Amino Transf (AST/SGOT) 37 U/L (15-37) Alanine Aminotransferase (ALT/SGPT) 40 U/L (16-63) Alkaline Phosphatase 70 U/L (46-116) Troponin I Quantitative < 0.017 ng/mL (0.000-0.055) 0.019 ng/mL (0.000-0.055) < 0.017 ng/mL (0.000-0.055) Total Protein 6.6 g/dL (6.4-8.2) Albumin 3.3 g/dL (3.4-5.0) Albumin/Globulin Ratio 1.0 (1.0-1.7) Lipase 52 U/L (73-393) Urine Color Yellow Urine Clarity Clear Urine pH 7.5 Urine Specific [place] 1.015 Urine Protein Negative mg/dL (NEG-TRACE) Urine Glucose (UA) Negative mg/dL (NEG) Urine Ketones (Stick) Negative mg/dL (NEG) Urine Blood Negative (NEG) Urine Nitrite Negative (NEG) Urine Bilirubin Negative (NEG) Urine Urobilinogen Dipstick 0.2 mg/dL (0.2 mg/dL) Urine Leukocyte Esterase Negative (NEG) Urine RBC Rare /HPF (0-2) Urine WBC Occ /HPF (0-4) Urine Squamous Epithelial Cells None /LPF Urine Bacteria 0 /HPF (0-FEW) Urine Mucus Slight /LPF Medications Current Medications Sodium Chloride 1,000 ml @ 1,000 mls/hr Q1H IV Last administered on 10/26/18at 19:37; Start 10/26/18 at 19:07; Stop 10/26/18 at 20:06; Status DC Morphine Sulfate (Morphine Sulfate) 4 mg 1X ONCE IV Last administered on 10/26/18at 19:45; Start 10/26/18 at 19:45; Stop 10/26/18 at 19:46; Status DC Ondansetron HCl (Zofran Odt) 4 mg 1X ONCE PO Last administered on 10/26/18at 19:45; Start 10/26/18 at 19:45; Stop 10/26/18 at 19:46; Status DC Iohexol (Omnipaque 300 Mg/ml) 75 ml 1X ONCE IV Last administered on 10/26/18at 20:34; Start 10/26/18 at 20:30; Stop 10/26/18 at 20:32; Status DC Multi-Ingredient Mouthwash/Gargle (Gi Cocktail) 20 ml 1X ONCE SWSW Last administered on 10/26/18at 21:38; Start 10/26/18 at 21:30; Stop 10/26/18 at 21:31; Status DC Famotidine (Pepcid Vial) 20 mg 1X ONCE IVP Last administered on 10/26/18at 21:38; Start 10/26/18 at 21:30; Stop 10/26/18 at 21:31; Status DC Ketorolac Tromethamine (Toradol 30mg Vial) 30 mg 1X ONCE IV Last administered on 10/26/18at 22:27; Start 10/26/18 at 22:30; Stop 10/26/18 at 22:31; Status DC Prochlorperazine Edisylate (Compazine) 10 mg 1X ONCE IV Last administered on 10/26/18at 23:37; Start 10/26/18 at 23:15; Stop 10/26/18 at 23:18; Status DC Cyanocobalamin (Vitamin B-12) 1,000 mcg DAILY PO Last administered on 10/27/18at 08:45; Start 10/27/18 at 09:00 Ergocalciferol (Vitamin D2) 50,000 unit WEEKLY PO ; Start 11/02/18 at 09:00 Losartan Potassium (Cozaar) 50 mg DAILY PO Last administered on 10/27/18at 08:46; Start 10/27/18 at 09:00 Diltiazem HCl (Cardizem 24hr Cd) 180 mg DAILY PO Last administered on 10/27/18at 08:46; Start 10/27/18 at 09:00 Amylase/Lipase/ Protease (Zenpep 10,000) 2 cap QID PO ; Start 10/27/18 at 09:00 Pantoprazole Sodium (Protonix) 40 mg DAILYAC PO Last administered on 10/27/18at 06:35; Start 10/27/18 at 07:30 Multivitamins 10 ml/Thiamine HCl 100 mg/Folic Acid 1 mg/Sodium Chloride 1,011.2 ml @ 100 mls/ hr DAILY IV Last administered on 10/27/18at 08:45; Start 10/27/18 at 09:00; Stop 10/31/18 at 19:07 Lorazepam (Ativan) 2 mg PRN Q1HR PRN IV For CIWA 8-14; Start 10/26/18 at 23:45 Haloperidol Lactate (Haldol Inj) 5 mg PRN Q4HRS PRN IVP Hallucinatns,Confusn,Delirium; Start 10/26/18 at 23:45 Diphenhydramine HCl (Benadryl) 25 mg PRN Q15MIN PRN IVP EPS symptoms 2'Haldol admin; Start 10/26/18 at 23:45 Acetaminophen/ Hydrocodone Bitart (Lortab 5/325) 1 tab PRN Q4HRS PRN PO PAIN Last administered on 10/27/18at 07:34; Start 10/26/18 at 23:45 Hydromorphone HCl (Dilaudid) 1 mg PRN Q4HRS PRN IV PAIN Last administered on 10/27/18at 00:32; Start 10/26/18 at 23:45 Enoxaparin Sodium (Lovenox 40mg Syringe) 40 mg Q24H SQ Last administered on 10/27/18at 08:47; Start 10/27/18 at 09:00 Albuterol/ Ipratropium (Duoneb) 3 ml RTQID NEB Last administered on 10/27/18at 07:00; Start 10/27/18 at 08:00 Active Scripts Active Prilosec Otc (Omeprazole Magnesium) 20 Mg Tablet. 1 Tab PO DAILY Reported Cardizem Cd (Diltiazem Hcl) 180 Mg Cap.er.24h 1 Cap PO DAILY Losartan Potassium 50 Mg Tablet 50 Mg PO DAILY Vitamin D2 (Ergocalciferol (Vitamin D2)) 50,000 Unit Capsule 1 Cap PO WEEKLY Vitamin B-12 (Cyanocobalamin (Vitamin B-12)) 1,000 Mcg Tablet 1 Tab PO DAILY Harshad Orellana 24,000 Units Capsule (Lipase/Protease/Amylase) 1 Each Capsule. 1 Each PO QID Vitals/I & O Vital Sign - Last 24 Hours 10/26/18 10/26/18 10/26/18 10/26/18 18:23 18:59 19:29 19:45 Temp 98.3 98.3 Pulse 85 74 74 Resp 20 16 30 21 B/P (MAP) 162/100 (120) 157/104 (121) 156/96 (116) Pulse Ox 96 95 96 96 O2 Delivery Room Air Room Air Room Air Room Air 10/26/18 10/26/18 10/26/18 10/26/18 19:59 20:57 21:26 21:56 Pulse 72 74 72 72 Resp 12 15 12 12 B/P (MAP) 162/98 (119) 160/98 (118) 154/95 (114) 157/99 (118) Pulse Ox 95 96 95 96 O2 Delivery Room Air Room Air Room Air Room Air 10/26/18 10/26/18 10/27/18 10/27/18 22:55 23:05 00:32 01:02 Temp 97.4 97.4 Pulse 64 Resp 16 18 18 B/P (MAP) 145/100 (115) Pulse Ox 96 96 96 O2 Delivery Room Air Room Air Room Air Room Air 10/27/18 10/27/18 10/27/18 10/27/18 03:02 06:54 07:00 07:34 Temp 97.7 98.6 97.7 98.6 Pulse 59 76 Resp 17 18 20 B/P (MAP) 135/91 (106) 126/96 (106) Pulse Ox 98 98 95 98 O2 Delivery Room Air Room Air Room Air Room Air 10/27/18 10/27/18 10/27/18 08:34 08:46 08:46 Pulse 76 76 Resp 18 B/P (MAP) 126/96 126/96 Intake and Output 10/26/18 10/26/18 10/27/18 14:59 22:59 06:59 Intake Total 1000 ml 0 ml Output Total 300 ml Balance 1000 ml -300 ml LISA MCGUIRE MD October 27, 2018 10:00
[2018-10-27 11:04] VITALS: BP 134/88
--- NOTE | 2018-10-27 14:12 | PDOC2 ---
GI CONSULT Reason For Consult: Chronic pancreatitis, epigastric and chest pain HPI: HPI: 63 y/o male who we have seen in the past. Admitted again with epigastric and chest pain similar to past pancreatitis. No n/v, diarrhea, constipation, bleeding, or weight loss. Pain improved, asking to eat. H/o alcoholism w/ periods of sobriety and relapses. 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 No previous EGD or colonoscopy - has reported several times these are scheduled w/ [facility] but have never been performed. GB sludge and fatty liver on past imaging. No routine NSAID use. PMH: PMH: alcohol abuse, chronic pancreatitis, umbilical hernia repair, tonsillectomy FH: Family History: No pertinent hx Social History: Smoke: 1 pack per day ALCOHOL: heavy Drugs: None ROS: GEN: Denies fevers, chills, sweats HEENT: Denies blurred vision, sore throat CV: +chest pain RESP: Denies shortness of air, cough GI: Per HPI : Denies hematuria, dysuria ENDO: Denies weight changes NEURO: Denies confusion, dizziness MSK: Denies weakness, joint pain/swelling SKIN: Denies jaundice, pruritus Vitals: Vitals: Vital Signs Date Time Temp Pulse Resp B/P (MAP) Pulse Ox O2 Delivery O2 Flow Rate FiO2 10/27/18 11:04 98.2 60 14 134/88 (103) 96 Room Air 98.2 Labs: Labs: Laboratory Tests Test 10/26/18 18:47 10/26/18 20:42 10/27/18 01:45 10/27/18 07:35 White Blood Count 7.6 x10^3/uL (4.0-11.0) Red Blood Count 4.75 x10^6/uL (4.30-5.70) Hemoglobin 14.2 g/dL (13.0-17.5) Hematocrit 42.2 % (39.0-53.0) Mean Corpuscular Volume 89 fL (79-100) Mean Corpuscular Hemoglobin 30 pg (25-35) Mean Corpuscular Hemoglobin Concent 34 g/dL (31-37) Red Cell Distribution Width 13.3 % (11.5-14.5) Platelet Count 305 x10^3/uL (140-400) Neutrophils (%) (Auto) 56 % (31-73) Lymphocytes (%) (Auto) 27 % (24-48) Monocytes (%) (Auto) 13 % (0-9) Eosinophils (%) (Auto) 4 % (0-3) Basophils (%) (Auto) 1 % (0-3) Neutrophils # (Auto) 4.2 x10^3uL (1.8-7.7) Lymphocytes # (Auto) 2.0 x10^3/uL (1.0-4.8) Monocytes # (Auto) 1.0 x10^3/uL (0.0-1.1) Eosinophils # (Auto) 0.3 x10^3/uL (0.0-0.7) Basophils # (Auto) 0.1 x10^3/uL (0.0-0.2) Sodium Level 141 mmol/L (136-145) Potassium Level 3.7 mmol/L (3.5-5.1) Chloride Level 104 mmol/L (98-107) Carbon Dioxide Level 27 mmol/L (21-32) Anion Gap 10 (6-14) Blood Urea Nitrogen 14 mg/dL (8-26) Creatinine 0.9 mg/dL (0.7-1.3) Estimated GFR (Cockcroft-Gault) 85.2 BUN/Creatinine Ratio 16 (6-20) Glucose Level 110 mg/dL (70-99) Calcium Level 8.7 mg/dL (8.5-10.1) Total Bilirubin 0.3 mg/dL (0.2-1.0) Aspartate Amino Transf (AST/SGOT) 37 U/L (15-37) Alanine Aminotransferase (ALT/SGPT) 40 U/L (16-63) Alkaline Phosphatase 70 U/L (46-116) Troponin I Quantitative < 0.017 ng/mL (0.000-0.055) 0.019 ng/mL (0.000-0.055) < 0.017 ng/mL (0.000-0.055) Total Protein 6.6 g/dL (6.4-8.2) Albumin 3.3 g/dL (3.4-5.0) Albumin/Globulin Ratio 1.0 (1.0-1.7) Lipase 52 U/L (73-393) Urine Color Yellow Urine Clarity Clear Urine pH 7.5 Urine Specific [place] 1.015 Urine Protein Negative mg/dL (NEG-TRACE) Urine Glucose (UA) Negative mg/dL (NEG) Urine Ketones (Stick) Negative mg/dL (NEG) Urine Blood Negative (NEG) Urine Nitrite Negative (NEG) Urine Bilirubin Negative (NEG) Urine Urobilinogen Dipstick 0.2 mg/dL (0.2 mg/dL) Urine Leukocyte Esterase Negative (NEG) Urine RBC Rare /HPF (0-2) Urine WBC Occ /HPF (0-4) Urine Squamous Epithelial Cells None /LPF Urine Bacteria 0 /HPF (0-FEW) Urine Mucus Slight /LPF Allergies: Coded Allergies: No Known Drug Allergies (Unverified , 12/07/15) Medications: Current Medications Medications (Trade) Dose Ordered Sig/Abimael Route PRN Reason Start Time Stop Time Status Last Admin Dose Admin Sodium Chloride 1,000 ml @ 1,000 mls/hr Q1H IV 10/26/18 19:07 10/26/18 20:06 DC 10/26/18 19:37 Morphine Sulfate (Morphine Sulfate) 4 mg 1X ONCE IV 10/26/18 19:45 10/26/18 19:46 DC 10/26/18 19:45 Ondansetron HCl (Zofran Odt) 4 mg 1X ONCE PO 10/26/18 19:45 10/26/18 19:46 DC 10/26/18 19:45 Iohexol (Omnipaque 300 Mg/ml) 75 ml 1X ONCE IV 10/26/18 20:30 10/26/18 20:32 DC 10/26/18 20:34 Multi-Ingredient Mouthwash/Gargle (Gi Cocktail) 20 ml 1X ONCE SWSW 10/26/18 21:30 10/26/18 21:31 DC 10/26/18 21:38 Famotidine (Pepcid Vial) 20 mg 1X ONCE IVP 10/26/18 21:30 10/26/18 21:31 DC 10/26/18 21:38 Ketorolac Tromethamine (Toradol 30mg Vial) 30 mg 1X ONCE IV 10/26/18 22:30 10/26/18 22:31 DC 10/26/18 22:27 Prochlorperazine Edisylate (Compazine) 10 mg 1X ONCE IV 10/26/18 23:15 10/26/18 23:18 DC 10/26/18 23:37 Cyanocobalamin (Vitamin B-12) 1,000 mcg DAILY PO 10/27/18 09:00 10/27/18 08:45 Losartan Potassium (Cozaar) 50 mg DAILY PO 10/27/18 09:00 10/27/18 08:46 Diltiazem HCl (Cardizem 24hr Cd) 180 mg DAILY PO 10/27/18 09:00 10/27/18 08:46 Pantoprazole Sodium (Protonix) 40 mg DAILYAC PO 10/27/18 07:30 10/27/18 06:35 Multivitamins 10 ml/Thiamine HCl 100 mg/Folic Acid 1 mg/Sodium Chloride 1,011.2 ml @ 100 mls/ hr DAILY IV 10/27/18 09:00 10/31/18 19:07 10/27/18 08:45 Acetaminophen/ Hydrocodone Bitart (Lortab 5/325) 1 tab PRN Q4HRS PRN PO PAIN 10/26/18 23:45 10/27/18 07:34 Hydromorphone HCl (Dilaudid) 1 mg PRN Q4HRS PRN IV PAIN 10/26/18 23:45 10/27/18 00:32 Enoxaparin Sodium (Lovenox 40mg Syringe) 40 mg Q24H SQ 10/27/18 09:00 10/27/18 08:47 Albuterol/ Ipratropium (Duoneb) 3 ml RTQID NEB 10/27/18 08:00 10/27/18 07:00 Imaging: Imaging: CT A/P The lung bases are clear. No pericardial effusion. Liver and spleen are unrem arkable. The pancreas is diffusely calcified comparable to study of 09/02/2018. Pancreatic duct dilatation also appears similar. No adrenal mass. Kidneys demonstrate symmetric enhancement. Lesion at the posterior left kidney is stable in size, measures 60 Hounsfield units could be a hemorrhagic cyst. Smaller low-density lesion of the right kidney too small to characterize appears similar. No hydronephrosis. No calcified gallstone. Aorta nonaneurysmal. Mildly calcified. No significant lymph node enlargement. No significant small bowel distention. No evidence of acute colitis. The appendix is visualized and appears normal. No evidence of ascites or pneumoperitoneum. No evidence of pelvic mass. Urinary bladder appears unremarkable. Degenerative spondylosis is again seen. No aggressive bone destruction. IMPRESSION: 1. Left renal lesion measures greater than a simple cyst. This could represent a hemorrhagic cyst versus other etiology. Nonemergent ultrasound could further evaluate. 2. Chronic pancreatic changes are again seen. 3. No acute findings are identified. PE: GEN: NAD HEENT: Atraumatic, PERRL LUNGS: CTAB HEART: RRR ABD: quiet, soft, epigastric tenderness (mild) - also he points to sternum EXTREMITY: No edema SKIN: No rashes, no jaundice NEURO/PSYCH: A & O 3 A/P: A/P: Chest and epigastric pain - better Chronic pancreatitis, alcoholism - still drinking GERD CRC screen - none -- Clears, ADAT, okay to DC per GI if tolerates. [facility]. RADHA STEVENS October 27, 2018 14:12
[2018-10-27] MEDS ORDERED: ALBUTEROL SULFATE 2.5 MG/3 ML NEBU. NEB PRN (15:00)
[2018-10-27 15:02] VITALS: BP 136/83
[2018-10-27 19:00] VITALS: BP 144/98
[2018-10-27 23:00] VITALS: BP 118/81
[2018-10-27] MEDS ORDERED: TEMAZEPAM 15 MG CAPSULE PO PRN (23:45)
[2018-10-28 03:00] VITALS: BP 116/78
[2018-10-28 06:21] LABS: ALBUMIN 3.1 g/dL (3.4-5.0); ALBUMIN/GLOBULIN RATIO 0.9 (1.0-1.7); CALCIUM 8.6 mg/dL (8.5-10.1); CREATININE 0.9 mg/dL (0.7-1.3); GFR 85.2; POTASSIUM 3.9 mmol/L (3.5-5.1); TOTAL BILIRUBIN 0.8 mg/dL (0.2-1.0); TOTAL PROTEIN 6.4 g/dL (6.4-8.2)
[2018-10-28 06:29] LABS: BASO % 1 % (0-3); EOS # 0.3 x10^3/uL (0.0-0.7); EOS % 6 % (0-3); HEMATOCRIT 41.7 % (39.0-53.0); HEMOGLOBIN 14.3 g/dL (13.0-17.5); LYMPH # 1.2 x10^3/uL (1.0-4.8); LYMPH % 24 % (24-48); MEAN CORPUSCULAR HEMOGLOBIN 31 pg (25-35); MEAN CORPUSCULAR HGB CONC 34 g/dL (31-37); MEAN CORPUSCULAR VOLUME 89 fL (79-100); MONO # 0.7 x10^3/uL (0.0-1.1); MONO % 14 % (0-9); NEUT # 2.7 x10^3uL (1.8-7.7); NEUT % 55 % (31-73); PLATELET COUNT 252 x10^3/uL (140-400); RED BLOOD COUNT 4.67 x10^6/uL (4.30-5.70); RED CELL DISTRIBUTION WIDTH 13.5 % (11.5-14.5); WHITE BLOOD COUNT 4.9 x10^3/uL (4.0-11.0)
[2018-10-28 06:34] VITALS: BP 119/84
[2018-10-28] MEDS: PANTOPRAZOLE 40 MG TABLET.DR. PO SCH ×2 (06:41→09:03)
--- NOTE | 2018-10-28 07:55 | RAD ---
Abdominal ultrasound, 10/28/2018: HISTORY: Epigastric pain, pancreatitis The gallbladder is at the upper limits of normal in size. There is a small amount of echogenic material within the dependent aspect of the gallbladder. No definite posterior acoustic shadowing is seen. The appearance suggests biliary sludge. The gallbladder wall is not thickened. The common hepatic duct at the grace hepatis level measures 6 mm which is at the upper limits of normal. No intrahepatic bile duct dilatation is seen. The hepatic echogenicity appears mildly increased. There is no evidence of a hepatic mass. The pancreas is not clearly defined due to shadowing related to extensive known pancreatic calcifications. The spleen is of normal size. There is a 2.5 cm cyst arising from the lateral aspect of the left kidney. The kidneys show no evidence of obstruction. There is moderate aortic calcific plaquing without evidence of aneurysm. The inferior vena cava is unremarkable. IMPRESSION: 1. Gallbladder sludge. Tiny calculi cannot be entirely excluded. 2. The common hepatic duct is at the upper limits of normal in size. 3. Increased hepatic echogenicity suggesting hepatic steatosis. 4. Chronic calcific pancreatitis. 5. Small left renal cyst. Electronically signed by: Nitesh Craig MD (10/28/2018 7:53 AM) [facility]
[2018-10-28] MEDS: ENOXAPARIN 40 MG/0.4 ML SYRINGE. SQ SCH ×2 (09:00→09:04)
[2018-10-28] MEDS: CYANOCOBALAMIN (VITAMIN B-12) 1,000 MCG TABLET. PO SCH (09:03)
[2018-10-28] MEDS: LIPASE/PROTEAS/AMYLAS 10/32/42 CAPSULE.DR. PO SCH ×2 (09:03→13:14)
[2018-10-28] MEDS: LOSARTAN POTASSIUM 50 MG TABLET. PO SCH (09:03)
[2018-10-28] MEDS: MULTIVIT INFUSN,ADULT 4,VIT K 10 ML, THIAMINE INJ 100 MG, FOLIC ACID INJ 1 MG in IV NOR... IV SCH (09:05)
--- NOTE | 2018-10-28 10:15 | PDOC ---
PROGRESS NOTES Chief Complaint Chief Complaint but he came to the ER because of 4 day history of severe epigastric pain some nausea but no emesis. No fevers no sick contacts. No change in BM. Patient was last admitted for cardiac rule out and 2016 when he had a negative echo. Patient was admitted in June 2018 for pancreatitis. Patient states that his lipase is usually not elevated. History of Present Illness History of Present Illness VTE Prophylaxis Ordered VTE Prophylaxis Devices: Contraindicated VTE Pharmacological Prophylaxi: Yes Assessment/Plan Assessment/Plan A/P: Abdominal pain - acute on Chronic Pancreatitis - will keep NPO Epigastric pain, need to rule out perforation or any acute abdomen but he lacks signs of acute abdomen on my PE, difftls include PUD, gastritis or NUD - GI following Heavy alcohol drinking - CIWA scale History of chronic pancreatitis-lipase is normal Accel HTN sec to pain POA - will keep on his meds Chest pain - seen by cardiology very recently, negative echo, will trend trops Obesity BMI 32 - counseled on weight loss Headache - cont toradol, compazine Ex smoker - counseled Chronic bronchitis - nebs Left renal lesion measures greater than a simple cyst. This could represent a hemorrhagic cyst versus other etiology. Nonemergent ultrasound could further evaluate. 2. Chronic pancreatic changes FEN - NPO PPX - Lovenox, PPI FULL CODE Dispo - inpatient for acute on chronic pancreatitis, chest pain 43 min pt exam, chart review, > 50% of time spent with exam, chart review, pt care coordination Vitals Vitals Vital Signs Date Time Temp Pulse Resp B/P (MAP) Pulse Ox O2 Delivery O2 Flow Rate FiO2 10/28/18 09:03 65 119/84 10/28/18 06:34 97.9 16 98 Room Air 97.9 Physical Exam General: Alert, Oriented X3, Cooperative, No acute distress Lungs: Clear Abdomen: Normal bowel sounds, Soft, No hepatosplenomegaly, No masses, Other (Epigastric tenderness) Extremities: No clubbing, No cyanosis, No edema, Normal pulses, No tenderness/swelling Skin: No rashes, No breakdown, No significant lesion Labs LABS PROCEDURE: ABDOMEN COMPLETE Abdominal ultrasound, 10/28/2018: HISTORY: Epigastric pain, pancreatitis The gallbladder is at the upper limits of normal in size. There is a small amount of echogenic material within the dependent aspect of the gallbladder. No definite posterior acoustic shadowing is seen. The appearance suggests biliary sludge. The gallbladder wall is not thickened. The common hepatic duct at the grace hepatis level measures 6 mm which is at the upper limits of normal. No intrahepatic bile duct dilatation is seen. The hepatic echogenicity appears mildly increased. There is no evidence of a hepatic mass. The pancreas is not clearly defined due to shadowing related to extensive known pancreatic calcifications. The spleen is of normal size. There is a 2.5 cm cyst arising from the lateral aspect of the left kidney. The kidneys show no evidence of obstruction. There is moderate aortic calcific plaquing without evidence of aneurysm. The inferior vena cava is unremarkable. IMPRESSION: 1. Gallbladder sludge. Tiny calculi cannot be entirely excluded. 2. The common hepatic duct is at the upper limits of normal in size. 3. Increased hepatic echogenicity suggesting hepatic steatosis. 4. Chronic calcific pancreatitis. 5. Small left renal cyst. Electronically signed by: Nitesh Craig MD (10/28/2018 7:53 AM) [facility] Laboratory Tests Test 10/28/18 04:55 White Blood Count 4.9 x10^3/uL (4.0-11.0) Red Blood Count 4.67 x10^6/uL (4.30-5.70) Hemoglobin 14.3 g/dL (13.0-17.5) Hematocrit 41.7 % (39.0-53.0) Mean Corpuscular Volume 89 fL (79-100) Mean Corpuscular Hemoglobin 31 pg (25-35) Mean Corpuscular Hemoglobin Concent 34 g/dL (31-37) Red Cell Distribution Width 13.5 % (11.5-14.5) Platelet Count 252 x10^3/uL (140-400) Neutrophils (%) (Auto) 55 % (31-73) Lymphocytes (%) (Auto) 24 % (24-48) Monocytes (%) (Auto) 14 % (0-9) Eosinophils (%) (Auto) 6 % (0-3) Basophils (%) (Auto) 1 % (0-3) Neutrophils # (Auto) 2.7 x10^3uL (1.8-7.7) Lymphocytes # (Auto) 1.2 x10^3/uL (1.0-4.8) Monocytes # (Auto) 0.7 x10^3/uL (0.0-1.1) Eosinophils # (Auto) 0.3 x10^3/uL (0.0-0.7) Basophils # (Auto) 0.0 x10^3/uL (0.0-0.2) Sodium Level 139 mmol/L (136-145) Potassium Level 3.9 mmol/L (3.5-5.1) Chloride Level 103 mmol/L (98-107) Carbon Dioxide Level 29 mmol/L (21-32) Anion Gap 7 (6-14) Blood Urea Nitrogen 9 mg/dL (8-26) Creatinine 0.9 mg/dL (0.7-1.3) Estimated GFR (Cockcroft-Gault) 85.2 BUN/Creatinine Ratio 10 (6-20) Glucose Level 96 mg/dL (70-99) Calcium Level 8.6 mg/dL (8.5-10.1) Total Bilirubin 0.8 mg/dL (0.2-1.0) Aspartate Amino Transf (AST/SGOT) 33 U/L (15-37) Alanine Aminotransferase (ALT/SGPT) 38 U/L (16-63) Alkaline Phosphatase 87 U/L (46-116) Total Protein 6.4 g/dL (6.4-8.2) Albumin 3.1 g/dL (3.4-5.0) Albumin/Globulin Ratio 0.9 (1.0-1.7) Assessment and Plan Assessmemt and Plan Problems Medical Problems: (1) Pancreatitis Status: Acute Comment Review of Relevant I have reviewed the following items annelise (where applicable) has been applied. Labs Laboratory Tests Test 10/26/18 18:47 10/26/18 20:42 10/27/18 01:45 10/27/18 07:35 White Blood Count 7.6 x10^3/uL (4.0-11.0) Red Blood Count 4.75 x10^6/uL (4.30-5.70) Hemoglobin 14.2 g/dL (13.0-17.5) Hematocrit 42.2 % (39.0-53.0) Mean Corpuscular Volume 89 fL (79-100) Mean Corpuscular Hemoglobin 30 pg (25-35) Mean Corpuscular Hemoglobin Concent 34 g/dL (31-37) Red Cell Distribution Width 13.3 % (11.5-14.5) Platelet Count 305 x10^3/uL (140-400) Neutrophils (%) (Auto) 56 % (31-73) Lymphocytes (%) (Auto) 27 % (24-48) Monocytes (%) (Auto) 13 % (0-9) Eosinophils (%) (Auto) 4 % (0-3) Basophils (%) (Auto) 1 % (0-3) Neutrophils # (Auto) 4.2 x10^3uL (1.8-7.7) Lymphocytes # (Auto) 2.0 x10^3/uL (1.0-4.8) Monocytes # (Auto) 1.0 x10^3/uL (0.0-1.1) Eosinophils # (Auto) 0.3 x10^3/uL (0.0-0.7) Basophils # (Auto) 0.1 x10^3/uL (0.0-0.2) Sodium Level 141 mmol/L (136-145) Potassium Level 3.7 mmol/L (3.5-5.1) Chloride Level 104 mmol/L (98-107) Carbon Dioxide Level 27 mmol/L (21-32) Anion Gap 10 (6-14) Blood Urea Nitrogen 14 mg/dL (8-26) Creatinine 0.9 mg/dL (0.7-1.3) Estimated GFR (Cockcroft-Gault) 85.2 BUN/Creatinine Ratio 16 (6-20) Glucose Level 110 mg/dL (70-99) Calcium Level 8.7 mg/dL (8.5-10.1) Total Bilirubin 0.3 mg/dL (0.2-1.0) Aspartate Amino Transf (AST/SGOT) 37 U/L (15-37) Alanine Aminotransferase (ALT/SGPT) 40 U/L (16-63) Alkaline Phosphatase 70 U/L (46-116) Troponin I Quantitative < 0.017 ng/mL (0.000-0.055) 0.019 ng/mL (0.000-0.055) < 0.017 ng/mL (0.000-0.055) Total Protein 6.6 g/dL (6.4-8.2) Albumin 3.3 g/dL (3.4-5.0) Albumin/Globulin Ratio 1.0 (1.0-1.7) Lipase 52 U/L (73-393) Urine Color Yellow Urine Clarity Clear Urine pH 7.5 Urine Specific [place] 1.015 Urine Protein Negative mg/dL (NEG-TRACE) Urine Glucose (UA) Negative mg/dL (NEG) Urine Ketones (Stick) Negative mg/dL (NEG) Urine Blood Negative (NEG) Urine Nitrite Negative (NEG) Urine Bilirubin Negative (NEG) Urine Urobilinogen Dipstick 0.2 mg/dL (0.2 mg/dL) Urine Leukocyte Esterase Negative (NEG) Urine RBC Rare /HPF (0-2) Urine WBC Occ /HPF (0-4) Urine Squamous Epithelial Cells None /LPF Urine Bacteria 0 /HPF (0-FEW) Urine Mucus Slight /LPF Test 10/28/18 04:55 White Blood Count 4.9 x10^3/uL (4.0-11.0) Red Blood Count 4.67 x10^6/uL (4.30-5.70) Hemoglobin 14.3 g/dL (13.0-17.5) Hematocrit 41.7 % (39.0-53.0) Mean Corpuscular Volume 89 fL (79-100) Mean Corpuscular Hemoglobin 31 pg (25-35) Mean Corpuscular Hemoglobin Concent 34 g/dL (31-37) Red Cell Distribution Width 13.5 % (11.5-14.5) Platelet Count 252 x10^3/uL (140-400) Neutrophils (%) (Auto) 55 % (31-73) Lymphocytes (%) (Auto) 24 % (24-48) Monocytes (%) (Auto) 14 % (0-9) Eosinophils (%) (Auto) 6 % (0-3) Basophils (%) (Auto) 1 % (0-3) Neutrophils # (Auto) 2.7 x10^3uL (1.8-7.7) Lymphocytes # (Auto) 1.2 x10^3/uL (1.0-4.8) Monocytes # (Auto) 0.7 x10^3/uL (0.0-1.1) Eosinophils # (Auto) 0.3 x10^3/uL (0.0-0.7) Basophils # (Auto) 0.0 x10^3/uL (0.0-0.2) Sodium Level 139 mmol/L (136-145) Potassium Level 3.9 mmol/L (3.5-5.1) Chloride Level 103 mmol/L (98-107) Carbon Dioxide Level 29 mmol/L (21-32) Anion Gap 7 (6-14) Blood Urea Nitrogen 9 mg/dL (8-26) Creatinine 0.9 mg/dL (0.7-1.3) Estimated GFR (Cockcroft-Gault) 85.2 BUN/Creatinine Ratio 10 (6-20) Glucose Level 96 mg/dL (70-99) Calcium Level 8.6 mg/dL (8.5-10.1) Total Bilirubin 0.8 mg/dL (0.2-1.0) Aspartate Amino Transf (AST/SGOT) 33 U/L (15-37) Alanine Aminotransferase (ALT/SGPT) 38 U/L (16-63) Alkaline Phosphatase 87 U/L (46-116) Total Protein 6.4 g/dL (6.4-8.2) Albumin 3.1 g/dL (3.4-5.0) Albumin/Globulin Ratio 0.9 (1.0-1.7) Laboratory Tests Test 10/28/18 04:55 White Blood Count 4.9 x10^3/uL (4.0-11.0) Red Blood Count 4.67 x10^6/uL (4.30-5.70) Hemoglobin 14.3 g/dL (13.0-17.5) Hematocrit 41.7 % (39.0-53.0) Mean Corpuscular Volume 89 fL (79-100) Mean Corpuscular Hemoglobin 31 pg (25-35) Mean Corpuscular Hemoglobin Concent 34 g/dL (31-37) Red Cell Distribution Width 13.5 % (11.5-14.5) Platelet Count 252 x10^3/uL (140-400) Neutrophils (%) (Auto) 55 % (31-73) Lymphocytes (%) (Auto) 24 % (24-48) Monocytes (%) (Auto) 14 % (0-9) Eosinophils (%) (Auto) 6 % (0-3) Basophils (%) (Auto) 1 % (0-3) Neutrophils # (Auto) 2.7 x10^3uL (1.8-7.7) Lymphocytes # (Auto) 1.2 x10^3/uL (1.0-4.8) Monocytes # (Auto) 0.7 x10^3/uL (0.0-1.1) Eosinophils # (Auto) 0.3 x10^3/uL (0.0-0.7) Basophils # (Auto) 0.0 x10^3/uL (0.0-0.2) Sodium Level 139 mmol/L (136-145) Potassium Level 3.9 mmol/L (3.5-5.1) Chloride Level 103 mmol/L (98-107) Carbon Dioxide Level 29 mmol/L (21-32) Anion Gap 7 (6-14) Blood Urea Nitrogen 9 mg/dL (8-26) Creatinine 0.9 mg/dL (0.7-1.3) Estimated GFR (Cockcroft-Gault) 85.2 BUN/Creatinine Ratio 10 (6-20) Glucose Level 96 mg/dL (70-99) Calcium Level 8.6 mg/dL (8.5-10.1) Total Bilirubin 0.8 mg/dL (0.2-1.0) Aspartate Amino Transf (AST/SGOT) 33 U/L (15-37) Alanine Aminotransferase (ALT/SGPT) 38 U/L (16-63) Alkaline Phosphatase 87 U/L (46-116) Total Protein 6.4 g/dL (6.4-8.2) Albumin 3.1 g/dL (3.4-5.0) Albumin/Globulin Ratio 0.9 (1.0-1.7) Medications Current Medications Sodium Chloride 1,000 ml @ 1,000 mls/hr Q1H IV Last administered on 10/26/18at 19:37; Start 10/26/18 at 19:07; Stop 10/26/18 at 20:06; Status DC Morphine Sulfate (Morphine Sulfate) 4 mg 1X ONCE IV Last administered on 10/26/18at 19:45; Start 10/26/18 at 19:45; Stop 10/26/18 at 19:46; Status DC Ondansetron HCl (Zofran Odt) 4 mg 1X ONCE PO Last administered on 10/26/18at 19:45; Start 10/26/18 at 19:45; Stop 10/26/18 at 19:46; Status DC Iohexol (Omnipaque 300 Mg/ml) 75 ml 1X ONCE IV Last administered on 10/26/18at 20:34; Start 10/26/18 at 20:30; Stop 10/26/18 at 20:32; Status DC Multi-Ingredient Mouthwash/Gargle (Gi Cocktail) 20 ml 1X ONCE SWSW Last administered on 10/26/18at 21:38; Start 10/26/18 at 21:30; Stop 10/26/18 at 21:31; Status DC Famotidine (Pepcid Vial) 20 mg 1X ONCE IVP Last administered on 10/26/18at 21:38; Start 10/26/18 at 21:30; Stop 10/26/18 at 21:31; Status DC Ketorolac Tromethamine (Toradol 30mg Vial) 30 mg 1X ONCE IV Last administered on 10/26/18at 22:27; Start 10/26/18 at 22:30; Stop 10/26/18 at 22:31; Status DC Prochlorperazine Edisylate (Compazine) 10 mg 1X ONCE IV Last administered on 10/26/18 23:37; Start 10/26/18 at 23:15; Stop 10/26/18 at 23:18; Status DC Cyanocobalamin (Vitamin B-12) 1,000 mcg DAILY PO Last administered on 10/28/18 09:03; Start 10/27/18 at 09:00 Ergocalciferol (Vitamin D2) 50,000 unit WEEKLY PO ; Start 11/02/18 at 09:00 Losartan Potassium (Cozaar) 50 mg DAILY PO Last administered on 10/28/18 09:03; Start 10/27/18 at 09:00 Diltiazem HCl (Cardizem 24hr Cd) 180 mg DAILY PO Last administered on 10/28/18 09:03; Start 10/27/18 at 09:00 Amylase/Lipase/ Protease (Zenpep 10,000) 2 cap QID PO Last administered on 10/28/18 09:03; Start 10/27/18 at 09:00 Pantoprazole Sodium (Protonix) 40 mg DAILYAC PO Last administered on 10/28/18at 09:03; Start 10/27/18 at 07:30 Multivitamins 10 ml/Thiamine HCl 100 mg/Folic Acid 1 mg/Sodium Chloride 1,011.2 ml @ 100 mls/ hr DAILY IV Last administered on 10/28/18at 09:05; Start 10/27/18 at 09:00; Stop 10/31/18 at 19:07 Lorazepam (Ativan) 2 mg PRN Q1HR PRN IV For CIWA 8-14; Start 10/26/18 at 23:45 Haloperidol Lactate (Haldol Inj) 5 mg PRN Q4HRS PRN IVP Hallucinatns,Confusn,Delirium; Start 10/26/18 at 23:45 Diphenhydramine HCl (Benadryl) 25 mg PRN Q15MIN PRN IVP EPS symptoms 2'Haldol admin; Start 10/26/18 at 23:45 Acetaminophen/ Hydrocodone Bitart (Lortab 5/325) 1 tab PRN Q4HRS PRN PO PAIN Last administered on 10/27/18at 23:04; Start 10/26/18 at 23:45 Hydromorphone HCl (Dilaudid) 1 mg PRN Q4HRS PRN IV PAIN Last administered on 10/27/18at 00:32; Start 10/26/18 at 23:45 Enoxaparin Sodium (Lovenox 40mg Syringe) 40 mg Q24H SQ Last administered on 10/27/18at 08:47; Start 10/27/18 at 09:00 Albuterol/ Ipratropium (Duoneb) 3 ml RTQID NEB Last administered on 10/27/18at 07:00; Start 10/27/18 at 08:00; Stop 10/27/18 at 14:45; Status DC Albuterol Sulfate (Ventolin Neb Soln) 2.5 mg PRN Q4HRS PRN NEB SHORTNESS OF BREATH; Start 10/27/18 at 15:00 Temazepam (Restoril) 15 mg PRN QHS PRN PO INSOMNIA Last administered on 10/27/18at 23:51; Start 10/27/18 at 23:45 Active Scripts Active Prilosec Otc (Omeprazole Magnesium) 20 Mg Tablet. 1 Tab PO DAILY Reported Cardizem Cd (Diltiazem Hcl) 180 Mg Cap.er.24h 1 Cap PO DAILY Losartan Potassium 50 Mg Tablet 50 Mg PO DAILY Vitamin D2 (Ergocalciferol (Vitamin D2)) 50,000 Unit Capsule 1 Cap PO WEEKLY Vitamin B-12 (Cyanocobalamin (Vitamin B-12)) 1,000 Mcg Tablet 1 Tab PO DAILY Harshad Orellana 24,000 Units Capsule (Lipase/Protease/Amylase) 1 Each Capsule. 1 Each PO QID Vitals/I & O Vital Sign - Last 24 Hours 10/27/18 10/27/18 10/27/18 10/27/18 11:04 14:23 15:02 18:17 Temp 98.2 98.3 98.2 98.3 Pulse 60 65 Resp 14 18 17 18 B/P (MAP) 134/88 (103) 136/83 (100) Pulse Ox 96 99 O2 Delivery Room Air Room Air Room Air Room Air 10/27/18 10/27/18 10/27/18 10/27/18 19:00 20:00 23:00 23:04 Temp 97.9 97.9 97.9 97.9 Pulse 72 56 Resp 17 18 20 B/P (MAP) 144/98 (113) 118/81 (93) Pulse Ox 96 96 96 O2 Delivery Room Air Room Air Room Air Room Air 10/28/18 10/28/18 10/28/18 10/28/18 00:04 03:00 06:34 09:03 Temp 97.9 97.9 97.9 97.9 Pulse 69 65 65 Resp 18 18 16 B/P (MAP) 116/78 (91) 119/84 (96) 119/84 Pulse Ox 95 95 98 O2 Delivery Room Air Room Air Room Air 10/28/18 09:03 Pulse 65 B/P (MAP) 119/84 Intake and Output 10/27/18 10/27/18 10/28/18 15:00 23:00 07:00 Intake Total 72798 ml 0 ml Output Total 480 ml 500 ml 400 ml Balance -480 ml 04770 ml -400 ml LISA MCGUIRE MD October 28, 2018 10:15
[2018-10-28 11:00] VITALS: BP 122/84
--- NOTE | 2018-10-28 14:02 | PDOC3 ---
Discharge Summary Date of Admission: October 26, 2018 Date of Discharge: October 28, 2018 Follow-Up: 3-5 days Admitting Diagnosis comment: discharge dx Assessment/Plan A/P: Abdominal pain - acute on Chronic Pancreatitis - on low fat diet, miguel well today Epigastric pain, need to rule out perforation or any acute abdomen but he lacks signs of acute abdomen on my PE, difftls include PUD, gastritis or NUD - GI following Heavy alcohol drinking - CIWA scale History of chronic pancreatitis-lipase is normal Accel HTN sec to pain POA - will keep on his meds Chest pain - seen by cardiology very recently, negative echo, will trend trops Obesity BMI 32 - counseled on weight loss Headache - cont toradol, compazine Ex smoker - counseled Chronic bronchitis - nebs Left renal lesion measures greater than a simple cyst. This could represent a hemorrhagic cyst versus other etiology. Nonemergent ultrasound could further evaluate. 2. Chronic pancreatic changes FEN - NPO PPX - Lovenox, PPI FULL CODE Dispo - inpatient for acute on chronic pancreatitis, chest pain 33 min pt exam, chart review d/c planning , > 50% of time spent with exam, chart review, pt care coordination Vitals Vitals Vital Signs Date Time Temp Pulse Resp B/P (MAP) Pulse Ox O2 Delivery O2 Flow Rate FiO2 10/28/18 09:03 65 119/84 10/28/18 06:34 97.9 16 98 Room Air 97.9 Physical Exam General: Alert, Oriented X3, Cooperative, No acute distress Lungs: Clear Abdomen: Normal bowel sounds, Soft, No hepatosplenomegaly, No masses, Other (Epigastric tenderness) Extremities: No clubbing, No cyanosis, No edema, Normal pulses, No ten derness/swelling Skin: No rashes, No breakdown, No significant lesion Labs LABS PROCEDURE: ABDOMEN COMPLETE Abdominal ultrasound, 10/28/2018: HISTORY: Epigastric pain, pancreatitis The gallbladder is at the upper limits of normal in size. There is a small amount of echogenic material within the dependent aspect of the gallbladder. No definite posterior acoustic shadowing is seen. The appearance suggests biliary sludge. The gallbladder wall is not thickened. The common hepatic duct at the grace hepatis level measures 6 mm which is at the upper limits of normal. No intrahepatic bile duct dilatation is seen. The hepatic echogenicity appears mildly increased. There is no evidence of a hepatic mass. The pancreas is not clearly defined due to shadowing related to extensive known pancreatic calcifications. The spleen is of normal size. There is a 2.5 cm cyst arising from the lateral aspect of the left kidney. The kidneys show no evidence of obstruction. There is moderate aortic calcific plaquing without evidence of aneurysm. The inferior vena cava is unremarkable. IMPRESSION: 1. Gallbladder sludge. Tiny calculi cannot be entirely excluded. 2. The common hepatic duct is at the upper limits of normal in size. 3. Increased hepatic echogenicity suggesting hepatic steatosis. 4. Chronic calcific pancreatitis. 5. Small left renal cyst. FINAL DIAGNOSIS Problems Medical Problems: (1) Pancreatitis Status: Acute Brief Hospital Course Mr. Howard is a 63 old [sex] who presented with [ acute pancreatitis] CONDITION AT DISCHARGE: Improved Discharge Medications Current Medications Sodium Chloride 1,000 ml @ 1,000 mls/hr Q1H IV Last administered on 10/26/18at 19:37; Start 10/26/18 at 19:07; Stop 10/26/18 at 20:06; Status DC Morphine Sulfate (Morphine Sulfate) 4 mg 1X ONCE IV Last administered on 10/26/18at 19:45; Start 10/26/18 at 19:45; Stop 10/26/18 at 19:46; Status DC Ondansetron HCl (Zofran Odt) 4 mg 1X ONCE PO Last administered on 10/26/18at 19:45; Start 10/26/18 at 19:45; Stop 10/26/18 at 19:46; Status DC Iohexol (Omnipaque 300 Mg/ml) 75 ml 1X ONCE IV Last administered on 10/26/18at 20:34; Start 10/26/18 at 20:30; Stop 10/26/18 at 20:32; Status DC Multi-Ingredient Mouthwash/Gargle (Gi Cocktail) 20 ml 1X ONCE SWSW Last administered on 10/26/18at 21:38; Start 10/26/18 at 21:30; Stop 10/26/18 at 21:31; Status DC Famotidine (Pepcid Vial) 20 mg 1X ONCE IVP Last administered on 10/26/18at 21:38; Start 10/26/18 at 21:30; Stop 10/26/18 at 21:31; Status DC Ketorolac Tromethamine (Toradol 30mg Vial) 30 mg 1X ONCE IV Last administered on 10/26/18at 22:27; Start 10/26/18 at 22:30; Stop 10/26/18 at 22:31; Status DC Prochlorperazine Edisylate (Compazine) 10 mg 1X ONCE IV Last administered on 10/26/18at 23:37; Start 10/26/18 at 23:15; Stop 10/26/18 at 23:18; Status DC Cyanocobalamin (Vitamin B-12) 1,000 mcg DAILY PO Last administered on 10/28/18at 09:03; Start 10/27/18 at 09:00 Ergocalciferol (Vitamin D2) 50,000 unit WEEKLY PO ; Start 11/02/18 at 09:00 Losartan Potassium (Cozaar) 50 mg DAILY PO Last administered on 10/28/18at 09:03; Start 10/27/18 at 09:00 Diltiazem HCl (Cardizem 24hr Cd) 180 mg DAILY PO Last administered on 10/28/18at 09:03; Start 10/27/18 at 09:00 Amylase/Lipase/ Protease (Zenpep 10,000) 2 cap QID PO Last administered on 10/28/18at 13:14; Start 10/27/18 at 09:00 Pantoprazole Sodium (Protonix) 40 mg DAILYAC PO Last administered on 10/28/18at 09:03; Start 10/27/18 at 07:30 Multivitamins 10 ml/Thiamine HCl 100 mg/Folic Acid 1 mg/Sodium Chloride 1,011.2 ml @ 100 mls/ hr DAILY IV Last administered on 10/28/18at 09:05; Start 10/27/18 at 09:00; Stop 10/31/18 at 19:07 Lorazepam (Ativan) 2 mg PRN Q1HR PRN IV For CIWA 8-14; Start 10/26/18 at 23:45 Haloperidol Lactate (Haldol Inj) 5 mg PRN Q4HRS PRN IVP Hallucinatns,Confusn,Delirium; Start 10/26/18 at 23:45 Diphenhydramine HCl (Benadryl) 25 mg PRN Q15MIN PRN IVP EPS symptoms 2'Haldol admin; Start 10/26/18 at 23:45 Acetaminophen/ Hydrocodone Bitart (Lortab 5/325) 1 tab PRN Q4HRS PRN PO PAIN Last administered on 10/27/18at 23:04; Start 10/26/18 at 23:45 Hydromorphone HCl (Dilaudid) 1 mg PRN Q4HRS PRN IV PAIN Last administered on 10/27/18at 00:32; Start 10/26/18 at 23:45 Enoxaparin Sodium (Lovenox 40mg Syringe) 40 mg Q24H SQ Last administered on 10/27/18at 08:47; Start 10/27/18 at 09:00 Albuterol/ Ipratropium (Duoneb) 3 ml RTQID NEB Last administered on 10/27/18at 07:00; Start 10/27/18 at 08:00; Stop 10/27/18 at 14:45; Status DC Albuterol Sulfate (Ventolin Neb Soln) 2.5 mg PRN Q4HRS PRN NEB SHORTNESS OF BREATH; Start 10/27/18 at 15:00 Temazepam (Restoril) 15 mg PRN QHS PRN PO INSOMNIA Last administered on 10/27/18at 23:51; Start 10/27/18 at 23:45 Active Scripts Active Prilosec Otc (Omeprazole Magnesium) 20 Mg Tablet.dr 1 Tab PO DAILY Reported Cardizem Cd (Diltiazem Hcl) 180 Mg Cap.er.24h 1 Cap PO DAILY Losartan Potassium 50 Mg Tablet 50 Mg PO DAILY Vitamin D2 (Ergocalciferol (Vitamin D2)) 50,000 Unit Capsule 1 Cap PO WEEKLY Vitamin B-12 (Cyanocobalamin (Vitamin B-12)) 1,000 Mcg Tablet 1 Tab PO DAILY Harshad Orellana 24,000 Units Capsule (Lipase/Protease/Amylase) 1 Each Capsule. 1 Each PO QID Vital Signs Vital Signs Date Time Temp Pulse Resp B/P (MAP) Pulse Ox O2 Delivery O2 Flow Rate FiO2 10/28/18 11:00 98.2 66 16 122/84 (97) 94 Room Air 98.2 Labs Laboratory Tests Test 10/26/18 18:47 10/26/18 20:42 10/27/18 01:45 10/27/18 07:35 White Blood Count 7.6 x10^3/uL (4.0-11.0) Red Blood Count 4.75 x10^6/uL (4.30-5.70) Hemoglobin 14.2 g/dL (13.0-17.5) Hematocrit 42.2 % (39.0-53.0) Mean Corpuscular Volume 89 fL (79-100) Mean Corpuscular Hemoglobin 30 pg (25-35) Mean Corpuscular Hemoglobin Concent 34 g/dL (31-37) Red Cell Distribution Width 13.3 % (11.5-14.5) Platelet Count 305 x10^3/uL (140-400) Neutrophils (%) (Auto) 56 % (31-73) Lymphocytes (%) (Auto) 27 % (24-48) Monocytes (%) (Auto) 13 % (0-9) Eosinophils (%) (Auto) 4 % (0-3) Basophils (%) (Auto) 1 % (0-3) Neutrophils # (Auto) 4.2 x10^3uL (1.8-7.7) Lymphocytes # (Auto) 2.0 x10^3/uL (1.0-4.8) Monocytes # (Auto) 1.0 x10^3/uL (0.0-1.1) Eosinophils # (Auto) 0.3 x10^3/uL (0.0-0.7) Basophils # (Auto) 0.1 x10^3/uL (0.0-0.2) Sodium Level 141 mmol/L (136-145) Potassium Level 3.7 mmol/L (3.5-5.1) Chloride Level 104 mmol/L (98-107) Carbon Dioxide Level 27 mmol/L (21-32) Anion Gap 10 (6-14) Blood Urea Nitrogen 14 mg/dL (8-26) Creatinine 0.9 mg/dL (0.7-1.3) Estimated GFR (Cockcroft-Gault) 85.2 BUN/Creatinine Ratio 16 (6-20) Glucose Level 110 mg/dL (70-99) Calcium Level 8.7 mg/dL (8.5-10.1) Total Bilirubin 0.3 mg/dL (0.2-1.0) Aspartate Amino Transf (AST/SGOT) 37 U/L (15-37) Alanine Aminotransferase (ALT/SGPT) 40 U/L (16-63) Alkaline Phosphatase 70 U/L (46-116) Troponin I Quantitative < 0.017 ng/mL (0.000-0.055) 0.019 ng/mL (0.000-0.055) < 0.017 ng/mL (0.000-0.055) Total Protein 6.6 g/dL (6.4-8.2) Albumin 3.3 g/dL (3.4-5.0) Albumin/Globulin Ratio 1.0 (1.0-1.7) Lipase 52 U/L (73-393) Urine Color Yellow Urine Clarity Clear Urine pH 7.5 Urine Specific [place] 1.015 Urine Protein Negative mg/dL (NEG-TRACE) Urine Glucose (UA) Negative mg/dL (NEG) Urine Ketones (Stick) Negative mg/dL (NEG) Urine Blood Negative (NEG) Urine Nitrite Negative (NEG) Urine Bilirubin Negative (NEG) Urine Urobilinogen Dipstick 0.2 mg/dL (0.2 mg/dL) Urine Leukocyte Esterase Negative (NEG) Urine RBC Rare /HPF (0-2) Urine WBC Occ /HPF (0-4) Urine Squamous Epithelial Cells None /LPF Urine Bacteria 0 /HPF (0-FEW) Urine Mucus Slight /LPF Test 10/28/18 04:55 White Blood Count 4.9 x10^3/uL (4.0-11.0) Red Blood Count 4.67 x10^6/uL (4.30-5.70) Hemoglobin 14.3 g/dL (13.0-17.5) Hematocrit 41.7 % (39.0-53.0) Mean Corpuscular Volume 89 fL (79-100) Mean Corpuscular Hemoglobin 31 pg (25-35) Mean Corpuscular Hemoglobin Concent 34 g/dL (31-37) Red Cell Distribution Width 13.5 % (11.5-14.5) Platelet Count 252 x10^3/uL (140-400) Neutrophils (%) (Auto) 55 % (31-73) Lymphocytes (%) (Auto) 24 % (24-48) Monocytes (%) (Auto) 14 % (0-9) Eosinophils (%) (Auto) 6 % (0-3) Basophils (%) (Auto) 1 % (0-3) Neutrophils # (Auto) 2.7 x10^3uL (1.8-7.7) Lymphocytes # (Auto) 1.2 x10^3/uL (1.0-4.8) Monocytes # (Auto) 0.7 x10^3/uL (0.0-1.1) Eosinophils # (Auto) 0.3 x10^3/uL (0.0-0.7) Basophils # (Auto) 0.0 x10^3/uL (0.0-0.2) Sodium Level 139 mmol/L (136-145) Potassium Level 3.9 mmol/L (3.5-5.1) Chloride Level 103 mmol/L (98-107) Carbon Dioxide Level 29 mmol/L (21-32) Anion Gap 7 (6-14) Blood Urea Nitrogen 9 mg/dL (8-26) Creatinine 0.9 mg/dL (0.7-1.3) Estimated GFR (Cockcroft-Gault) 85.2 BUN/Creatinine Ratio 10 (6-20) Glucose Level 96 mg/dL (70-99) Calcium Level 8.6 mg/dL (8.5-10.1) Total Bilirubin 0.8 mg/dL (0.2-1.0) Aspartate Amino Transf (AST/SGOT) 33 U/L (15-37) Alanine Aminotransferase (ALT/SGPT) 38 U/L (16-63) Alkaline Phosphatase 87 U/L (46-116) Total Protein 6.4 g/dL (6.4-8.2) Albumin 3.1 g/dL (3.4-5.0) Albumin/Globulin Ratio 0.9 (1.0-1.7) Laboratory Tests Test 10/28/18 04:55 White Blood Count 4.9 x10^3/uL (4.0-11.0) Red Blood Count 4.67 x10^6/uL (4.30-5.70) Hemoglobin 14.3 g/dL (13.0-17.5) Hematocrit 41.7 % (39.0-53.0) Mean Corpuscular Volume 89 fL (79-100) Mean Corpuscular Hemoglobin 31 pg (25-35) Mean Corpuscular Hemoglobin Concent 34 g/dL (31-37) Red Cell Distribution Width 13.5 % (11.5-14.5) Platelet Count 252 x10^3/uL (140-400) Neutrophils (%) (Auto) 55 % (31-73) Lymphocytes (%) (Auto) 24 % (24-48) Monocytes (%) (Auto) 14 % (0-9) Eosinophils (%) (Auto) 6 % (0-3) Basophils (%) (Auto) 1 % (0-3) Neutrophils # (Auto) 2.7 x10^3uL (1.8-7.7) Lymphocytes # (Auto) 1.2 x10^3/uL (1.0-4.8) Monocytes # (Auto) 0.7 x10^3/uL (0.0-1.1) Eosinophils # (Auto) 0.3 x10^3/uL (0.0-0.7) Basophils # (Auto) 0.0 x10^3/uL (0.0-0.2) Sodium Level 139 mmol/L (136-145) Potassium Level 3.9 mmol/L (3.5-5.1) Chloride Level 103 mmol/L (98-107) Carbon Dioxide Level 29 mmol/L (21-32) Anion Gap 7 (6-14) Blood Urea Nitrogen 9 mg/dL (8-26) Creatinine 0.9 mg/dL (0.7-1.3) Estimated GFR (Cockcroft-Gault) 85.2 BUN/Creatinine Ratio 10 (6-20) Glucose Level 96 mg/dL (70-99) Calcium Level 8.6 mg/dL (8.5-10.1) Total Bilirubin 0.8 mg/dL (0.2-1.0) Aspartate Amino Transf (AST/SGOT) 33 U/L (15-37) Alanine Aminotransferase (ALT/SGPT) 38 U/L (16-63) Alkaline Phosphatase 87 U/L (46-116) Total Protein 6.4 g/dL (6.4-8.2) Albumin 3.1 g/dL (3.4-5.0) Albumin/Globulin Ratio 0.9 (1.0-1.7) Allergies Allergies Coded Allergies Type Severity Reaction Last Updated Verified No Known Drug Allergies 12/07/15 No Disposition/Orders: D/C to Home Patient Instructions d/c planning 33 min FULBRIGHT,LISA W MD October 28, 2018 14:02
[2018-10-28] MEDS ORDERED: ALBU2.5V8 NEB (14:03)
--- NOTE | 2018-10-28 14:05 | DISCH ---
DISCHARGE INSTRUCTIONS Condition on Discharge Condition on Discharge: Stable Activity After Discharge Activity Instructions for Disc: No restrictions Lifting Instructions after Dis: No heavy lifting, No pulling or pushing Exercise Instruction after Dis: Progress as tolerated Driving Instructions after Dis: Do not drive Weight Bearing Status after Di: No restrictions Diet after Discharge Diet after Discharge: Cardiac, Regular Diet Texture: Regular Liquid Texture: Thin Liquid Swallowing Supervision: None needed Checks after Discharge Checks after discharge: Check blood press - daily Contacting the DR. after DC Call your doctor for: If your condition worsens (attend AA DAILY) Treatment/Equipment after DC Adaptive Equipment Issued: None LISA MCGUIRE MD October 28, 2018 14:05
[2018-10-28] MEDS ORDERED: THIA100T57 PO (14:06)
[2018-10-28] MEDS ORDERED: FOLI1TAB16 PO (14:06)
--- NOTE | 2018-10-28 14:18 | PDOC ---
G I PROGRESS NOTE Reason for Follow-up Alcohol abuse Subjective Anxious about MRI Physical Exam Lungs clear CV S1 S2 ABD +BS, osft, nontender Review of Relevant I have reviewed the following items annelise (where applicable) has been applied. Labs Laboratory Tests Test 10/26/18 18:47 10/26/18 20:42 10/27/18 01:45 10/27/18 07:35 White Blood Count 7.6 x10^3/uL (4.0-11.0) Red Blood Count 4.75 x10^6/uL (4.30-5.70) Hemoglobin 14.2 g/dL (13.0-17.5) Hematocrit 42.2 % (39.0-53.0) Mean Corpuscular Volume 89 fL (79-100) Mean Corpuscular Hemoglobin 30 pg (25-35) Mean Corpuscular Hemoglobin Concent 34 g/dL (31-37) Red Cell Distribution Width 13.3 % (11.5-14.5) Platelet Count 305 x10^3/uL (140-400) Neutrophils (%) (Auto) 56 % (31-73) Lymphocytes (%) (Auto) 27 % (24-48) Monocytes (%) (Auto) 13 % (0-9) Eosinophils (%) (Auto) 4 % (0-3) Basophils (%) (Auto) 1 % (0-3) Neutrophils # (Auto) 4.2 x10^3uL (1.8-7.7) Lymphocytes # (Auto) 2.0 x10^3/uL (1.0-4.8) Monocytes # (Auto) 1.0 x10^3/uL (0.0-1.1) Eosinophils # (Auto) 0.3 x10^3/uL (0.0-0.7) Basophils # (Auto) 0.1 x10^3/uL (0.0-0.2) Sodium Level 141 mmol/L (136-145) Potassium Level 3.7 mmol/L (3.5-5.1) Chloride Level 104 mmol/L (98-107) Carbon Dioxide Level 27 mmol/L (21-32) Anion Gap 10 (6-14) Blood Urea Nitrogen 14 mg/dL (8-26) Creatinine 0.9 mg/dL (0.7-1.3) Estimated GFR (Cockcroft-Gault) 85.2 BUN/Creatinine Ratio 16 (6-20) Glucose Level 110 mg/dL (70-99) Calcium Level 8.7 mg/dL (8.5-10.1) Total Bilirubin 0.3 mg/dL (0.2-1.0) Aspartate Amino Transf (AST/SGOT) 37 U/L (15-37) Alanine Aminotransferase (ALT/SGPT) 40 U/L (16-63) Alkaline Phosphatase 70 U/L (46-116) Troponin I Quantitative < 0.017 ng/mL (0.000-0.055) 0.019 ng/mL (0.000-0.055) < 0.017 ng/mL (0.000-0.055) Total Protein 6.6 g/dL (6.4-8.2) Albumin 3.3 g/dL (3.4-5.0) Albumin/Globulin Ratio 1.0 (1.0-1.7) Lipase 52 U/L (73-393) Urine Color Yellow Urine Clarity Clear Urine pH 7.5 Urine Specific [place] 1.015 Urine Protein Negative mg/dL (NEG-TRACE) Urine Glucose (UA) Negative mg/dL (NEG) Urine Ketones (Stick) Negative mg/dL (NEG) Urine Blood Negative (NEG) Urine Nitrite Negative (NEG) Urine Bilirubin Negative (NEG) Urine Urobilinogen Dipstick 0.2 mg/dL (0.2 mg/dL) Urine Leukocyte Esterase Negative (NEG) Urine RBC Rare /HPF (0-2) Urine WBC Occ /HPF (0-4) Urine Squamous Epithelial Cells None /LPF Urine Bacteria 0 /HPF (0-FEW) Urine Mucus Slight /LPF Test 10/28/18 04:55 White Blood Count 4.9 x10^3/uL (4.0-11.0) Red Blood Count 4.67 x10^6/uL (4.30-5.70) Hemoglobin 14.3 g/dL (13.0-17.5) Hematocrit 41.7 % (39.0-53.0) Mean Corpuscular Volume 89 fL (79-100) Mean Corpuscular Hemoglobin 31 pg (25-35) Mean Corpuscular Hemoglobin Concent 34 g/dL (31-37) Red Cell Distribution Width 13.5 % (11.5-14.5) Platelet Count 252 x10^3/uL (140-400) Neutrophils (%) (Auto) 55 % (31-73) Lymphocytes (%) (Auto) 24 % (24-48) Monocytes (%) (Auto) 14 % (0-9) Eosinophils (%) (Auto) 6 % (0-3) Basophils (%) (Auto) 1 % (0-3) Neutrophils # (Auto) 2.7 x10^3uL (1.8-7.7) Lymphocytes # (Auto) 1.2 x10^3/uL (1.0-4.8) Monocytes # (Auto) 0.7 x10^3/uL (0.0-1.1) Eosinophils # (Auto) 0.3 x10^3/uL (0.0-0.7) Basophils # (Auto) 0.0 x10^3/uL (0.0-0.2) Sodium Level 139 mmol/L (136-145) Potassium Level 3.9 mmol/L (3.5-5.1) Chloride Level 103 mmol/L (98-107) Carbon Dioxide Level 29 mmol/L (21-32) Anion Gap 7 (6-14) Blood Urea Nitrogen 9 mg/dL (8-26) Creatinine 0.9 mg/dL (0.7-1.3) Estimated GFR (Cockcroft-Gault) 85.2 BUN/Creatinine Ratio 10 (6-20) Glucose Level 96 mg/dL (70-99) Calcium Level 8.6 mg/dL (8.5-10.1) Total Bilirubin 0.8 mg/dL (0.2-1.0) Aspartate Amino Transf (AST/SGOT) 33 U/L (15-37) Alanine Aminotransferase (ALT/SGPT) 38 U/L (16-63) Alkaline Phosphatase 87 U/L (46-116) Total Protein 6.4 g/dL (6.4-8.2) Albumin 3.1 g/dL (3.4-5.0) Albumin/Globulin Ratio 0.9 (1.0-1.7) Laboratory Tests Test 10/28/18 04:55 White Blood Count 4.9 x10^3/uL (4.0-11.0) Red Blood Count 4.67 x10^6/uL (4.30-5.70) Hemoglobin 14.3 g/dL (13.0-17.5) Hematocrit 41.7 % (39.0-53.0) Mean Corpuscular Volume 89 fL (79-100) Mean Corpuscular Hemoglobin 31 pg (25-35) Mean Corpuscular Hemoglobin Concent 34 g/dL (31-37) Red Cell Distribution Width 13.5 % (11.5-14.5) Platelet Count 252 x10^3/uL (140-400) Neutrophils (%) (Auto) 55 % (31-73) Lymphocytes (%) (Auto) 24 % (24-48) Monocytes (%) (Auto) 14 % (0-9) Eosinophils (%) (Auto) 6 % (0-3) Basophils (%) (Auto) 1 % (0-3) Neutrophils # (Auto) 2.7 x10^3uL (1.8-7.7) Lymphocytes # (Auto) 1.2 x10^3/uL (1.0-4.8) Monocytes # (Auto) 0.7 x10^3/uL (0.0-1.1) Eosinophils # (Auto) 0.3 x10^3/uL (0.0-0.7) Basophils # (Auto) 0.0 x10^3/uL (0.0-0.2) Sodium Level 139 mmol/L (136-145) Potassium Level 3.9 mmol/L (3.5-5.1) Chloride Level 103 mmol/L (98-107) Carbon Dioxide Level 29 mmol/L (21-32) Anion Gap 7 (6-14) Blood Urea Nitrogen 9 mg/dL (8-26) Creatinine 0.9 mg/dL (0.7-1.3) Estimated GFR (Cockcroft-Gault) 85.2 BUN/Creatinine Ratio 10 (6-20) Glucose Level 96 mg/dL (70-99) Calcium Level 8.6 mg/dL (8.5-10.1) Total Bilirubin 0.8 mg/dL (0.2-1.0) Aspartate Amino Transf (AST/SGOT) 33 U/L (15-37) Alanine Aminotransferase (ALT/SGPT) 38 U/L (16-63) Alkaline Phosphatase 87 U/L (46-116) Total Protein 6.4 g/dL (6.4-8.2) Albumin 3.1 g/dL (3.4-5.0) Albumin/Globulin Ratio 0.9 (1.0-1.7) Medications Current Medications Sodium Chloride 1,000 ml @ 1,000 mls/hr Q1H IV Last administered on 10/26/18at 19:37; Start 10/26/18 at 19:07; Stop 10/26/18 at 20:06; Status DC Morphine Sulfate (Morphine Sulfate) 4 mg 1X ONCE IV Last administered on 10/26/18at 19:45; Start 10/26/18 at 19:45; Stop 10/26/18 at 19:46; Status DC Ondansetron HCl (Zofran Odt) 4 mg 1X ONCE PO Last administered on 10/26/18at 19:45; Start 10/26/18 at 19:45; Stop 10/26/18 at 19:46; Status DC Iohexol (Omnipaque 300 Mg/ml) 75 ml 1X ONCE IV Last administered on 10/26/18at 20:34; Start 10/26/18 at 20:30; Stop 10/26/18 at 20:32; Status DC Multi-Ingredient Mouthwash/Gargle (Gi Cocktail) 20 ml 1X ONCE SWSW Last administered on 10/26/18at 21:38; Start 10/26/18 at 21:30; Stop 10/26/18 at 21:31; Status DC Famotidine (Pepcid Vial) 20 mg 1X ONCE IVP Last administered on 10/26/18at 21:38; Start 10/26/18 at 21:30; Stop 10/26/18 at 21:31; Status DC Ketorolac Tromethamine (Toradol 30mg Vial) 30 mg 1X ONCE IV Last administered on 10/26/18at 22:27; Start 10/26/18 at 22:30; Stop 10/26/18 at 22:31; Status DC Prochlorperazine Edisylate (Compazine) 10 mg 1X ONCE IV Last administered on 10/26/18at 23:37; Start 10/26/18 at 23:15; Stop 10/26/18 at 23:18; Status DC Cyanocobalamin (Vitamin B-12) 1,000 mcg DAILY PO Last administered on 10/28/18 09:03; Start 10/27/18 at 09:00 Ergocalciferol (Vitamin D2) 50,000 unit WEEKLY PO ; Start 11/02/18 at 09:00 Losartan Potassium (Cozaar) 50 mg DAILY PO Last administered on 10/28/18 09:03; Start 10/27/18 at 09:00 Diltiazem HCl (Cardizem 24hr Cd) 180 mg DAILY PO Last administered on 10/28/18 09:03; Start 10/27/18 at 09:00 Amylase/Lipase/ Protease (Zenpep 10,000) 2 cap QID PO Last administered on 10/28/18 13:14; Start 10/27/18 at 09:00 Pantoprazole Sodium (Protonix) 40 mg DAILYAC PO Last administered on 10/28/18 09:03; Start 10/27/18 at 07:30 Multivitamins 10 ml/Thiamine HCl 100 mg/Folic Acid 1 mg/Sodium Chloride 1,011.2 ml @ 100 mls/ hr DAILY IV Last administered on 10/28/18 09:05; Start 10/27/18 at 09:00; Stop 10/31/18 at 19:07 Lorazepam (Ativan) 2 mg PRN Q1HR PRN IV For CIWA 8-14; Start 10/26/18 at 23:45 Haloperidol Lactate (Haldol Inj) 5 mg PRN Q4HRS PRN IVP Hallucinatns,Confusn,Delirium; Start 10/26/18 at 23:45 Diphenhydramine HCl (Benadryl) 25 mg PRN Q15MIN PRN IVP EPS symptoms 2'Haldol admin; Start 10/26/18 at 23:45 Acetaminophen/ Hydrocodone Bitart (Lortab 5/325) 1 tab PRN Q4HRS PRN PO PAIN Last administered on 10/27/18 23:04; Start 10/26/18 at 23:45 Hydromorphone HCl (Dilaudid) 1 mg PRN Q4HRS PRN IV PAIN Last administered on 10/27/18at 00:32; Start 10/26/18 at 23:45 Enoxaparin Sodium (Lovenox 40mg Syringe) 40 mg Q24H SQ Last administered on 5/2/19at 08:47; Start 10/27/18 at 09:00 Albuterol/ Ipratropium (Duoneb) 3 ml RTQID NEB Last administered on 10/27/18at 07:00; Start 10/27/18 at 08:00; Stop 10/27/18 at 14:45; Status DC Albuterol Sulfate (Ventolin Neb Soln) 2.5 mg PRN Q4HRS PRN NEB SHORTNESS OF BREATH; Start 10/27/18 at 15:00 Temazepam (Restoril) 15 mg PRN QHS PRN PO INSOMNIA Last administered on 10/27/18at 23:51; Start 10/27/18 at 23:45 Active Scripts Active Vitamin B-1 (Thiamine Hcl) 100 Mg Tablet 100 Mg PO DAILY08 30 Days Folic Acid 1 Mg Tablet 1 Tab PO DAILY Proair Hfa (Albuterol Sulfate) 8.5 Gm Hfa.aer.ad 2.5 Mg NEB PRN Q4HRS PRN 30 Days Prilosec Otc (Omeprazole Magnesium) 20 Mg Tablet. 1 Tab PO DAILY Reported Cardizem Cd (Diltiazem Hcl) 180 Mg Cap.er.24h 1 Cap PO DAILY Losartan Potassium 50 Mg Tablet 50 Mg PO DAILY Vitamin D2 (Ergocalciferol (Vitamin D2)) 50,000 Unit Capsule 1 Cap PO WEEKLY Vitamin B-12 (Cyanocobalamin (Vitamin B-12)) 1,000 Mcg Tablet 1 Tab PO DAILY Harshad Orellana 24,000 Units Capsule (Lipase/Protease/Amylase) 1 Each Capsule. 1 Each PO QID Vitals/I & O Vital Sign - Last 24 Hours 10/27/18 10/27/18 10/27/18 10/27/18 14:23 15:02 18:17 19:00 Temp 98.3 97.9 98.3 97.9 Pulse 65 72 Resp 18 17 18 17 B/P (MAP) 136/83 (100) 144/98 (113) Pulse Ox 99 96 O2 Delivery Room Air Room Air Room Air Room Air 10/27/18 10/27/18 10/27/18 10/28/18 20:00 23:00 23:04 00:04 Temp 97.9 97.9 Pulse 56 Resp 18 20 18 B/P (MAP) 118/81 (93) Pulse Ox 96 96 95 O2 Delivery Room Air Room Air Room Air Room Air 10/28/18 10/28/18 10/28/18 10/28/18 03:00 06:34 08:00 09:03 Temp 97.9 97.9 97.9 97.9 Pulse 69 65 65 Resp 18 16 B/P (MAP) 116/78 (91) 119/84 (96) 119/84 Pulse Ox 95 98 O2 Delivery Room Air Room Air Room Air 10/28/18 10/28/18 09:03 11:00 Temp 98.2 98.2 Pulse 65 66 Resp 16 B/P (MAP) 119/84 122/84 (97) Pulse Ox 94 O2 Delivery Room Air Intake and Output 10/27/18 10/27/18 10/28/18 15:00 23:00 07:00 Intake Total 91868 ml 0 ml Output Total 480 ml 500 ml 400 ml Balance -480 ml 44558 ml -400 ml Problem List Problems Medical Problems: (1) Pancreatitis Status: Acute Assessment Cirrhosis- with possible mass, MRI to assess for possible HCC development. s table otherwise to e released DIDI CROCKER MD October 28, 2018 14:18
[2018-10-28 15:00] VITALS: BP 122/85
--- NOTE | 2018-10-28 16:25 | NUR ---
Discharge Note: YOHANA PICKARD Discharge instructions and discharge home medications reviewed with Patient and a copy given. All questions have been answered and understanding verbalized. The following instructions and handouts were given: Acute Pancreatitis, Discharge Instructions Discontinued lines and drains: Peripheral IV Right AC removed, Catheter intact. Patient discharged to Home with Self-Care via Public Transport.
[2018-11-02] MEDS ORDERED: ERGOCALCIFEROL (VITAMIN D2) 50,000 UNIT CAPSULE. PO SCH (09:00)
== END 2018-10-28 16:34 | disposition home or self-care (01) | DRG 440 ==
LOC: ER 18:15 → 5 NORTH 22:00
PROVIDERS: ADMIT Internal Medicine; ATTEND Internal Medicine
DX: K85.90 Acute pancreatitis without necrosis or infection, unspecified (principal); E66.9 Obesity, unspecified; K86.1 Other chronic pancreatitis; F10.10 Alcohol abuse, uncomplicated; F17.210 Nicotine dependence, cigarettes, uncomplicated; I10 Essential (primary) hypertension; J42 Unspecified chronic bronchitis; K21.9 Gastro-esophageal reflux disease without esophagitis; F41.9 Anxiety disorder, unspecified; K74.60 Unspecified cirrhosis of liver; K76.0 Fatty (change of) liver, not elsewhere classified; K82.8 Other specified diseases of gallbladder; N28.1 Cyst of kidney, acquired; Z68.32 Body mass index [BMI] 32.0-32.9, adult; Z90.49 Acquired absence of other specified parts of digestive tract
CPT/HCPCS: 36415; 71046; 74177; 76700; 80053; 81001; 83690; 84484; 85025; 93005; 94640; 96361; 96374; 96375; J0780; J1170; J1650; J1885; J2270; J3490; J7030; J7620; Q0162; Q9967; 99285-25

== ENCOUNTER 2018-11-26 12:49 | Emergency (ER) | payer SELFPAY ==
[~2018-11-26] VITALS: Ht 177.8 cm; Wt 98.9 kg
[~2018-11-26 12:49] MED LIST changes: +ALBU2.5V8 NEB; +FOLI1TAB16 PO; +THIA100T57 PO
[2018-11-26 13:19] LABS: BASO % 0 % (0-3); EOS # 0.3 x10^3/uL (0.0-0.7); EOS % 4 % (0-3); HEMATOCRIT 45.1 % (39.0-53.0); HEMOGLOBIN 14.9 g/dL (13.0-17.5); LYMPH # 1.9 x10^3/uL (1.0-4.8); LYMPH % 31 % (24-48); MEAN CORPUSCULAR HEMOGLOBIN 30 pg (25-35); MEAN CORPUSCULAR HGB CONC 33 g/dL (31-37); MEAN CORPUSCULAR VOLUME 89 fL (79-100); MONO # 0.8 x10^3/uL (0.0-1.1); MONO % 13 % (0-9); NEUT # 3.2 x10^3uL (1.8-7.7); NEUT % 52 % (31-73); PLATELET COUNT 283 x10^3/uL (140-400); RED BLOOD COUNT 5.05 x10^6/uL (4.30-5.70); RED CELL DISTRIBUTION WIDTH 14.6 % (11.5-14.5); WHITE BLOOD COUNT 6.2 x10^3/uL (4.0-11.0)
[2018-11-26 13:31] LABS: FECAL OB PT NEGATIVE (NEG)
--- NOTE | 2018-11-26 13:36 | PHYS DOC ---
Past Medical History Past Medical History: Alcoholism, GERD, Hypertension, Pancreatitis Past Surgical History: Tonsillectomy Additional Past Surgical Histo: HERNIA REPAIR Alcohol Use: Heavy Drug Use: None Adult General Chief Complaint Chief Complaint: ABDOMINAL PAIN HPI HPI Patient is a 63 year old male who presents with complaining of epigastric pain and bloody stool. Patient complaining of episodes of rectal bleeding for the last 2 days and states that for 2 episodes of rectal bleeding a day after having bowel movements of bright red blood without blood clots or anal pain. Patient states he had history of hemorrhoid previously at this time his condition is different. Patient denies hematemesis and an other bleeding. Patient also complaining of epigastric pain since 10 AM as a constant and sharp pain with radiation to his back without shortness of breath, nausea and vomiting, dizzine ss. Patient states he had episodes of the same pain with previous episodes of pancreatitis related to alcoholism. Patient states he had 2 pints of vodka last night and small amount of alcohol today to help for his pain. Review of Systems Review of Systems Constitutional: Denies fever or chills [] Eyes: Denies change in visual acuity, redness, or eye pain [] HENT: Denies nasal congestion or sore throat [] Respiratory: Denies cough or shortness of breath [] Cardiovascular: No additional information not addressed in HPI [] GI: Reports abdominal pain, rectal bleeding, denies nausea, vomiting, bloody stools or diarrhea [] : Denies dysuria or hematuria [] Musculoskeletal: Denies back pain or joint pain [] Integument: Denies rash or skin lesions [] Neurologic: Denies headache, focal weakness or sensory changes [] Endocrine: Denies polyuria or polydipsia [] All other systems were reviewed and found to be within normal limits, except as documented in this note. Current Medications Current Medications Current Medications Medications (Trade) Dose Ordered Sig/Abimael Start Time Stop Time Status Last Admin Dose Admin Ketorolac Tromethamine (Toradol 30mg Vial) 30 mg 1X ONCE 11/26/18 14:15 11/26/18 14:16 DC 11/26/18 14:10 30 MG Sodium Chloride 1,000 ml @ 1,000 mls/hr 1X ONCE 11/26/18 14:15 11/26/18 15:14 11/26/18 14:10 1,000 MLS/HR Allergies Allergies Allergies Coded Allergies Type Severity Reaction Last Updated Verified No Known Drug Allergies 12/07/15 No Physical Exam Physical Exam Constitutional: Well nourished, mild distress, non-toxic appearance, anxious. [] HENT: Normocephalic, atraumatic, oropharynx moist. Eyes: PERRLA, EOMI, conjunctiva normal, no discharge. [] Neck: Normal range of motion, no tenderness, supple, no stridor. [] Cardiovascular:Heart rate regular rhythm, no murmur [] Lungs & Thorax: Bilateral breath sounds clear to auscultation [] Abdomen: Bowel sounds normal, soft, no tenderness, no masses, no pulsatile masses. 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 Skin: Warm, dry, no erythema, no rash. [] Back: No tenderness, no CVA tenderness. [] Extremities: No tenderness, no cyanosis, no clubbing, ROM intact, no edema. [] Neurologic: Alert and oriented X 3, normal motor function, normal sensory function, no focal deficits noted. [] Psychologic: Affect anxious, judgement normal, mood normal. [] Current Patient Data Vital Signs Vital Signs Date Time Temp Pulse Resp B/P (MAP) Pulse Ox O2 Delivery O2 Flow Rate FiO2 11/26/18 12:49 98.1 70 18 140/97 (111) 97 Room Air 98.1 Lab Values Laboratory Tests Test 11/26/18 13:00 11/26/18 13:35 White Blood Count 6.2 x10^3/uL (4.0-11.0) Red Blood Count 5.05 x10^6/uL (4.30-5.70) Hemoglobin 14.9 g/dL (13.0-17.5) Hematocrit 45.1 % (39.0-53.0) Mean Corpuscular Volume 89 fL (79-100) Mean Corpuscular Hemoglobin 30 pg (25-35) Mean Corpuscular Hemoglobin Concent 33 g/dL (31-37) Red Cell Distribution Width 14.6 % (11.5-14.5) H Platelet Count 283 x10^3/uL (140-400) Neutrophils (%) (Auto) 52 % (31-73) Lymphocytes (%) (Auto) 31 % (24-48) Monocytes (%) (Auto) 13 % (0-9) H Eosinophils (%) (Auto) 4 % (0-3) H Basophils (%) (Auto) 0 % (0-3) Neutrophils # (Auto) 3.2 x10^3uL (1.8-7.7) Lymphocytes # (Auto) 1.9 x10^3/uL (1.0-4.8) Monocytes # (Auto) 0.8 x10^3/uL (0.0-1.1) Eosinophils # (Auto) 0.3 x10^3/uL (0.0-0.7) Basophils # (Auto) 0.0 x10^3/uL (0.0-0.2) Stool Occult Blood Negative (NEG) Sodium Level 144 mmol/L (136-145) Potassium Level 4.5 mmol/L (3.5-5.1) Chloride Level 103 mmol/L (98-107) Carbon Dioxide Level 28 mmol/L (21-32) Anion Gap 13 (6-14) Blood Urea Nitrogen 13 mg/dL (8-26) Creatinine 1.0 mg/dL (0.7-1.3) Estimated GFR (Cockcroft-Gault) 75.5 BUN/Creatinine Ratio 13 (6-20) Glucose Level 113 mg/dL (70-99) H Calcium Level 9.3 mg/dL (8.5-10.1) Total Bilirubin 0.5 mg/dL (0.2-1.0) Aspartate Amino Transferase (AST) 34 U/L (15-37) Alanine Aminotransferase (ALT) 43 U/L (16-63) Alkaline Phosphatase 89 U/L (46-116) Troponin I Quantitative < 0.017 ng/mL (0.000-0.055) Total Protein 7.9 g/dL (6.4-8.2) Albumin 4.0 g/dL (3.4-5.0) Albumin/Globulin Ratio 1.0 (1.0-1.7) Lipase 51 U/L (73-393) L Ethyl Alcohol Level 173 mg/dL (0-10) H Urine Collection Type Void Urine Color Yellow Urine Clarity Clear Urine pH 5.5 Urine Specific [place] 1.020 Urine Protein Negative mg/dL (NEG-TRACE) Urine Glucose (UA) Negative mg/dL (NEG) Urine Ketones (Stick) Trace mg/dL (NEG) Urine Blood Negative (NEG) Urine Nitrite Negative (NEG) Urine Bilirubin Negative (NEG) Urine Urobilinogen Dipstick 0.2 mg/dL (0.2 mg/dL) Urine Leukocyte Esterase Negative (NEG) Urine RBC 0 /HPF (0-2) Urine WBC Rare /HPF (0-4) Urine Squamous Epithelial Cells Occ /LPF Urine Bacteria 0 /HPF (0-FEW) Urine Mucus Marked /LPF Urine Opiates Screen Neg (NEG) Urine Methadone Screen Neg (NEG) Urine Barbiturates Neg (NEG) Urine Phencyclidine Screen Neg (NEG) Urine Amphetamine/Methamphetamine Neg (NEG) Urine Benzodiazepines Screen Neg (NEG) Urine Cocaine Screen Neg (NEG) Urine Cannabinoids Screen Neg (NEG) Urine Ethyl Alcohol Pos (NEG) Laboratory Tests 11/26/18 13:00 Laboratory Tests 11/26/18 13:00 EKG EKG EKG interpreted by me. EKG at 1259 showed normal sinus rhythm at rate of 72, normal WI and QT intervals, no acute ST and T-wave abnormalities. Radiology/Procedures Radiology/Procedures [] Course & Med Decision Making Course & Med Decision Making Pertinent Labs reviewed. (See chart for details) Evaluation of patient in ER showed 62-year-old female patient with complaining of abdominal pain and rectal bleeding. Patient had alcohol on breath and unremarkable physical exam and labs except for alcohol level of 173. Patient was advised to follow-up with his alcohol. Dragon Disclaimer Dragon Disclaimer This electronic medical record was generated, in whole or in part, using a voice recognition dictation system. Departure Departure Impression: Primary Impression: Alcoholic gastritis Additional Impressions: ETOH abuse External hemorrhoid Disposition: 01 HOME, SELF-CARE (at 1435) Condition: IMPROVED Referrals: NO PCP (PCP) Patient Instructions: Alcohol Problems, Alcoholic Gastritis-Brief, Hemorrhoids Additional Instructions: Drink plenty of liquids Follow-up with your primary care physician in 3-5 days Return to ER if not getting better Scripts Ranitidine Hcl (ZANTAC) 150 Mg Tablet 1 TAB PO BID, #14 TAB Prov: JOSE DANIEL FRAZIER MD 11/26/18 Problem Qualifiers Primary Impression: Alcoholic gastritis Chronicity: acute Gastritis bleeding: without bleeding Qualified Codes: K29.20 - Alcoholic gastritis without bleeding JOSE DANIEL FRAZIER MD Nov 26, 2018 13:36
[2018-11-26 13:53] LABS: BILIRUBIN,URINE NEGATIVE (NEG); CLARITY,URINE CLEAR; COLOR,URINE YELLOW; NITRITE,URINE NEGATIVE (NEG); PH,URINE 5.5; PROTEIN,URINE NEGATIVE (NEG-TRACE); UROBILINOGEN,URINE 0.2 mg/dL (0.2 mg/dL)
[2018-11-26 14:00] LABS: BARBITURATES NEG (NEG); BENZODIAZEPINES NEG (NEG); CANNABINOIDS NEG (NEG); COCAINE NEG (NEG); METHADONE NEG (NEG); OPIATES NEG (NEG); PHENCYCLIDINE NEG (NEG)
[2018-11-26 14:01] LABS: CALCIUM 9.3 mg/dL (8.5-10.1); GFR 75.5; POTASSIUM 4.5 mmol/L (3.5-5.1)
[2018-11-26 14:05] LABS: AMPHETAMINE/METHAMPHETAMINE NEG (NEG)
[2018-11-26 14:05] LABS: TOTAL BILIRUBIN 0.5 mg/dL (0.2-1.0); TOTAL PROTEIN 7.9 g/dL (6.4-8.2)
[2018-11-26 14:06] LABS: BACTERIA,URINE 0 /HPF (0-FEW); RBC,URINE 0 /HPF (0-2); SQUAMOUS EPITHELIAL CELL,UR OCC /LPF; WBC,URINE RARE /HPF (0-4)
[2018-11-26] MEDS ORDERED: KETOROLAC 30 MG/ML VIAL. IV ONE (14:15)
[2018-11-26] MEDS ORDERED: IV NORMAL SALINE 1000ML BAG 1,000 ML IV ONE (14:15)
[2018-11-26] MEDS ORDERED: RANI-376 PO (14:36)
[2018-11-26 15:00] VITALS: BP 130/87
[2018-11-26] MEDS ORDERED: LIDO:MAALOX 1:1 20 ML SINGLE DOSE. SWSW ONE (15:00)
--- NOTE | 2018-11-27 11:26 | EKG ---
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
== END 2018-11-26 15:25 | disposition home or self-care (01) ==
LOC: ER 12:49
DX: K29.20 Alcoholic gastritis without bleeding (principal); K64.4 Residual hemorrhoidal skin tags; K92.1 Melena; F10.20 Alcohol dependence, uncomplicated; Y90.6 Blood alcohol level of 120-199 mg/100 ml; K21.9 Gastro-esophageal reflux disease without esophagitis; I10 Essential (primary) hypertension; Z90.89 Acquired absence of other organs
CPT/HCPCS: 36415; 80053; 80307; 81001; 82274; 83690; 84484; 85025; 93005; 96361; 96374; 99285; G0480; J1885; J7030

== ENCOUNTER 2019-10-30 14:17 | Emergency (ER) | payer SELFPAY ==
[~2019-10-30] VITALS: Ht 175.3 cm; Wt 94.5 kg
[~2019-10-30 14:17] MED LIST changes: +CYAN-25 PO; -CYAN10005 PO; +RANI-376 PO
[2019-10-30] MEDS ORDERED: MORPHINE SULFATE 4 MG/ML VIAL. IV/SQ PRN (15:00)
[2019-10-30] MEDS ORDERED: ONDANSETRON PF 4 MG/2 ML VIAL. IVP ONE (15:00)
[2019-10-30] MEDS ORDERED: FAMOTIDINE 20 MG/2 ML VIAL IVP ONE (15:00)
[2019-10-30 15:08] LABS: BASO # 0.1 x10^3/uL (0.0-0.2); BASO % 1 % (0-3); EOS # 0.2 x10^3/uL (0.0-0.7); EOS % 2 % (0-3); HEMATOCRIT 41.8 % (39.0-53.0); HEMOGLOBIN 14.2 g/dL (13.0-17.5); LYMPH # 1.3 x10^3/uL (1.0-4.8); LYMPH % 16 % (24-48); MEAN CORPUSCULAR HEMOGLOBIN 30 pg (25-35); MEAN CORPUSCULAR HGB CONC 34 g/dL (31-37); MEAN CORPUSCULAR VOLUME 86 fL (79-100); MONO # 1.3 x10^3/uL (0.0-1.1); MONO % 16 % (0-9); NEUT # 5.4 x10^3/uL (1.8-7.7); NEUT % 65 % (31-73); PLATELET COUNT 194 x10^3/uL (140-400); RED BLOOD COUNT 4.83 x10^6/uL (4.30-5.70); RED CELL DISTRIBUTION WIDTH 14.6 % (11.5-14.5); WHITE BLOOD COUNT 8.4 x10^3/uL (4.0-11.0)
[2019-10-30 15:25] LABS: CALCIUM 8.6 mg/dL (8.5-10.1); CREATININE 0.8 mg/dL (0.7-1.3); GFR 97.3; POTASSIUM 4.2 mmol/L (3.5-5.1)
[2019-10-30 15:28] LABS: ALBUMIN 3.9 g/dL (3.4-5.0); ALBUMIN/GLOBULIN RATIO 1.1 (1.0-1.7); MAGNESIUM 1.8 mg/dL (1.8-2.4); TOTAL BILIRUBIN 0.5 mg/dL (0.2-1.0); TOTAL PROTEIN 7.5 g/dL (6.4-8.2)
--- NOTE | 2019-10-30 15:34 | EKG ---
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
[2019-10-30] MEDS ORDERED: IOHEXOL 300 MG/ML 100ML VIAL. ONE (15:45)
[2019-10-30] MEDS ORDERED: MULTIVIT INFUSN,ADULT 4,VIT K 10 ML, THIAMINE INJ 100 MG, FOLIC ACID INJ 1 MG in IV NOR... IV ONE (16:00)
--- NOTE | 2019-10-30 16:12 | RAD ---
EXAM: CT Abdomen and Pelvis with IV contrast CLINICAL HISTORY: Abdominal pain, history of pancreatitis. COMPARISON: 10/26/2018, 09/02/2018 ultrasound 10/28/2018 TECHNIQUE: Helical CT of the abdomen and pelvis was performed following the administration of intravenous contrast. Axial, coronal and sagittal reformatted images were generated. PQRS compliance statement - One or more of the following individualized dose reduction techniques were utilized for this study: 1. Automated exposure control 2. Adjustment of the mA and/or kV according to patient size 3. Use of iterative reconstruction technique FINDINGS: Lower chest: Lung bases are clear. Aortic root calcification are seen. Abdomen and Pelvis: Hepatic hypoattenuation may be seen with fatty liver. High density material dependently within the gallbladder likely sludge. Dense calcifications of the pancreas are seen. Pancreatic ductal and common bile ductal dilatation is seen. Calcified granuloma are seen within the spleen. Adrenal glands are normal. Symmetric nephrograms. Left interpolar renal hypodense renal lesion described as cyst on prior ultrasound 10/28/2018. No hydronephrosis or hydroureter. Bladder is unremarkable. Moderate colonic stool content is seen. Appendix is normal. No small or large bowel dilatation. No evidence for bowel obstruction. No abdominal or pelvic ascites. No abdominal or pelvic lymphadenopathy. Dense aortic calcifications of the infrarenal aorta. Ectasia of the infrarenal aorta is seen measuring up to 2.7 cm, measuring 2.5 cm at a more normal proximal level. Trace fat-containing periumbilical hernia is seen. Subcutaneous cystic structure measuring 1.3 cm within the anterior right abdominal wall is seen, possibly sebaceous cyst (Series 2 image 18). Bones: Degenerative changes of the spine are seen. No aggressive osseous lesion is seen. IMPRESSION: Dense pancreatic calcifications are seen, likely chronic pancreatitis. No definite superimposed acute inflammatory change to suggest superimposed acute pancreatitis. Chronic biliary and pancreatic ductal dilation likely residuals of chronic pancreatitis. High density material dependently within the gallbladder likely sludge. Electronically signed by: Alberto King MD (10/30/2019 4:09 PM) MELISSA
[2019-10-30 16:23] LABS: BILIRUBIN,URINE NEGATIVE (NEG); CLARITY,URINE CLOUDY; COLOR,URINE YELLOW; NITRITE,URINE NEGATIVE (NEG); PH,URINE 6.5 (<5.0-8.0); PROTEIN,URINE NEGATIVE (NEG-TRACE); UROBILINOGEN,URINE 0.2 mg/dL (0.2 mg/dL)
[2019-10-30 16:33] LABS: BACTERIA,URINE 0 /HPF (0-FEW); RBC,URINE 0 /HPF (0-2); WBC,URINE 0 /HPF (0-4)
[2019-10-30 16:38] LABS: BARBITURATES NEG (NEG); BENZODIAZEPINES NEG (NEG); CANNABINOIDS NEG (NEG); COCAINE NEG (NEG); METHADONE NEG (NEG); OPIATES POS (NEG); PHENCYCLIDINE NEG (NEG)
[2019-10-30 16:40] LABS: AMPHETAMINE/METHAMPHETAMINE NEG (NEG)
[2019-10-30] MEDS ORDERED: LIDO:MAALOX 1:1 20 ML SINGLE DOSE. SWSW ONE (17:00)
[2019-10-30] MEDS ORDERED: MORPHINE SULFATE 10 MG/ML VIAL. IV ONE (17:15)
[2019-10-30 17:29] VITALS: BP 141/84
[2019-10-30] MEDS ORDERED: GABA300C18 PO (17:35)
--- NOTE | 2019-10-30 17:35 | PHYS DOC ---
Past Medical History Past Medical History: Alcoholism, GERD, Hypertension, Pancreatitis Past Surgical History: Tonsillectomy Additional Past Surgical Histo: HERNIA REPAIR Smoking Status: Former Smoker Alcohol Use: Heavy Drug Use: None General Adult EDM: Chief Complaint: CHEST PAIN HPI: HPI: Patient is a 64 year old male with a history of alcoholism, pancreatitis, hypertension, who presents today complaining of 9 out of 10 epigastric pain that began at 5 AM this morning. Patient reports binge drinking hard liquor for 3 days. He states he has not had any alcohol for the 24 hours. Denies any fever. Denies any nausea or vomiting. Denies any diarrhea. He states this is his typical presentation of pancreatitis. He states he is aware he has an alcohol problem and will follow-up with AA. Review of Systems: Review of Systems: Constitutional: Denies fever or chills. [] Eyes: Denies change in visual acuity. [] HENT: Denies nasal congestion or sore throat. [] Respiratory: Denies cough or shortness of breath. [] Cardiovascular: Denies chest pain or edema. [] GI: Reports epigastric abdominal pain, denies nausea, vomiting, bloody stools or diarrhea. [] : Denies dysuria. [] Musculoskeletal: Denies back pain or joint pain. [] Integument: Denies rash. [] Neurologic: Denies headache, focal weakness or sensory changes. [] Endocrine: Denies polyuria or polydipsia. [] Lymphatic: Denies swollen glands. [] Psychiatric: Reports alcoholism Heart Score: Risk Factors: Risk Factors: DM, Current or recent (<one month) smoker, HTN, HLP, family history of CAD, obesity. Risk Scores: Score 0 - 3: 2.5% MACE over next 6 weeks - Discharge Home Score 4 - 6: 20.3% MACE over next 6 weeks - Admit for Clinical Observation Score 7 - 10: 72.7% MACE over next 6 weeks - Early Invasive Strategies Current Medications: Current Medications Medications (Trade) Dose Ordered Sig/Abimael Start Time Stop Time Status Last Admin Dose Admin Famotidine (Pepcid Vial) 20 mg 1X ONCE 10/30/19 15:00 10/30/19 15:01 DC 10/30/19 15:17 20 MG Iohexol (Omnipaque 300 Mg/ml) 100 ml STK-MED ONCE 10/30/19 15:45 5/4/20 15:45 DC Morphine Sulfate (Morphine Sulfate) 5 mg 1X ONCE 10/30/19 17:15 10/30/19 17:16 DC 10/30/19 17:07 5 MG Multi-Ingredient Mouthwash/Gargle (Gi Cocktail) 20 ml 1X ONCE 10/30/19 17:00 10/30/19 17:01 DC 10/30/19 17:07 20 ML Multivitamins 10 ml/Thiamine HCl 100 mg/Folic Acid 1 mg/Sodium Chloride 1,011.2 ml @ 1,000.088 mls/hr 1X ONCE 10/30/19 16:00 10/30/19 17:00 DC 10/30/19 15:16 1,000.088 MLS/HR Ondansetron HCl (Zofran) 4 mg 1X ONCE 10/30/19 15:00 10/30/19 15:01 DC 10/30/19 15:17 4 MG Allergies: Allergies: Allergies Coded Allergies Type Severity Reaction Last Updated Verified No Known Drug Allergies 12/07/15 No Physical Exam: PE: Constitutional: Well developed, well nourished, no acute distress, non-toxic appearance. [] HENT: Normocephalic, atraumatic, bilateral external ears normal, oropharynx moist, no oral exudates, nose normal. [] Eyes: PERRLA, EOMI, conjunctiva normal, no discharge. [] Neck: Normal range of motion, no tenderness, supple, no stridor. [] Cardiovascular:Heart rate regular rhythm, no murmur [] Lungs & Thorax: Bilateral breath sounds clear to auscultation [] Abdomen: Bowel sounds normal, soft, mild epigastric tenderness, no masses, no pulsatile masses. [] Skin: Warm, dry, no erythema, no rash. [] Back: No tenderness, no CVA tenderness. [] Extremities: No tenderness, no cyanosis, no clubbing, ROM intact, no edema. [] Neurologic: Alert and oriented X 3, normal motor function, normal sensory function, no focal deficits noted. [] Psychologic: Affect normal, judgement normal, mood normal. [] Current Patient Data: Labs: Laboratory Tests Test 10/30/19 14:33 10/30/19 16:15 White Blood Count 8.4 x10^3/uL (4.0-11.0) Red Blood Count 4.83 x10^6/uL (4.30-5.70) Hemoglobin 14.2 g/dL (13.0-17.5) Hematocrit 41.8 % (39.0-53.0) Mean Corpuscular Volume 86 fL (79-100) Mean Corpuscular Hemoglobin 30 pg (25-35) Mean Corpuscular Hemoglobin Concent 34 g/dL (31-37) Red Cell Distribution Width 14.6 % (11.5-14.5) H Platelet Count 194 x10^3/uL (140-400) Neutrophils (%) (Auto) 65 % (31-73) Lymphocytes (%) (Auto) 16 % (24-48) L Monocytes (%) (Auto) 16 % (0-9) H Eosinophils (%) (Auto) 2 % (0-3) Basophils (%) (Auto) 1 % (0-3) Neutrophils # (Auto) 5.4 x10^3/uL (1.8-7.7) Lymphocytes # (Auto) 1.3 x10^3/uL (1.0-4.8) Monocytes # (Auto) 1.3 x10^3/uL (0.0-1.1) H Eosinophils # (Auto) 0.2 x10^3/uL (0.0-0.7) Basophils # (Auto) 0.1 x10^3/uL (0.0-0.2) Sodium Level 140 mmol/L (136-145) Potassium Level 4.2 mmol/L (3.5-5.1) Chloride Level 102 mmol/L (98-107) Carbon Dioxide Level 26 mmol/L (21-32) Anion Gap 12 (6-14) Blood Urea Nitrogen 13 mg/dL (8-26) Creatinine 0.8 mg/dL (0.7-1.3) Estimated GFR (Cockcroft-Gault) 97.3 BUN/Creatinine Ratio 16 (6-20) Glucose Level 110 mg/dL (70-99) H Calcium Level 8.6 mg/dL (8.5-10.1) Magnesium Level 1.8 mg/dL (1.8-2.4) Total Bilirubin 0.5 mg/dL (0.2-1.0) Aspartate Amino Transferase (AST) 34 U/L (15-37) Alanine Aminotransferase (ALT) 39 U/L (16-63) Alkaline Phosphatase 90 U/L (46-116) Creatine Kinase 96 U/L (39-308) Creatine Kinase MB (Mass) 1.1 ng/mL (0.0-3.6) Creatine Kinase MB Relative Index 1.1 % (0-4) Troponin I Quantitative < 0.017 ng/mL (0.000-0.055) AX-Tkd-N-Type Natriuretic Peptide 31 pg/mL (0-124) Total Protein 7.5 g/dL (6.4-8.2) Albumin 3.9 g/dL (3.4-5.0) Albumin/Globulin Ratio 1.1 (1.0-1.7) Lipase 39 U/L (73-393) L Ethyl Alcohol Level < 10 mg/dL (0-10) Urine Collection Type Void Urine Color Yellow Urine Clarity Cloudy Urine pH 6.5 (<5.0-8.0) Urine Specific [place] 1.020 (1.000-1.030) Urine Protein Negative mg/dL (NEG-TRACE) Urine Glucose (UA) Negative mg/dL (NEG) Urine Ketones (Stick) Negative mg/dL (NEG) Urine Blood Negative (NEG) Urine Nitrite Negative (NEG) Urine Bilirubin Negative (NEG) Urine Urobilinogen Dipstick 0.2 mg/dL (0.2 mg/dL) Urine Leukocyte Esterase Negative (NEG) Urine RBC 0 /HPF (0-2) Urine WBC 0 /HPF (0-4) Urine Bacteria 0 /HPF (0-FEW) Urine Opiates Screen Pos (NEG) Urine Methadone Screen Neg (NEG) Urine Barbiturates Neg (NEG) Urine Phencyclidine Screen Neg (NEG) Urine Amphetamine/Methamphetamine Neg (NEG) Urine Benzodiazepines Screen Neg (NEG) Urine Cocaine Screen Neg (NEG) Urine Cannabinoids Screen Neg (NEG) Urine Ethyl Alcohol Neg (NEG) Laboratory Tests 10/30/19 14:33 Laboratory Tests 10/30/19 14:33 Vital Signs: Vital Signs Date Time Temp Pulse Resp B/P (MAP) Pulse Ox O2 Delivery O2 Flow Rate FiO2 10/30/19 17:07 20 10/30/19 16:30 7 140/82 (101) 94 10/30/19 14:31 98.5 Room Air 98.5 EKG: EKG: [] Radiology/Procedures: Radiology/Procedures: [] Course & Med Decision Making: Course & Med Decision Making Pertinent Labs and Imaging studies reviewed. (See chart for details) This is a 64-year-old male patient presenting to the ED today complaining of epigastric abdominal pain, symptoms have been going on since 5 AM this morning, has history of alcoholism, reports drinking heavily for 3 days then stopping in the last 24 hours. Labs are negative for any acute findings, CAT scan was noted for chronic pancreatitis and gallbladder sludge. Patient refused to give us urine. Patient was given banana bag and pain was managed with morphine, of note patient complained to the nurses on why the morphine was being pushed slowly. Upon discharge he spent an incredible amount of time baking for " opioids for 2 days". Informed patient he will be discharged with gabapentin, no opiates. Follow-up with GI, he stated he will follow-up with AA for his alcoholism. Shelly Disclaimer: Shelly Disclaimer: This electronic medical record was generated, in whole or in part, using a voice recognition dictation system. Departure Departure Impression: Primary Impression: Chronic pancreatitis Qualified Codes: K86.0 - Alcohol-induced chronic pancreatitis Additional Impression: ETOH abuse Disposition: HOME, SELF-CARE Condition: STABLE Referrals: NO PCP (PCP) DIDI CROCKER MD follow up in the course of this week Patient Instructions: Alcohol Problems Additional Instructions: Please consider getting help for alcohol abuse. Please take a clear liquid diet Follow up with AA for help with alcoholism Scripts Gabapentin (GABAPENTIN) 300 Mg Capsule 300 MG PO TID PRN for PAIN, #20 CAP Prov: BIN LANCASTER APRN 10/30/19 BIN LANCASTER APRN October 30, 2019 17:35
== END 2019-10-30 17:47 | disposition home or self-care (01) ==
LOC: ER 14:17
DX: K86.0 Alcohol-induced chronic pancreatitis (principal); F10.10 Alcohol abuse, uncomplicated; R10.13 Epigastric pain; K21.9 Gastro-esophageal reflux disease without esophagitis; I10 Essential (primary) hypertension; Z90.89 Acquired absence of other organs; Z98.890 Other specified postprocedural states; Z87.891 Personal history of nicotine dependence
CPT/HCPCS: 36415; 74177; 80053; 80307; 81001; 82553; 83690; 83735; 83880; 84484; 85025; 93005; 96365; 96375; 96376; 99285; G0480; J2270; J2405; J3411; J3490; J7030